=== PATIENT | female | born 1945 | race Caucasian/White ===

== ENCOUNTER 2021-08-18 12:04 | Emergency (ER) | payer MEDICARE ==
--- NOTE | 2021-08-18 14:08 | ED ---
GI Bleed HPI - General Source: patient, RN notes reviewed Mode of arrival: ambulatory Limitations: no limitations <Mick Freed - Last Filed: 08/18/21 14:06> <Julia Persaud - Last Filed: 08/19/21 01:05> - General Stated complaint: poss bowel blockage Time Seen by Provider: 08/18/21 13:30 - History of Present Illness Initial comments: 76-year-old female presents emergency Department with chief complaint of diarrhea, rectal bleeding. Patient states his been going on since last week. Patient states that she did see her primary care physician who placed her on some Imodium. Patient is concern as she's having severe watery diarrhea with bright red blood. Patient is on Eliquis. Patient states she is on Eliquis for prior DVT. Patient has no fevers chills no chest pain or shortness breath. (Mick Freed) - Related Data Home Medications Medication Instructions Recorded Confirmed Apixaban [Eliquis] 5 mg PO BID 08/18/21 08/18/21 Furosemide [Lasix] 20 mg PO TUFR 08/18/21 08/18/21 Hydrochlorothiazide 12.5 mg PO DAILY 08/18/21 08/18/21 [hydroCHLOROthiazide] Loratadine [Claritin] 10 mg PO DAILY PRN 08/18/21 08/18/21 Melatonin 5 mg PO HS PRN 08/18/21 08/18/21 Verapamil HCl [Verapamil ER] 120 mg PO DAILY 08/18/21 08/18/21 Allergies Allergy/AdvReac Type Severity Reaction Status Date / Time Penicillins Allergy Swelling Verified 08/18/21 15:54 Review of Systems ROS Other: All systems not noted in ROS Statement are negative. <Mick Freed - Last Filed: 08/18/21 14:06> ROS Other: All systems not noted in ROS Statement are negative. <Julia Persaud - Last Filed: 08/19/21 01:05> ROS Statement: Those systems with pertinent positive or pertinent negative responses have been documented in the HPI. General Exam General appearance: alert, in no apparent distress, other (Well-developed, well- nourished female in no acute distress. Heart rate 81, respirations 18, blood pressure 135/68.) ENT exam: Present: normal exam, mucous membranes moist Respiratory exam: Present: normal lung sounds bilaterally. Absent: respiratory distress, wheezes, rales, rhonchi, stridor Cardiovascular Exam: Present: regular rate, normal rhythm, normal heart sounds. Absent: systolic murmur, diastolic murmur, rubs, gallop, clicks GI/Abdominal exam: Present: soft, normal bowel sounds. Absent: distended, tenderness, guarding, rebound Rectal exam: Present: heme (+) stool. Absent: mass, tenderness Back exam: Absent: CVA tenderness (R), CVA tenderness (L) Neurological exam: Present: alert, oriented X3, CN II-XII intact Psychiatric exam: Present: normal affect, normal mood Skin exam: Present: warm, dry, intact, normal color. Absent: rash <Julia Persaud - Last Filed: 08/19/21 01:05> Course <Julia Persaud - Last Filed: 08/19/21 01:05> Vital Signs 08/18/21 08/18/21 08/18/21 14:05 16:00 17:00 Pulse Rate 81 Respiratory 18 18 18 Rate Blood Pressure 135/68 08/18/21 18:00 Pulse Rate Respiratory 18 Rate Blood Pressure - Reevaluation(s) Reevaluation #1: 08/18/21 9734: Patient continues to be unable to provide stool sample. Resting comfortably at this time; no cramping, nausea, or distress. Reports good appetite. (Julia Persaud) Medical Decision Making - Lab Data Result diagrams: 08/18/21 14:26 08/18/21 14:26 - Radiology Data Radiology results: report reviewed, image reviewed <Julia Persaud - Last Filed: 08/19/21 01:05> - Medical Decision Making 76-year-old female with a history of anticoagulation therapy due to DVT, is evaluated for complaints of bloody diarrhea for the past 5 days. No significant physical exam findings. Patient is hemodynamically stable with no dizziness or l ightheadedness. Lab findings do indicate hypokalemia, K+ 3.0, which was supplemented PO. Other noteworthy labs include Hemoglobin 17.3, hematocrit 49.9. FOBT +. CT of the abdomen and pelvis was obtained showing no obstruction and mild wall thickening involving the sigmoid colon. This patient's case was discussed with my attending Dr. Donnelly. Patient is instructed to follow up with her primary care provider for further evaluation and treatment. Return parameters were discussed in detail. Patient verbalizes understanding and agrees with this plan. (Julia Persaud) - Lab Data Lab Results 08/18/21 08/18/21 08/18/21 Range/Units 14:20 14:26 14:26 WBC 8.8 (3.8-10.6) k/uL RBC 5.30 (3.80-5.40) m/uL Hgb 17.3 H (11.4-16.0) gm/dL Hct 49.9 H (34.0-46.0) % MCV 94.1 (80.0-100.0) fL MCH 32.6 (25.0-35.0) pg MCHC 34.6 (31.0-37.0) g/dL RDW 13.9 (11.5-15.5) % Plt Count 198 (150-450) k/uL MPV 7.9 Neutrophils % 49 % Lymphocytes % 41 % Monocytes % 6 % Eosinophils % 2 % Basophils % 1 % Neutrophils # 4.3 (1.3-7.7) k/uL Lymphocytes # 3.6 (1.0-4.8) k/uL Monocytes # 0.5 (0-1.0) k/uL Eosinophils # 0.2 (0-0.7) k/uL Basophils # 0.1 (0-0.2) k/uL PT 11.2 (9.0-12.0) sec INR 1.1 (<1.2) APTT 28.0 (22.0-30.0) sec Sodium (137-145) mmol/L Potassium (3.5-5.1) mmol/L Chloride (98-107) mmol/L Carbon Dioxide (22-30) mmol/L Anion Gap mmol/L BUN (7-17) mg/dL Creatinine (0.52-1.04) mg/dL Est GFR (CKD-EPI)AfAm (>60 ml/min/1.73 sqM) Est GFR (CKD-EPI)NonAf (>60 ml/min/1.73 sqM) Glucose (74-99) mg/dL Plasma Lactic Acid Nishant (0.7-2.0) mmol/L Calcium (8.4-10.2) mg/dL Total Bilirubin (0.2-1.3) mg/dL AST (14-36) U/L ALT (4-34) U/L Alkaline Phosphatase (38-126) U/L Troponin I (0.000-0.034) ng/mL Total Protein (6.3-8.2) g/dL Albumin (3.5-5.0) g/dL Lipase (23-300) U/L Urine Color Urine Appearance (Clear) Urine pH (5.0-8.0) Ur Specific [place] (1.001-1.035) Urine Protein (Negative) Urine Glucose (UA) (Negative) Urine Ketones (Negative) Urine Blood (Negative) Urine Nitrite (Negative) Urine Bilirubin (Negative) Urine Urobilinogen (<2.0) mg/dL Ur Leukocyte Esterase (Negative) Urine RBC (0-5) /hpf Urine WBC (0-5) /hpf Ur Squamous Epith Cells (0-4) /hpf Urine Bacteria (None) /hpf Urine Mucus (None) /hpf Stool Occult Blood (Negative) Blood Type Blood Type Confirm O Positive Blood Type Recheck Bld Type Recheck Status Antibody Screen Spec Expiration Date 08/18/21 08/18/21 08/18/21 Range/Units 14:26 14:26 14:26 WBC (3.8-10.6) k/uL RBC (3.80-5.40) m/uL Hgb (11.4-16.0) gm/dL Hct (34.0-46.0) % MCV (80.0-100.0) fL MCH (25.0-35.0) pg MCHC (31.0-37.0) g/dL RDW (11.5-15.5) % Plt Count (150-450) k/uL MPV Neutrophils % % Lymphocytes % % Monocytes % % Eosinophils % % Basophils % % Neutrophils # (1.3-7.7) k/uL Lymphocytes # (1.0-4.8) k/uL Monocytes # (0-1.0) k/uL Eosinophils # (0-0.7) k/uL Basophils # (0-0.2) k/uL PT (9.0-12.0) sec INR (<1.2) APTT (22.0-30.0) sec Sodium 137 (137-145) mmol/L Potassium 3.0 L (3.5-5.1) mmol/L Chloride 101 (98-107) mmol/L Carbon Dioxide 25 (22-30) mmol/L Anion Gap 11 mmol/L BUN 19 H (7-17) mg/dL Creatinine 0.60 (0.52-1.04) mg/dL Est GFR (CKD-EPI)AfAm >90 (>60 ml/min/1.73 sqM) Est GFR (CKD-EPI)NonAf >90 (>60 ml/min/1.73 sqM) Glucose 103 H (74-99) mg/dL Plasma Lactic Acid Nishant 1.4 (0.7-2.0) mmol/L Calcium 9.7 (8.4-10.2) mg/dL Total Bilirubin 1.6 H (0.2-1.3) mg/dL AST 34 (14-36) U/L ALT 14 (4-34) U/L Alkaline Phosphatase 81 (38-126) U/L Troponin I <0.012 (0.000-0.034) ng/mL Total Protein 7.8 (6.3-8.2) g/dL Albumin 4.4 (3.5-5.0) g/dL Lipase 56 (23-300) U/L Urine Color Urine Appearance (Clear) Urine pH (5.0-8.0) Ur Specific [place] (1.001-1.035) Urine Protein (Negative) Urine Glucose (UA) (Negative) Urine Ketones (Negative) Urine Blood (Negative) Urine Nitrite (Negative) Urine Bilirubin (Negative) Urine Urobilinogen (<2.0) mg/dL Ur Leukocyte Esterase (Negative) Urine RBC (0-5) /hpf Urine WBC (0-5) /hpf Ur Squamous Epith Cells (0-4) /hpf Urine Bacteria (None) /hpf Urine Mucus (None) /hpf Stool Occult Blood (Negative) Blood Type Blood Type Confirm Blood Type Recheck Bld Type Recheck Status Antibody Screen Spec Expiration Date 08/18/21 08/18/21 08/18/21 Range/Units 14:26 18:35 19:58 WBC (3.8-10.6) k/uL RBC (3.80-5.40) m/uL Hgb (11.4-16.0) gm/dL Hct (34.0-46.0) % MCV (80.0-100.0) fL MCH (25.0-35.0) pg MCHC (31.0-37.0) g/dL RDW (11.5-15.5) % Plt Count (150-450) k/uL MPV Neutrophils % % Lymphocytes % % Monocytes % % Eosinophils % % Basophils % % Neutrophils # (1.3-7.7) k/uL Lymphocytes # (1.0-4.8) k/uL Monocytes # (0-1.0) k/uL Eosinophils # (0-0.7) k/uL Basophils # (0-0.2) k/uL PT (9.0-12.0) sec INR (<1.2) APTT (22.0-30.0) sec Sodium (137-145) mmol/L Potassium (3.5-5.1) mmol/L Chloride (98-107) mmol/L Carbon Dioxide (22-30) mmol/L Anion Gap mmol/L BUN (7-17) mg/dL Creatinine (0.52-1.04) mg/dL Est GFR (CKD-EPI)AfAm (>60 ml/min/1.73 sqM) Est GFR (CKD-EPI)NonAf (>60 ml/min/1.73 sqM) Glucose (74-99) mg/dL Plasma Lactic Acid Nishant (0.7-2.0) mmol/L Calcium (8.4-10.2) mg/dL Total Bilirubin (0.2-1.3) mg/dL AST (14-36) U/L ALT (4-34) U/L Alkaline Phosphatase (38-126) U/L Troponin I (0.000-0.034) ng/mL Total Protein (6.3-8.2) g/dL Albumin (3.5-5.0) g/dL Lipase (23-300) U/L Urine Color Yellow Urine Appearance Cloudy H (Clear) Urine pH 6.5 (5.0-8.0) Ur Specific [place] 1.014 (1.001-1.035) Urine Protein Negative (Negative) Urine Glucose (UA) Negative (Negative) Urine Ketones Negative (Negative) Urine Blood Negative (Negative) Urine Nitrite Negative (Negative) Urine Bilirubin Negative (Negative) Urine Urobilinogen <2.0 (<2.0) mg/dL Ur Leukocyte Esterase Trace H (Negative) Urine RBC 2 (0-5) /hpf Urine WBC 4 (0-5) /hpf Ur Squamous Epith Cells 4 (0-4) /hpf Urine Bacteria Few H (None) /hpf Urine Mucus Rare H (None) /hpf Stool Occult Blood Positive H (Negative) Blood Type O Positive Blood Type Confirm Blood Type Recheck No Previous Record Bld Type Recheck Status CABO Indicated Antibody Screen NEGATIVE Spec Expiration Date 08/21/20212325 - Radiology Data CT of the abdomen and pelvis was obtained. Report was reviewed incident entirety. Impression per Dr. De Leon is nonspecific abdomen with no obstruction. She will wall thickening involving the sigmoid colon could be associated with mild colitis correlate clinically. Additional findings include to gallbladder hydrops with cholelithiasis. (Julia Persaud) Disposition <Mick Freed - Last Filed: 08/18/21 14:06> Is patient prescribed a controlled substance at d/c from ED?: No Time of Disposition: 19:47 <Julia Persaud - Last Filed: 08/19/21 01:05> Clinical Impression: Diarrhea, Hypokalemia, GI (gastrointestinal bleed) Disposition: HOME SELF-CARE Condition: Stable Instructions (If sedation given, give patient instructions): Gastrointestinal Bleeding (ED), Hypokalemia (ED), Acute Diarrhea (ED) Additional Instructions: Follow-up with Dr. Borges tomorrow morning for further evaluation and treatment. Let him know that you were seen in the emergency department and had a full workup including lab work and CAT scan. Return to this emergency Department or go to your nearest emergency department with any new, worsening, or concerning symptoms. Referrals: Pablo Borges MD [Primary Care Provider] - 1-2 days
[2021-08-18 14:11] VITALS: BP 135/68; PULSE 81; RESP 18
[2021-08-18 14:43] LABS: Basophils # (A) 0.1 k/uL (0-0.2); Basophils % (A) 1 %; Eosinophils # (A) 0.2 k/uL (0-0.7); Eosinophils % (A) 2 %; HCT 49.9 % (34.0-46.0); HGB 17.3 gm/dL (11.4-16.0); Lymphocytes # (A) 3.6 k/uL (1.0-4.8); Lymphocytes % (A) 41 %; MCH 32.6 pg (25.0-35.0); MCHC 34.6 g/dL (31.0-37.0); MCV 94.1 fL (80.0-100.0); Mean Platelet Volume 7.9; Monocytes # (A) 0.5 k/uL (0-1.0); Monocytes % (A) 6 %; Neutrophils # (A) 4.3 k/uL (1.3-7.7); Neutrophils % (A) 49 %; Platelet Count 198 k/uL (150-450); RDW 13.9 % (11.5-15.5); WBC 8.8 k/uL (3.8-10.6)
[2021-08-18 14:54] LABS: INR 1.1 (<1.2); Prothrombin Time 11.2 sec (9.0-12.0)
[2021-08-18 14:55] LABS: ALT 14 U/L (4-34); AST 34 U/L (14-36); African American GFR (CKD) >90 (>60 ml/min/1.73 sqM); Albumin 4.4 g/dL (3.5-5.0); Alkaline Phosphatase 81 U/L (38-126); Anion Gap 11 mmol/L; Blood Urea Nitrogen 19 mg/dL (7-17); Calcium 9.7 mg/dL (8.4-10.2); Carbon Dioxide 25 mmol/L (22-30); Chloride 101 mmol/L (98-107); Glucose 103 mg/dL (74-99); Lipase 56 U/L (23-300); Non-African American GFR(CKD) >90 (>60 ml/min/1.73 sqM); Sodium 137 mmol/L (137-145); Total Bilirubin 1.6 mg/dL (0.2-1.3); Total Protein 7.8 g/dL (6.3-8.2)
[2021-08-18] MEDS ORDERED: PANTOPRAZOLE 40 MG/10 ML VIAL IVP STA (15:24)
[2021-08-18] MEDS ORDERED: SODIUM CHLORIDE 0.9% 1,000 ML IV STA (15:24)
[2021-08-18] MEDS ORDERED: POTASSIUM CHLORIDE ER 20 MEQ TAB.ER PO STA (15:27)
--- NOTE | 2021-08-18 17:48 | CT ---
EXAMINATION TYPE: CT abdomen pelvis w con DATE OF EXAM: 08/18/2021 COMPARISON: None HISTORY: Abdominal pain and bloody diarrhea x [address] DLP: 834.3 mGycm Automated exposure control for dose reduction was used. CONTRAST: CT scan of the abdomen pelvis is performed with IV Contrast, patient injected with 100 mL of Isovue 3 00. FINDINGS- LUNG BASES-suggest COPD and chronic interstitial lung disease.. LIVER/TO-rgw-guztaxuwxlc liver can be associated with hepatic steatosis correlate with liver function exam. Gallbladder is prominent there is a tiny gallstones PANCREAS- No gross abnormality is seen. SPLEEN- No gross abnormality is seen. ADRENALS- No gross abnormality is seen. KIDNEYS/BLADDER-no hydronephrosis.. BOWEL-diverticulosis with no diagnostic evidence of diverticulitis. Very mild induration wall thicken ing sigmoid colon correlate for colitis. Underlying mucosal lesion not excluded. Normal appendix. LYMPH NODES- No greater than 1cm abdominal or pelvic lymph nodes areappreciated. OSSEOUS STRUCTURES- No significant abnormality is seen. OTHER- bladder somewhat low-lying in position correlate for cystocele. Atherosclerotic change aorta and its sidebranches. IMPRESSION- 1. Nonspecific abdomen with no obstruction. Nonvisualization of the appendix. Questionable wall thick ening involving the sigmoid colon could be associated with mild colitis correlate clinically. 2 gallb ladder hydrops with cholelithiasis
[2021-08-18 18:47] LABS: Appearance,Urine Cloudy (Clear); Bacteria,Urine Few /hpf; Bilirubin,Urine Negative (Negative); Blood,Urine Negative (Negative); Color,Urine Yellow; Glucose,Urine (UA) Negative (Negative); Ketones,Urine Negative (Negative); Leukocyte Esterase,Urine Trace (Negative); Mucus,Urine Rare /hpf; Nitrite,Urine Negative (Negative); PH, Urine 6.5 (5.0-8.0); Protein,Urine Negative (Negative); RBC,Urine 2 /hpf (0-5); Specific Gravity,Urine 1.014 (1.001-1.035); Squamous Epithelial Cell,Urine 4 /hpf (0-4); Urobilinogen,Urine <2.0 mg/dL (<2.0); WBC,Urine 4 /hpf (0-5)
== END 2021-08-18 20:02 | disposition home or self-care (01) ==
LOC: EC 12:04
DX: K92.2 Gastrointestinal hemorrhage, unspecified (principal); E87.6 Hypokalemia; R19.7 Diarrhea, unspecified
CPT/HCPCS: 36415; 86900; 86901; 80053; 83605; 83690; 84484; 85025; 85610; 85730; 86850; 82272; 81001; 74177; 99284; 96374; 96361; C9113; Q9967

== ENCOUNTER 2023-06-26 12:02 | Inpatient (IN) | payer MEDICARE, BC ==
[2023-06-26] MEDS ORDERED: HYDROmorphone 1 MG/ML 1 ML SYRINGE IVP STA (12:26)
--- NOTE | 2023-06-26 12:27 | ED ---
Lower Extremity Injury HPI - General Chief Complaint: Extremity Injury, Lower Stated Complaint: Fall-right leg injury Time Seen by Provider: 06/26/23 12:10 Source: patient, RN notes reviewed Mode of arrival: EMS - History of Present Illness Initial Comments: This is a 77-year-old female who presents to the emergency department for a fall. Patient is a transfer from [facility], where she was evaluated earlier today after a fall. She had lost her balance last night, when she fell and landed on her right hip. EMS was called because she was unable to get back up. She was found to have a femur fracture, and was subsequently transferred here for intervention. Patient is on Eliquis for prior DVT. She is also on oxygen at home. Additionally, patient did break her back 10 months ago and is continuing to deal with pain from that as well. MD Complaint: hip injury - Related Data Home Medications Medication Instructions Recorded Confirmed Apixaban [Eliquis] 5 mg PO BID 08/18/21 06/26/23 Furosemide [Lasix] 20 mg PO DAILY 08/18/21 06/26/23 Melatonin 5 mg PO HS 08/18/21 06/26/23 Albuterol Sulfate [Ventolin HFA] 2 puff INHALATION RT-Q6H PRN 06/26/23 06/26/23 Aspirin EC [Ecotrin Low Dose] 81 mg PO DAILY 06/26/23 06/26/23 Atorvastatin [Lipitor] 80 mg PO HS 06/26/23 06/26/23 Budesonide/Formoterol Fumarate 2 puff INHALATION RT-BID 06/26/23 06/26/23 [Symbicort 160-4.5 Mcg Inhaler] DULoxetine HCL [Cymbalta] 30 mg PO DAILY 06/26/23 06/26/23 Diclofenac Sodium Gel [Voltaren 2 - 4 gm TOPICAL QID PRN 06/26/23 06/26/23 Gel] Ergocalciferol [Vitamin D2 (1250 1,250 mcg PO Q7D 06/26/23 06/26/23 Mcg = 33835 Iu)] HYDROcodone/APAP 7.5-325MG [[place] 1 - 1.5 tab PO Q6H PRN 06/26/23 06/26/23 7.5-325] LORazepam [Ativan] 0.5 mg PO Q8H 06/26/23 06/26/23 Metoprolol Succinate (ER) [Toprol 100 mg PO DAILY 06/26/23 06/26/23 Xl] Omeprazole 40 mg PO DAILY 06/26/23 06/26/23 Potassium Chloride [Klor-Con M20] 20 meq PO DAILY 06/26/23 06/26/23 Sennosides [Senokot] 8.6 mg PO DAILY 06/26/23 06/26/23 polyethylene glycoL 3350 [Miralax] 17 gm PO BID 06/26/23 06/26/23 Allergies Allergy/AdvReac Type Severity Reaction Status Date / Time Penicillins Allergy Swelling Verified 06/26/23 15:35 Review of Systems ROS Statement: Those systems with pertinent positive or pertinent negative responses have been documented in the HPI. ROS Other: All systems not noted in ROS Statement are negative. Past Medical History Past Medical History: Cancer, COPD, Hypertension Additional Past Medical History / Comment(s): R leg DVT, breast CA, History of Any Multi-Drug Resistant Organisms: None Reported Past Surgical History: Hysterectomy Past Psychological History: Anxiety, Depression Smoking Status: Former smoker Past Alcohol Use History: None Reported Past Drug Use History: None Reported - Past Family History Father History Unknown: Yes General Exam Limitations: no limitations General appearance: alert, in distress Head exam: Present: atraumatic, normocephalic, normal inspection Respiratory exam: Present: normal lung sounds bilaterally. Absent: respiratory distress, wheezes, rales, rhonchi, stridor Cardiovascular Exam: Present: regular rate, normal rhythm, normal heart sounds. Absent: systolic murmur, diastolic murmur, rubs, gallop, clicks Extremities exam: Present: other (Right leg is shortnened and externally rotated. 2+ DP and PT pulses. Capillary refill less than 1 second.) Neurological exam: Present: alert, oriented X3, CN II-XII intact Psychiatric exam: Present: normal affect, normal mood Skin exam: Present: warm, dry, intact, normal color. Absent: rash Course Vital Signs 06/26/23 06/26/23 12:11 14:25 Temperature 98 F Pulse Rate 75 89 Respiratory 20 18 Rate Blood Pressure 172/74 152/98 O2 Sat by Pulse 96 97 Oximetry Medical Decision Making - Medical Decision Making This is a 77-year-old female who presents to the emergency department for a right hip fracture. Was pt. sent in by a medical professional or institution? @ -No Did you speak to anyone other than the patient for history? @ -No Did you review nursing and triage notes? @ -Yes, and I agree, it is accurate with regards to the patient's symptoms. Were old charts reviewed? @ -Yes, outside records sent from [place] were reviewed. Computed tomography scan of the pelvis reveals a comminuted and displaced right intertrochanteric fracture with adjacent stranding/hematoma. Differential Diagnosis? @ -Not applicable EKG interpreted by me (3pts min.)? @ -EKG interpreted by me demonstrating the following: Sinus rhythm. Ventricular rate 80 beats per minute, DC interval 134 ms, QRS duration 97 ms, QTC 432 ms. X-rays interpreted by me (1pt min.)? @ -Chest x-ray obtained, my interpretation identifies no localized consolidations or infiltrates. CT interpreted by me (1pt min.)? @ -Not obtained U/S interpreted by me (1pt. min.)? @ -Not obtained What testing was considered but not performed? (CT, X-rays, U/S, labs)? Why? @ -None What meds were considered but not given? Why? @ -None Did you discuss the management of the patient with other professionals? @ -Yes, Dr. Pitts, orthopedics, who requested the patient be admitted to medicine due to her multiple comorbidities. Dr. Honeycutt accepts the patient for admission. Did you reconcile home meds? @ -Yes Was smoking cessation discussed for >3mins.? @ -No Was critical care preformed (if so, how long)? @ -No Were there social determinants of health that impacted care today? How? (Homelessness, low income, unemployed, alcoholism, drug addiction, transportation, low edu. Level, literacy, decrease access to med. care, half-way, rehab)? @ -No Was there de-escalation of care discussed even if they declined? (Discuss DNR or withdrawal of care, Hospice)? @ -No What co-morbidities impacted this encounter? (DM, HTN, Smoking, COPD, CAD, Cancer, CVA, Hep., AIDS, mental health diagnosis, sleep apnea, morbid obesity)? @ -DVT, COPD, HTN Was patient admitted / discharged? @ -Admitted. Patient admitted for right intertrochanteric fracture diagnosed at [facility]. The discs containing the imaging were scan into the system for review. Additionally, the records sent with the patient from [facility] also be scanned in for review. Orthopedics requested the patient be admitted to medicine given her multiple comorbidities, and medicine was agreeable to this. Orthopedics listed as consult. Medicine requested a cardiology evaluation for surgical clearance as she is on both oxygen and Eliquis. Patient kept NPO after midnight per orthopedics request. Jordan catheter had already been placed at [place]. Preoperative lab work, EKG, and chest x-ray were obtained as well. Undiagnosed new problem with uncertain prognosis? @ -None Drug Therapy requiring intensive monitoring for toxicity (Heparin, Nitro, Insulin, Cardizem)? @ -None Were any procedures done? @ -None Diagnosis/symptom? @ -Right intertrochanteric fracture, fall Acute, or Chronic, or Acute on Chronic? @ -Acute Uncomplicated (without systemic symptoms) or Complicated (systemic symptoms)? @ -Uncomplicated Side effects of treatment? @ -None Exacerbation, Progression, or Severe Exacerbation] @ -Not applicable Poses a threat to life or bodily function? @ -Yes This case was discussed in detail with the attending ED physician, Dr. Mosley. Presentation, findings, and treatment plan discussed in detail as well. - Lab Data Result diagrams: 06/26/23 13:20 06/26/23 13:20 Lab Results 06/26/23 06/26/23 06/26/23 Range/Units 13:20 13:20 13:20 WBC 8.8 (3.8-10.6) k/uL RBC 4.44 (3.80-5.40) m/uL Hgb 14.8 (11.4-16.0) gm/dL Hct 44.1 (34.0-46.0) % MCV 99.3 (80.0-100.0) fL MCH 33.3 (25.0-35.0) pg MCHC 33.5 (31.0-37.0) g/dL RDW 14.4 (11.5-15.5) % Plt Count 144 L (150-450) k/uL MPV 8.2 Neutrophils % 65 % Lymphocytes % 26 % Monocytes % 7 % Eosinophils % 1 % Basophils % 0 % Neutrophils # 5.7 (1.3-7.7) k/uL Lymphocytes # 2.3 (1.0-4.8) k/uL Monocytes # 0.6 (0-1.0) k/uL Eosinophils # 0.1 (0-0.7) k/uL Basophils # 0.0 (0-0.2) k/uL Macrocytosis Slight PT 11.5 (9.0-12.0) sec INR 1.1 (<1.2) APTT 26.9 (22.0-30.0) sec Sodium 139 (137-145) mmol/L Potassium 3.9 (3.5-5.1) mmol/L Chloride 108 H (98-107) mmol/L Carbon Dioxide 25 (22-30) mmol/L Anion Gap 6 mmol/L BUN 13 (7-17) mg/dL Creatinine 0.47 L (0.52-1.04) mg/dL Est GFR (CKD-EPI)AfAm >90 (>60 ml/min/1.73 sqM) Est GFR (CKD-EPI)NonAf >90 (>60 ml/min/1.73 sqM) Glucose 120 H (74-99) mg/dL Calcium 8.7 (8.4-10.2) mg/dL Total Bilirubin 2.0 H (0.2-1.3) mg/dL AST 24 (14-36) U/L ALT 18 (4-34) U/L Alkaline Phosphatase 84 (38-126) U/L Total Protein 6.3 (6.3-8.2) g/dL Albumin 3.4 L (3.5-5.0) g/dL - Radiology Data Radiology results: report reviewed, image reviewed Disposition Clinical Impression: Fracture, intertrochanteric, right femur Disposition: ADMITTED IP TO THIS HOSP
[2023-06-26] MEDS ORDERED: ACETAMINOPHEN TAB 325 MG TAB PO PRN (12:39)
[2023-06-26] MEDS ORDERED: NALOXONE 0.4 MG/ML 1 ML VIAL IV PRN (12:39)
[2023-06-26] MEDS ORDERED: HYDROmorphone 0.5 MG/0.5 ML SYRINGE IVP PRN (12:39)
--- NOTE | 2023-06-26 13:17 | XR ---
EXAMINATION TYPE: XR chest 1V DATE OF EXAM: 06/26/2023 1:13 PM COMPARISON: None TECHNIQUE: XR chest 1V Frontal view of the chest. CLINICAL INDICATION:Female, 77 years old with history of Fall; FINDINGS: Lungs/Pleura: Prominent interstitial lung markings are seen scattered throughout the lungs. No eviden ce of focal consolidation, pneumothorax or pleural effusion. Pulmonary vascularity: Unremarkable. Heart/mediastinum: Cardiomediastinal silhouette is unremarkable. Musculoskeletal: No acute osseous pathology. IMPRESSION: Interstitial lung changes, No acute cardiopulmonary disease/process.
[2023-06-26 13:30] LABS: Basophils % (A) 0 %; Eosinophils # (A) 0.1 k/uL (0-0.7); Eosinophils % (A) 1 %; HCT 44.1 % (34.0-46.0); HGB 14.8 gm/dL (11.4-16.0); Lymphocytes # (A) 2.3 k/uL (1.0-4.8); Lymphocytes % (A) 26 %; MCH 33.3 pg (25.0-35.0); MCHC 33.5 g/dL (31.0-37.0); MCV 99.3 fL (80.0-100.0); Macrocytosis Slight; Mean Platelet Volume 8.2; Monocytes # (A) 0.6 k/uL (0-1.0); Monocytes % (A) 7 %; Neutrophils # (A) 5.7 k/uL (1.3-7.7); Neutrophils % (A) 65 %; Platelet Count 144 k/uL (150-450); RBC 4.44 m/uL (3.80-5.40); RDW 14.4 % (11.5-15.5); WBC 8.8 k/uL (3.8-10.6)
[2023-06-26 13:50] LABS: ALT 18 U/L (4-34); AST 24 U/L (14-36); African American GFR (CKD) >90 (>60 ml/min/1.73 sqM); Albumin 3.4 g/dL (3.5-5.0); Alkaline Phosphatase 84 U/L (38-126); Anion Gap 6 mmol/L; Blood Urea Nitrogen 13 mg/dL (7-17); Calcium 8.7 mg/dL (8.4-10.2); Carbon Dioxide 25 mmol/L (22-30); Chloride 108 mmol/L (98-107); Glucose 120 mg/dL (74-99); Non-African American GFR(CKD) >90 (>60 ml/min/1.73 sqM); Potassium 3.9 mmol/L (3.5-5.1); Sodium 139 mmol/L (137-145); Total Protein 6.3 g/dL (6.3-8.2)
[2023-06-26 13:53] LABS: INR 1.1 (<1.2); Partial Thromboplastin Time 26.9 sec (22.0-30.0); Prothrombin Time 11.5 sec (9.0-12.0)
[2023-06-26] MEDS: HYDROmorphone 1 MG/ML 1 ML SYRINGE IVP PRN ×3 (14:28→20:06)
[2023-06-26] MEDS: ONDANSETRON 4 MG/2 ML VIAL IVP PRN (15:38)
[2023-06-26] MEDS ORDERED: ALBUTEROL HFA INHALER INHALATION PRN (16:42)
[2023-06-26] MEDS ORDERED: DICLOFENAC SODIUM GEL 100 GM TUBE TOPICAL PRN (16:42)
[2023-06-26] MEDS: ERGOCALCIFEROL 1,250 MCG (50,000 IU) CAPSULE PO SCH (16:54)
[2023-06-26] MEDS: LORazepam 0.5 MG TAB PO SCH (16:56)
--- NOTE | 2023-06-26 19:22 | P.HPIM ---
History of Present Illness H&P Date: 06/26/23 Chief Complaint: 4 with right leg injury 77-year-old female who presents to the emergency department for a fall. Patient is a transfer from [facility], where she was evaluated earlier today after a fall. She had lost her balance last night, when she fell and landed on her right hip. EMS was called because she was unable to get back up. She was found to have a femur fracture, and was subsequently transferred here for intervention. Patient is on Eliquis for prior DVT. She is also on oxygen at home. Additionally, patient did break her back 10 months ago and is continuing to deal with pain from that as well. EKG interpreted by me demonstrating the following: Sinus rhythm. Ventricular rate 80 beats per minute, MS interval 134 ms, QRS duration 97 ms, QTC 432 ms. Hip x-ray reveals right intertrochanteric fracture Patient is admitted for further evaluation and treatment via orthopedic service Review of Systems REVIEW OF SYSTEMS: CONSTITUTIONAL: No fever, no malaise, no fatigue. HEENT: No recent visual problems or hearing problems. Denied any sore throat. CARDIOVASCULAR: No chest pain, orthopnea, PND, no palpitations, no syncope. PULMONARY: No shortness of breath, no cough, no hemoptysis. GASTROINTESTINAL: No diarrhea, no nausea, no vomiting, no abdominal pain. NEUROLOGICAL: No headaches, no weakness, no numbness. HEMATOLOGICAL: Denies any bleeding or petechiae. GENITOURINARY: Denies any burning micturition, frequency, or urgency. MUSCULOSKELETAL/RHEUMATOLOGICAL: Denies any joint pain, swelling, or any muscle pain. ENDOCRINE: Denies any polyuria or polydipsia. The rest of the 14-point review of systems is negative. Past Medical History Past Medical History: Cancer, COPD, Hypertension Additional Past Medical History / Comment(s): R leg DVT, breast CA, History of Any Multi-Drug Resistant Organisms: None Reported Past Surgical History: Hysterectomy Past Psychological History: Anxiety, Depression Smoking Status: Former smoker Past Alcohol Use History: None Reported Past Drug Use History: None Reported - Past Family History Father History Unknown: Yes Medications and Allergies Home Medications Medication Instructions Recorded Confirmed Type Apixaban [Eliquis] 5 mg PO BID 08/18/21 06/26/23 History Furosemide [Lasix] 20 mg PO DAILY 08/18/21 06/26/23 History Melatonin 5 mg PO HS 08/18/21 06/26/23 History Albuterol Sulfate [Ventolin HFA] 2 puff INHALATION RT-Q6H PRN 06/26/23 06/26/23 History Aspirin EC [Ecotrin Low Dose] 81 mg PO DAILY 06/26/23 06/26/23 History Atorvastatin [Lipitor] 80 mg PO HS 06/26/23 06/26/23 History Budesonide/Formoterol Fumarate 2 puff INHALATION RT-BID 06/26/23 06/26/23 History [Symbicort 160-4.5 Mcg Inhaler] DULoxetine HCL [Cymbalta] 30 mg PO DAILY 06/26/23 06/26/23 History Diclofenac Sodium Gel [Voltaren 2 - 4 gm TOPICAL QID PRN 06/26/23 06/26/23 History Gel] Ergocalciferol [Vitamin D2 (1250 1,250 mcg PO Q7D 06/26/23 06/26/23 History Mcg = 11519 Iu)] HYDROcodone/APAP 7.5-325MG [[place] 1 - 1.5 tab PO Q6H PRN 06/26/23 06/26/23 History 7.5-325] LORazepam [Ativan] 0.5 mg PO Q8H 06/26/23 06/26/23 History Metoprolol Succinate (ER) [Toprol 100 mg PO DAILY 06/26/23 06/26/23 History Xl] Omeprazole 40 mg PO DAILY 06/26/23 06/26/23 History Potassium Chloride [Klor-Con M20] 20 meq PO DAILY 06/26/23 06/26/23 History Sennosides [Senokot] 8.6 mg PO DAILY 06/26/23 06/26/23 History polyethylene glycoL 3350 [Miralax] 17 gm PO BID 06/26/23 06/26/23 History Allergies Allergy/AdvReac Type Severity Reaction Status Date / Time Penicillins Allergy Swelling Verified 06/26/23 15:35 Physical Exam Vitals: Vital Signs Temp Pulse Resp BP Pulse Ox 06/26/23 12:11 98 F 75 20 172/74 96 Intake and Output 06/25/23 06/26/23 06/26/23 22:59 06:59 14:59 Other: Weight 55.338 kg PHYSICAL EXAMINATION: GENERAL: The patient is alert and oriented x3, not in any acute distress. Well developed, well nourished. HEENT: Pupils are round and equally reacting to light. EOMI. No scleral icterus. No conjunctival pallor. Normocephalic, atraumatic. No pharyngeal erythema. No thyromegaly. CARDIOVASCULAR: S1 and S2 present. No murmurs, rubs, or gallops. PULMONARY: Chest is clear to auscultation, no wheezing or crackles. ABDOMEN: Soft, nontender, nondistended, normoactive bowel sounds. No palpable organomegaly. MUSCULOSKELETAL: No joint swelling or deformity. EXTREMITIES: No cyanosis, clubbing, or pedal edema. NEUROLOGICAL: Gross neurological examination did not reveal any focal deficits. SKIN: No rashes. Results CBC & Chem 7: 06/26/23 13:20 06/26/23 13:20 Labs: Abnormal Lab Results - Last 24 Hours (Table) 06/26/23 06/26/23 Range/Units 13:20 13:20 Plt Count 144 L (150-450) k/uL Chloride 108 H (98-107) mmol/L Creatinine 0.47 L (0.52-1.04) mg/dL Glucose 120 H (74-99) mg/dL Total Bilirubin 2.0 H (0.2-1.3) mg/dL Albumin 3.4 L (3.5-5.0) g/dL Assessment and Plan Assessment: 1. Fall/right hip fracture - Hip x-ray completed at [facility] reveals right intertrochanteric fracture - Patient is currently on L Graham which is requested to be placed on hold and patient be made nothing by mouth - Cardiology is consulted for cardiac clearance 2. History of right lower extremity DVT; patient takes glucose 5 mg twice a day; hold for hip surgery 3. Hyperlipidemia; Lipitor 80 mg by mouth daily at bedtime 4. Hypertension; metoprolol 100 mg daily 5. COPD; not in exacerbation; continue with home inhaler therapy 6. Anxiety/depression; continue home dose of Cymbalta and Ativan DVT prophylaxis; SCDs only given pending surgical procedure CODE STATUS; full code
[2023-06-26] MEDS: MELATONIN 5 MG TABLET PO SCH (20:44)
[2023-06-26] MEDS: ATORVASTATIN 80 MG TAB PO SCH (20:44)
[2023-06-26] MEDS: polyethylene glycoL 3350 17 GM POWD.PACK PO SCH (20:44)
[2023-06-26] MEDS: SYMBICORT 160-4.5 MCG INHALER INHALATION SCH (20:50)
[2023-06-27] MEDS: LORazepam 0.5 MG TAB PO SCH ×3 (00:01→16:40)
[2023-06-27] MEDS: HYDROmorphone 1 MG/ML 1 ML SYRINGE IVP PRN ×4 (00:01→12:14)
[2023-06-27] MEDS: ONDANSETRON 4 MG/2 ML VIAL IVP PRN ×2 (03:22→15:27)
[2023-06-27] MEDS: POTASSIUM CHLORIDE ER 20 MEQ TAB.ER PO SCH ×3 (07:48→16:55)
[2023-06-27] MEDS: SENNOSIDES 8.6 MG TAB PO SCH (07:48)
[2023-06-27] MEDS: PANTOPRAZOLE 40 MG TABLET PO SCH (07:49)
[2023-06-27] MEDS: polyethylene glycoL 3350 17 GM POWD.PACK PO SCH ×2 (07:49→20:07)
[2023-06-27] MEDS: FUROSEMIDE 20 MG TAB PO SCH (07:50)
[2023-06-27] MEDS: DULoxetine HCL 30 MG CAPSULE.DR PO SCH (08:01)
[2023-06-27] MEDS: SYMBICORT 160-4.5 MCG INHALER INHALATION SCH ×2 (08:11→20:48)
[2023-06-27] MEDS ORDERED: METOPROLOL SUCCINATE (ER) 100 MG TAB.ER.24H PO SCH (09:00)
[2023-06-27 09:59] LABS: BUN/Creat Ratio 22.17 Ratio (12.00-20.00); Blood Urea Nitrogen 13.3 mg/dL (9.0-27.0); Calcium 9.4 mg/dL (8.7-10.3); Chloride 103 mmol/L (96-109); Glucose 118 mg/dL (70-110); Potassium 3.3 mmol/L (3.5-5.5); Sodium 140 mmol/L (135-145)
[2023-06-27 10:43] LABS: Basophils # (A) 0.03 X 10*3/uL (0.00-0.10); Basophils % (A) 0.3 %; Eosinophils # (A) 0.04 X 10*3/uL (0.04-0.35); Eosinophils % (A) 0.3 %; HCT 42.9 % (37.2-46.3); HGB 14.4 d/dL (12.0-15.0); Lymphocytes # (A) 2.71 X 10*3/uL (0.90-5.00); MCH 33.3 pg (27.0-32.0); MCHC 33.6 d/dL (32.0-37.0); MCV 99.1 FL (80.0-97.0); Monocytes # (A) 1.35 X 10*3/uL (0.20-1.00); Monocytes % (A) 11.5 %; NRBC Per 100 WBC 0 X 10*3/uL (0.00-0.01); Neutrophils # (A) 7.59 X 10*3/uL (1.80-7.70); Neutrophils % (A) 64.5 %; Platelet Count 178 X 10*3/uL (140-440); RBC 4.33 X 10*6/uL (4.10-5.20); RDW 14.2 % (11.5-14.5); WBC 11.77 X 10*3/uL (4.50-10.00)
--- NOTE | 2023-06-27 11:16 | XR ---
EXAMINATION TYPE: XR Hip RT and AP Pelvis DATE OF EXAM: 06/27/2023 11:10 AM INDICATION: Patient age:Female; 77 years old; Reason for study: hip fracture; PHH. COMPARISON: CT pelvis 06/26/2023, pelvic radiograph 06/26/2023 TECHNIQUE: The right hip was examined in the frontal and lateral projections and a AP pelvis. FINDINGS: Acute comminuted right proximal femur intratrochanteric fracture with moderate displacement of the fracture fragments. Surrounding soft tissue edema. No dislocation. There is medial joint spac e narrowing with sclerosis and marginal effect ptosis of both hips. Vascular sclerosis. IMPRESSION: 1. Acute moderately displaced right proximal femur intratrochanteric fracture. 2. Mild osteoarthritic changes of both hips.
--- NOTE | 2023-06-27 12:20 | P.CNOR ---
History of Present Illness - HPI Consult date: 06/27/23 History of present illness: This is a 77-year-old female who is admitted for right hip fracture. Patient is seen and evaluated at bedside today. Patient states that she fell at home on 06/26/2023. Patient was evaluated in the emergency room at [facility] and then transferred to [facility]. Patient is on Eliquis for history of DVT and is also on oxygen at home. Patient states that she has also dealing with a healing fracture of her back. Patient's past medical history is significant for DVT, breast cancer, COPD and hypertension. Patient denies any fever/chills, numbness, weakness, tingling, abdominal pain, shortness of breath or chest pain. Review of Systems See HPI. Past Medical History Past Medical History: Cancer, COPD, Hypertension Additional Past Medical History / Comment(s): R leg DVT, breast CA, History of Any Multi-Drug Resistant Organisms: None Reported Past Surgical History: Hysterectomy Past Anesthesia/Blood Transfusion Reactions: No Reported Reaction Past Psychological History: Anxiety, Depression Smoking Status: Former smoker Past Alcohol Use History: None Reported Past Drug Use History: None Reported - Past Family History Father History Unknown: Yes Medications and Allergies Home Medications Medication Instructions Recorded Confirmed Type Apixaban [Eliquis] 5 mg PO BID 08/18/21 06/26/23 History Furosemide [Lasix] 20 mg PO DAILY 08/18/21 06/26/23 History Melatonin 5 mg PO HS 08/18/21 06/26/23 History Albuterol Sulfate [Ventolin HFA] 2 puff INHALATION RT-Q6H PRN 06/26/23 06/26/23 History Aspirin EC [Ecotrin Low Dose] 81 mg PO DAILY 06/26/23 06/26/23 History Atorvastatin [Lipitor] 80 mg PO HS 06/26/23 06/26/23 History Budesonide/Formoterol Fumarate 2 puff INHALATION RT-BID 06/26/23 06/26/23 History [Symbicort 160-4.5 Mcg Inhaler] DULoxetine HCL [Cymbalta] 30 mg PO DAILY 06/26/23 06/26/23 History Diclofenac Sodium Gel [Voltaren 2 - 4 gm TOPICAL QID PRN 06/26/23 06/26/23 History Gel] Ergocalciferol [Vitamin D2 (1250 1,250 mcg PO Q7D 06/26/23 06/26/23 History Mcg = 01658 Iu)] HYDROcodone/APAP 7.5-325MG [[place] 1 - 1.5 tab PO Q6H PRN 06/26/23 06/26/23 History 7.5-325] LORazepam [Ativan] 0.5 mg PO Q8H 06/26/23 06/26/23 History Metoprolol Succinate (ER) [Toprol 100 mg PO DAILY 06/26/23 06/26/23 History Xl] Omeprazole 40 mg PO DAILY 06/26/23 06/26/23 History Potassium Chloride [Klor-Con M20] 20 meq PO DAILY 06/26/23 06/26/23 History Sennosides [Senokot] 8.6 mg PO DAILY 06/26/23 06/26/23 History polyethylene glycoL 3350 [Miralax] 17 gm PO BID 06/26/23 06/26/23 History Allergies Allergy/AdvReac Type Severity Reaction Status Date / Time Penicillins Allergy Swelling Verified 06/26/23 15:35 Physical Examination On exam patient is resting comfortably in bed in no acute distress. Patient is alert and oriented 3. Right lower extremity: The right lower extremity is shortened and externally rotated. Skin is intact. The right lower extremity is warm and well perfused. Calf is soft and nontender to palpation. Sensation intact. Patient has good range of motion of the right foot and ankle. Neurovascular status and circulatory status are intact. Results X-rays of the right hip and pelvis reveal displaced intertrochanteric right femur fracture. - Labs Labs: Abnormal Lab Results - Last 24 Hours (Table) 06/26/23 06/26/23 06/27/23 Range/Units 13:20 13:20 06:24 WBC 11.77 H (4.50-10.00) X 10*3/uL MCV 99.1 H (80.0-97.0) FL MCH 33.3 H (27.0-32.0) pg Plt Count 144 L (150-450) k/uL Monocytes # 1.35 H (0.20-1.00) X 10*3/uL Potassium (3.5-5.5) mmol/L Chloride 108 H (98-107) mmol/L Anion Gap (4.00-12.00) mmol/L Creatinine 0.47 L (0.52-1.04) mg/dL BUN/Creatinine Ratio (12.00-20.00) Ratio Glucose 120 H (74-99) mg/dL Total Bilirubin 2.0 H (0.2-1.3) mg/dL Albumin 3.4 L (3.5-5.0) g/dL 06/27/23 Range/Units 06:24 WBC (4.50-10.00) X 10*3/uL MCV (80.0-97.0) FL MCH (27.0-32.0) pg Plt Count (150-450) k/uL Monocytes # (0.20-1.00) X 10*3/uL Potassium 3.3 L (3.5-5.5) mmol/L Chloride (98-107) mmol/L Anion Gap 13.00 H (4.00-12.00) mmol/L Creatinine (0.52-1.04) mg/dL BUN/Creatinine Ratio 22.17 H (12.00-20.00) Ratio Glucose 118 H (74-99) mg/dL Total Bilirubin (0.2-1.3) mg/dL Albumin (3.5-5.0) g/dL H & H 06/26/23 06/27/23 Range/Units 13:20 06:24 Hgb 14.8 14.4 (11.4-16.0) gm/dL Hct 44.1 42.9 (34.0-46.0) % Coagulation 06/26/23 Range/Units 13:20 INR 1.1 (<1.2) Result Diagrams: 06/27/23 06:24 06/27/23 06:24 Assessment and Plan (1) Fall Current Visit: Yes Status: Acute Code(s): W19.XXXA - UNSPECIFIED FALL, INITIAL ENCOUNTER SNOMED Code(s): 9816522 (2) Fracture, intertrochanteric, right femur Current Visit: Yes Status: Acute Code(s): S72.141A - DISPLACED INTERTROCHANTERIC FRACTURE OF RIGHT FEMUR, INIT SNOMED Code(s): 049208742 Plan: Patient is NPO. Planning for closed reduction and intramedullary nailing of the right hip pending medical and cardiology clearances along with patient consent.
[2023-06-27] MEDS ORDERED: POTASSIUM CHLORIDE 10 MEQ in WATER FOR INJECTION 4 100ML.BAG IVPB STA (12:24)
--- NOTE | 2023-06-27 12:29 | P.CRDCN ---
History of Present Illness Consult date: 06/27/23 Chief complaint: Right hip discomfort History of present illness: The patient is a 77-year-old female patient with a past medical history signifi cant for hypertension and dyslipidemia and history of low back surgery as well as hypoxic respiratory failure on oxygen at home for unknown reason the patient was unable to tell me nor her family. The patient was brought from [facility] after she fell and fractured her hip. She was diagnosed with a right femur fracture. The patient fell with no change in mental status and no presyncope or syncope.Symptoms of chest pain or chest discomfort beach she does have shortness of breath with exertion appeared to be chronic and unchanged compared to before. She was functional to about 6 months ago when she had low back surgery and since then she has not been very functional. Before that she was quite functional and able to do or go to flights of stairs without being symptomatic. No history of coronary artery disease or congestive heart failure or cardiac arrhythmia. The workup during this admission including EKG showing sinus mechanism with PVCs. The rest of the blood work came in to be unremarkable. No recent echocardiogram was performed. She does have history of DVT and currently she is on oral anticoagulation. The examination is remarkable for stable vital signs with regular rhythm and systolic murmur at the right and left upper sternal border with clear breathing sounds bilaterally and no lower extremity is edema noted Assessment Status post fall and right hip fracture History of DVT was on oral anticoagulation Hypertension Dyslipidemia Plan The patient can proceed with the surgery beach she is at intermediate to high risk of perioperative cardiovascular complications given the limited functional capacity Restart the patient back on anticoagulation either orally or subcu using Lovenox as soon as possible and safe after the surgery giving the history of DVT Monitor the blood pressure and heart rate Follow-up with the patient Past Medical History Past Medical History: Cancer, COPD, Hypertension Additional Past Medical History / Comment(s): R leg DVT, breast CA, History of Any Multi-Drug Resistant Organisms: None Reported Past Surgical History: Hysterectomy Past Anesthesia/Blood Transfusion Reactions: No Reported Reaction Past Psychological History: Anxiety, Depression Smoking Status: Former smoker Past Alcohol Use History: None Reported Past Drug Use History: None Reported - Past Family History Father History Unknown: Yes Medications and Allergies Home Medications Medication Instructions Recorded Confirmed Type Apixaban [Eliquis] 5 mg PO BID 08/18/21 06/26/23 History Furosemide [Lasix] 20 mg PO DAILY 08/18/21 06/26/23 History Melatonin 5 mg PO HS 08/18/21 06/26/23 History Albuterol Sulfate [Ventolin HFA] 2 puff INHALATION RT-Q6H PRN 06/26/23 06/26/23 History Aspirin EC [Ecotrin Low Dose] 81 mg PO DAILY 06/26/23 06/26/23 History Atorvastatin [Lipitor] 80 mg PO HS 06/26/23 06/26/23 History Budesonide/Formoterol Fumarate 2 puff INHALATION RT-BID 06/26/23 06/26/23 History [Symbicort 160-4.5 Mcg Inhaler] DULoxetine HCL [Cymbalta] 30 mg PO DAILY 06/26/23 06/26/23 History Diclofenac Sodium Gel [Voltaren 2 - 4 gm TOPICAL QID PRN 06/26/23 06/26/23 History Gel] Ergocalciferol [Vitamin D2 (1250 1,250 mcg PO Q7D 06/26/23 06/26/23 History Mcg = 71860 Iu)] HYDROcodone/APAP 7.5-325MG [[place] 1 - 1.5 tab PO Q6H PRN 06/26/23 06/26/23 History 7.5-325] LORazepam [Ativan] 0.5 mg PO Q8H 06/26/23 06/26/23 History Metoprolol Succinate (ER) [Toprol 100 mg PO DAILY 06/26/23 06/26/23 History Xl] Omeprazole 40 mg PO DAILY 06/26/23 06/26/23 History Potassium Chloride [Klor-Con M20] 20 meq PO DAILY 06/26/23 06/26/23 History Sennosides [Senokot] 8.6 mg PO DAILY 06/26/23 06/26/23 History polyethylene glycoL 3350 [Miralax] 17 gm PO BID 06/26/23 06/26/23 History Allergies Allergy/AdvReac Type Severity Reaction Status Date / Time Penicillins Allergy Swelling Verified 06/26/23 15:35 Physical Exam Vitals: Vital Signs Temp Pulse Pulse Resp BP BP Pulse Ox 06/27/23 11:58 100 06/27/23 07:24 97.9 F 119 H 20 142/90 96 06/27/23 02:00 98.3 F 99 134/84 90 L 06/26/23 20:00 98.2 F 92 19 161/102 99 06/26/23 15:26 97.9 F 79 21 145/85 96 06/26/23 15:00 64 18 134/86 95 06/26/23 14:25 89 18 152/98 97 Intake and Output 06/26/23 06/27/23 06/27/23 22:59 06:59 14:59 Intake Total 540 Output Total 350 280 Balance 190 -280 Intake: Oral 540 Output: Urine 350 280 Other: Voiding Method Indwelling Catheter Indwelling Catheter Weight 55.338 kg Results 06/27/23 06:24 06/27/23 06:24 Cardiac Enzymes 06/26/23 Range/Units 13:20 AST 24 (14-36) U/L Coagulation 06/26/23 Range/Units 13:20 PT 11.5 (9.0-12.0) sec APTT 26.9 (22.0-30.0) sec CBC 06/26/23 06/27/23 Range/Units 13:20 06:24 WBC 8.8 11.77 H (3.8-10.6) k/uL RBC 4.44 4.33 (3.80-5.40) m/uL Hgb 14.8 14.4 (11.4-16.0) gm/dL Hct 44.1 42.9 (34.0-46.0) % Plt Count 144 L 178 (150-450) k/uL Comprehensive Metabolic Panel 06/26/23 06/27/23 Range/Units 13:20 06:24 Sodium 139 140 (137-145) mmol/L Potassium 3.9 3.3 L (3.5-5.1) mmol/L Chloride 108 H 103 (98-107) mmol/L Carbon Dioxide 25 24.0 (22-30) mmol/L BUN 13 13.3 (7-17) mg/dL Creatinine 0.47 L 0.6 (0.52-1.04) mg/dL Glucose 120 H 118 H (74-99) mg/dL Calcium 8.7 9.4 (8.4-10.2) mg/dL AST 24 (14-36) U/L ALT 18 (4-34) U/L Alkaline Phosphatase 84 (38-126) U/L Total Protein 6.3 (6.3-8.2) g/dL Albumin 3.4 L (3.5-5.0) g/dL Current Medications Generic Name Dose Route Start Last Admin Trade Name Freq PRN Reason Stop Dose Admin Acetaminophen 650 mg 06/26/23 12:39 Acetaminophen Tab 325 Mg Tab PO Q6HR PRN Mild Pain or Fever > 100.5 Albuterol Sulfate 2 puff 06/26/23 16:42 Albuterol Hfa Inhaler INHALATION RT-Q6H PRN Shortness Of Breath Atorvastatin Calcium 80 mg 06/26/23 21:00 06/26/23 20:44 Atorvastatin 80 Mg Tab PO 80 mg HS BRYANT Administration Budesonide/Formoterol Fumarate 2 puff 06/26/23 20:00 06/27/23 08:11 Symbicort 160-4.5 Mcg Inhaler INHALATION 2 puff RT-BID BRYANT Administration Duloxetine HCl 30 mg 06/27/23 09:00 06/27/23 08:01 Duloxetine Hcl 30 Mg Capsule.Dr PO Not Given DAILY BRYANT Ergocalciferol 1,250 mcg 06/26/23 16:45 06/26/23 16:54 Ergocalciferol 1,250 Mcg (50,000 Iu) Capsule PO Not Given Q7D BRYANT Furosemide 20 mg 06/27/23 09:00 06/27/23 07:50 Furosemide 20 Mg Tab PO Not Given DAILY BRYANT Hydromorphone HCl 0.5 mg 06/26/23 12:39 Hydromorphone 0.5 Mg/0.5 Ml Syringe IVP Q3HR PRN Moderate Pain (Scale 4 to 6) Hydromorphone HCl 1 mg 06/26/23 12:39 06/27/23 12:14 Hydromorphone 1 Mg/Ml 1 Ml Syringe IVP 1 mg Q3HR PRN Administration Severe Pain (Scale 7 to 10) Potassium Chloride 10 meq/ IV 0 mls @ 100 mls/hr 06/27/23 12:24 Solution IVPB 06/27/23 12:25 ONCE STA Lorazepam 0.5 mg 06/26/23 16:45 06/27/23 08:01 Lorazepam 0.5 Mg Tab PO Not Given Q8H BRYANT Melatonin 5 mg 06/26/23 21:00 06/26/23 20:44 Melatonin 5 Mg Tablet PO 5 mg HS BRYANT Administration Metoprolol Succinate 100 mg 06/27/23 09:00 06/27/23 08:02 Metoprolol Succinate (Er) 100 Mg Tab.Er.24h PO Not Given DAILY BRYANT Naloxone HCl 0.2 mg 06/26/23 12:39 Naloxone 0.4 Mg/Ml 1 Ml Vial IV Q2M PRN Opioid Reversal Ondansetron HCl 4 mg 06/26/23 12:39 06/27/23 03:22 Ondansetron 4 Mg/2 Ml Vial IVP 4 mg Q8HR PRN Administration Nausea And Vomiting Pantoprazole Sodium 40 mg 06/27/23 09:00 06/27/23 07:49 Pantoprazole 40 Mg Tablet PO Not Given DAILY BRYANT Polyethylene Glycol 17 gm 06/26/23 21:00 06/27/23 07:49 Polyethylene Glycol 3350 17 Gm Powd.Pack PO Not Given BID BRYANT Potassium Chloride 20 meq 06/27/23 09:00 06/27/23 07:48 Potassium Chloride Er 20 Meq Tab.Er PO Not Given DAILY BRYANT Senna 8.6 mg 06/27/23 09:00 06/27/23 07:48 Sennosides 8.6 Mg Tab PO Not Given DAILY BRYANT Intake and Output 06/26/23 06/27/23 06/27/23 22:59 06:59 14:59 Intake Total 540 Output Total 350 280 Balance 190 -280 Intake: Oral 540 Output: Urine 350 280 Other: Voiding Method Indwelling Catheter Indwelling Catheter Weight 55.338 kg 06/27/23 06:24 06/27/23 06:24
[2023-06-27] MEDS: METOPROLOL TARTRATE 50 MG TAB PO SCH ×2 (12:36→20:06)
[2023-06-27] MEDS ORDERED: LACTATED RINGERS 1,000 ML IV ONE (12:46)
[2023-06-27] MEDS ORDERED: DEXAMETHASONE SOD PHOSPHATE 4 MG/ML 1 ML VIAL IVP ONE (12:54)
[2023-06-27] MEDS ORDERED: ONDANSETRON 4 MG/2 ML VIAL IVP ONE (12:54)
[2023-06-27] MEDS ORDERED: TRANEXAMIC 1,000 MG/100ML-NACL PREMIX BAG ONE (12:58)
[2023-06-27] MEDS ORDERED: PROPOFOL 10 MG/ML 20 ML VIAL IV ONE (12:58)
[2023-06-27] MEDS ORDERED: GLYCOPYRROLATE 0.2 MG/ML 2 ML VIAL ONE (12:58)
[2023-06-27] MEDS ORDERED: ceFAZolin 1,000 MG VIAL ONE (12:58)
[2023-06-27] MEDS ORDERED: ePHEDrine 50 MG/ML 1 ML VIAL ONE (12:58)
[2023-06-27] MEDS ORDERED: SODIUM CHLORIDE 0.9% 100 ML BAG ONE (12:58)
[2023-06-27] MEDS ORDERED: SUCCINYLCHOLINE CHLORIDE 200 MG/10 ML VIAL IV ONE (12:58)
[2023-06-27] MEDS ORDERED: LIDOCAINE 2% INJ 20 MG/ML (2 ML VIAL) ONE (12:58)
[2023-06-27] MEDS ORDERED: fentaNYL (PF) 50 MCG/ML 2 ML AMP ONE (12:58)
[2023-06-27] MEDS ORDERED: ESMOLOL 100 MG/10 ML VIAL ONE (12:58)
[2023-06-27] MEDS ORDERED: ROCURONIUM 10 MG/ML (5 ML VIAL) IV ONE (12:58)
[2023-06-27] MEDS ORDERED: PHENYLEPHRINE-0.9% NACL SYG 1,000 MCG/10 ML SYRINGE ONE (12:58)
[2023-06-27] MEDS ORDERED: NEOSTIGMINE 1 MG/ML 10 ML VIAL ONE (12:58)
[2023-06-27] MEDS ORDERED: TRANEXAMIC 1,000 MG/100ML-NACL 1,000 MG in SALINE 1 100ML.BAG IVPB ONE ×2 (13:03→13:04)
[2023-06-27] MEDS ORDERED: ONDANSETRON 4 MG/2 ML VIAL IVP PRN (13:18)
[2023-06-27] MEDS ORDERED: HYDROmorphone 0.5 MG/0.5 ML SYRINGE IVP PRN ×2 (13:18)
[2023-06-27] MEDS ORDERED: NALOXONE 0.4 MG/ML 1 ML VIAL IV PRN (13:18)
[2023-06-27] MEDS ORDERED: MAGNESIUM HYDROXIDE 2,400 MG/30 ML CUP PO PRN (13:18)
[2023-06-27] MEDS ORDERED: HYDROcodone/APAP 7.5-325MG 1 EACH TAB PO PRN (13:20)
[2023-06-27] MEDS ORDERED: ceFAZolin 1,000 MG in SODIUM CHLORIDE 0.9% 1,000 ML IRRIGATION ONE (14:06)
--- NOTE | 2023-06-27 14:46 | FL ---
Intraoperative/procedural fluoroscopic services were provided. Total fluoroscopy time is 78 seconds w ith a total of 2 submitted images to PACS. Please see the operative/procedural note for further detai ls. DAP: 2.7999 Gycm2
--- NOTE | 2023-06-27 15:33 | XR ---
EXAMINATION TYPE: XR Hip Limited RT DATE OF EXAM: 06/27/2023 3:03 PM INDICATION: Patient age:Female; 77 years old; Reason for study: Status post hip surgery, assess surgical alignment; PHH. COMPARISON: None. TECHNIQUE: The right hip was examined in the frontal and lateral projections and a AP pelvis. FINDINGS: Post fixation changes, hardware is intact, alignment is appropriate. No evidence of new fra cture. Postoperative changes of the soft tissues with subcutaneous gas. No evidence of any acute osse ous pathology or joint dislocation. IMPRESSION: Hip fixation is with hardware intact and in appropriate alignment. No new acute fracture.
[2023-06-27] MEDS: POTASSIUM CHLORIDE 10 MEQ in WATER FOR INJECTION 1 100ML.BAG IVPB SCH ×2 (15:35→15:36)
[2023-06-27] MEDS: SODIUM CHLORIDE 0.9% 1,000 ML IV SCH (15:41)
[2023-06-27] MEDS: HYDROmorphone 0.5 MG/0.5 ML SYRINGE IVP PRN (17:13)
[2023-06-27] MEDS: SENNOSIDES-DOCUSATE SODIUM 1 EACH TAB PO SCH (20:06)
[2023-06-27] MEDS: ATORVASTATIN 80 MG TAB PO SCH (20:06)
[2023-06-27] MEDS: HYDROcodone/APAP 7.5-325MG 1 EACH TAB PO PRN (20:07)
[2023-06-27] MEDS: MELATONIN 5 MG TABLET PO SCH (20:07)
--- NOTE | 2023-06-27 20:47 | P.PN ---
Subjective Progress Note Date: 06/27/23 77-year-old female who presents to the emergency department for a fall. Patient is a transfer from [facility], where she was evaluated earlier today after a fall. She had lost her balance last night, when she fell and landed on her right hip. EMS was called because she was unable to get back up. She was found to have a femur fracture, and was subsequently transferred here for intervention. Patient is on Eliquis for prior DVT. She is also on oxygen at home. Additionally, patient did break her back 10 months ago and is continuing to deal with pain from that as well. EKG interpreted by me demonstrating the following: Sinus rhythm. Ventricular rate 80 beats per minute, IL interval 134 ms, QRS duration 97 ms, QTC 432 ms. Hip x-ray reveals right intertrochanteric fracture Patient is admitted for further evaluation and treatment via orthopedic service Patient is evaluated by Orthopedic surgery and planning closed reduction and intramedullary nailing tomorrow cardiology evaluated-- The patient can proceed with the surgery beach she is at intermediate to high risk of perioperative cardiovascular complications given the limited functional capacity Restart the patient back on anticoagulation either orally or subcu using Lovenox as soon as possible and safe after the surgery giving the history of DVT Monitor the blood pressure and heart rate Objective - Vital Signs Vital signs: Vital Signs Temp 97.7 F 06/27/23 15:35 Pulse 81 06/27/23 17:20 Resp 17 06/27/23 15:20 BP 95/66 06/27/23 17:20 Pulse Ox 93 L 06/27/23 17:20 FiO2 Intake & Output 06/27/23 06/27/23 06/28/23 06:59 18:59 06:59 Intake Total 831 Output Total 280 275 Balance -280 556 Weight 55.338 kg Intake: IV 831 Output: Urine 280 200 Estimated Blood Loss 75 Other: Voiding Method Indwelling Catheter Indwelling Catheter # Bowel Movements 0 - Exam GENERAL: The patient is alert and oriented x3, not in any acute distress. Well developed, well nourished. HEENT: Pupils are round and equally reacting to light. EOMI. No scleral icterus. No conjunctival pallor. Normocephalic, atraumatic. No pharyngeal erythema. No thyromegaly. CARDIOVASCULAR: S1 and S2 present. No murmurs, rubs, or gallops. PULMONARY: Chest is clear to auscultation, no wheezing or crackles. ABDOMEN: Soft, nontender, nondistended, normoactive bowel sounds. No palpable organomegaly. MUSCULOSKELETAL: No joint swelling or deformity. EXTREMITIES: No cyanosis, clubbing, or pedal edema. NEUROLOGICAL: Gross neurological examination did not reveal any focal deficits. SKIN: No rashes. - Labs CBC & Chem 7: 06/27/23 06:24 06/27/23 06:24 Labs: Abnormal Lab Results - Last 24 Hours (Table) 06/27/23 06/27/23 Range/Units 06:24 06:24 WBC 11.77 H (4.50-10.00) X 10*3/uL MCV 99.1 H (80.0-97.0) FL MCH 33.3 H (27.0-32.0) pg Monocytes # 1.35 H (0.20-1.00) X 10*3/uL Potassium 3.3 L (3.5-5.5) mmol/L Anion Gap 13.00 H (4.00-12.00) mmol/L BUN/Creatinine Ratio 22.17 H (12.00-20.00) Ratio Glucose 118 H (70-110) mg/dL Assessment and Plan Assessment: 1. Fall/right hip fracture - Hip x-ray completed at [facility] reveals right intertrochanteric fracture - Patient is currently on L Graham which is requested to be placed on hold and patient be made nothing by mouth - Cardiology is consulted for cardiac clearance 2. History of right lower extremity DVT; patient takes glucose 5 mg twice a day; hold for hip surgery 3. Hyperlipidemia; Lipitor 80 mg by mouth daily at bedtime 4. Hypertension; metoprolol 100 mg daily 5. COPD; not in exacerbation; continue with home inhaler therapy 6. Anxiety/depression; continue home dose of Cymbalta and Ativan DVT prophylaxis; SCDs only given pending surgical procedure CODE STATUS; full code
--- NOTE | 2023-06-27 21:50 | OP ---
OPERATIVE REPORT DATE OF SERVICE : 06/27/2023 PREOPERATIVE DIAGNOSIS: Right intertrochanteric hip fracture. POSTOPERATIVE DIAGNOSIS: Right intertrochanteric hip fracture. PROCEDURE PERFORMED: Right intramedullary hip screw fixation for right intertrochanteric hip fracture. ANESTHESIA: General endotracheal. ESTIMATED BLOOD LOSS: 75 mL. TOURNIQUET: None. DRAINS: None. COMPLICATIONS: None apparent. DISPOSITION: Postanesthesia care unit. INDICATIONS FOR PROCEDURE: Nuzhat is a very pleasant 77-year-old female from [place], who slipped and fell injuring her right hip. She initially presented to [facility]. She was found to have intertrochanteric hip fracture. She was then transferred to [facility] for care. She does have underlying medical history, where she was on supplemental oxygen as well. She was admitted to the medical service and then we were consulted. She was in a household ambulator. Recommendation was for intramedullary hip screw fixation for her displaced intertrochanteric hip fracture. Risks of procedure were discussed with her family and her in detail. These risks include but not limited to risk of infection, nerve damage, bleeding, pain, and a small risk of deep vein thrombosis which could lead to fatal pulmonary embolism. Further risks include failure of the fracture to heal, failure of the hardware and deep infection. All of her and her family's questions were answered to their satisfaction. Appropriate informed consent was obtained. DESCRIPTION OF PROCEDURE: The patient was identified in preoperative holding area. Surgical site was marked by both patient and myself. She was given 2 g of Ancef IV for prophylactic purposes. She was then transported to the operative suite. She was placed supine on the operating table. A general anesthetic was then administered, dosed per the anesthesia without apparent complication. She was then transferred to the [place] fracture table. She was then placed onto this table well-padded in preparation for surgery. The fracture was then reduced with traction and rotation. Fluoroscopy was utilized to confirm the fracture reduction. The patient's right lower extremity was then prepped and draped in usual sterile fashion. Standard surgical pause was undertaken to ensure that we were operating the correct site and that appropriate preoperative antibiotics have been given. All staff in the room were in agreement and we proceeded. The tip of the greater trochanter was identified utilizing fluoroscopy. An approximate 3 cm incisions extending from the tip of the greater trochanter proximally in line with the shaft of the femur was then made with a 10-blade scalpel. Dissection was carried down sharply to the tensor fascia. The tensor fascia was then incised in line with the incision. This gave me excellent access to the tip of the greater trochanter. The curved awl was then placed on the medial aspect of the tip of the greater trochanter. The threaded guide pin was then advanced from the medial aspect of the tip of the greater trochanter down the shaft of the femur. Again, its placement was confirmed with fluoroscopic imaging. The starting reamer was then utilized to gain access to the proximal femur. The threaded guidepin was then over-reamed proximally to gain access to the proximal femur. The threaded guide pin was removed and the ball-tipped guidewire was then placed down the shaft of the femur. Again, its placement was confirmed with fluoroscopic imaging. I then proceeded to ream the proximal femur. I started with a 9 mm reamer and incrementally increased up until 13 mm reamer. This provided for acceptance of the gamma nail. I then had the [place] open an 11 mm x 180 mm x 125 degree gamma nail. This was placed onto the jig on the back table. This was then inserted over the ball- tipped guidewire. The ball-tipped guidewire was then removed. We then proceeded with placement of the hip screw. A second small stab incision was made on the lateral thigh. The threaded guide pin was then advanced through the nail into the center of the femoral head on both AP and lateral views. The tip-apex distance was appropriate. We then measured for length. The reamer was set to 95 mm. The threaded guide pin was then over reamed to 95 mm. Again, this was done utilizing fluoroscopic imaging. I then had the [place] open a 10 mm x 95 mm partially-threaded hip screw. This was then inserted over the threaded guide pin. This was then placed deep into the center of the femoral head. There was excellent purchase with the screw. When it was fully seated, the tip-apex distance was appropriate. I then placed a set screw. This was tightened down fully and then backed off one-quarter turn to allow for compression at the fracture site. I then proceeded with placement of the distal locking screw. A third small stab incision was then made over the lateral thigh. A 5 mm x 32.5 mm screw was placed through the static aspect of the distal locking hole. Again, proper placement was confirmed with fluoroscopic imaging. At this point, no further work was deemed necessary. The final images were taken. The hip screw was placed deep into the center of femoral head on both AP and lateral views. The tip-apex distance was appropriate. The gamma nail was intramedullary and the distal locking screw was through the nail and was of appropriate length. The jig was removed. The wounds were then thoroughly irrigated with sterile saline solution with antibiotic added. The tensor fascia was closed with 0 Vicryl interrupted suture. Subcutaneous tissue was closed with 2-0 Vicryl interrupted suture and the skin was closed with stainless steel ly. Sterile compressive dressing was then applied. All sponge and needle counts were deemed correct prior to closure. The patient tolerated the procedure without apparent complication. She was transferred to recovery room in stable condition. ERNESTO / ALANN: [id number] /
[2023-06-28] MEDS: LORazepam 0.5 MG TAB PO SCH ×3 (02:58→17:44)
[2023-06-28] MEDS: HYDROcodone/APAP 7.5-325MG 1 EACH TAB PO PRN ×2 (03:10→17:44)
[2023-06-28] MEDS: SODIUM CHLORIDE 0.9% 1,000 ML IV SCH (05:42)
[2023-06-28] MEDS: FUROSEMIDE 20 MG TAB PO SCH (08:15)
[2023-06-28] MEDS: SENNOSIDES 8.6 MG TAB PO SCH (08:15)
[2023-06-28] MEDS: polyethylene glycoL 3350 17 GM POWD.PACK PO SCH ×2 (08:15→20:41)
[2023-06-28] MEDS: APIXABAN 5 MG TAB PO SCH ×2 (08:15→20:42)
[2023-06-28] MEDS: PANTOPRAZOLE 40 MG TABLET PO SCH (08:16)
[2023-06-28] MEDS: DULoxetine HCL 30 MG CAPSULE.DR PO SCH (08:16)
[2023-06-28] MEDS: METOPROLOL TARTRATE 50 MG TAB PO SCH ×2 (08:16→20:42)
[2023-06-28] MEDS: POTASSIUM CHLORIDE ER 20 MEQ TAB.ER PO SCH (08:16)
[2023-06-28] MEDS: HYDROmorphone 0.5 MG/0.5 ML SYRINGE IVP PRN ×3 (08:17→23:51)
--- NOTE | 2023-06-28 09:31 | P.PN ---
Subjective Progress Note Date: 06/28/23 The patient is a 77-year-old female patient with a past medical history significant for hypertension and dyslipidemia and history of low back surgery as well as hypoxic respiratory failure on oxygen at home for unknown reason the patient was unable to tell me nor her family. The patient was brought from [facility] after she fell and fractured her hip. She was diagnosed with a right femur fracture. The patient fell with no change in mental status and no presyncope or syncope.Symptoms of chest pain or chest discomfort beach she does have shortness of breath with exertion appeared to be chronic and unchanged compared to before. She was functional to about 6 months ago when she had low back surgery and since then she has not been very functional. Before that she was quite functional and able to do or go to flights of stairs without being symptomatic. No history of coronary artery disease or congestive heart failure or cardiac arrhythmia. The workup during this admission including EKG showing sinus mechanism with PVCs. The rest of the blood work came in to be unremarkable. No recent echocardiogram was performed. She does have history of DVT and currently she is on oral anticoagulation. 06/28 Patient is seen today in follow-up. Yesterday she underwent a right IM screw. She is scheduled to resume eliquis this morning. Patient seems somewhat confused this morning. She does state she is normal but better now than she did when she first got up this morning. Blood pressure 125/80, heart rate in the 80s and 90s. The examination is remarkable for stable vital signs with regular rhythm and systolic murmur at the right and left upper sternal border with clear breathing sounds bilaterally and no lower extremity is edema noted Assessment Status post fall and right hip fracture History of DVT was on oral anticoagulation Hypertension Dyslipidemia Plan Patient is scheduled to resume eliquis this morning for DVT Cardiology will sign off this case and follow on an as-needed basis. Please reconsult for any new concerns. Nurse practitioner note has been reviewed, I agree with the documented findings and plan of care. Patient was seen and examined. Objective - Vital Signs Vital signs: Vital Signs Temp 97.9 F 06/28/23 07:41 Pulse 94 06/28/23 07:41 Resp 17 06/28/23 07:41 BP 125/80 06/28/23 07:41 Pulse Ox 90 L 06/28/23 07:41 FiO2 Intake & Output 06/27/23 06/28/23 06/28/23 18:59 06:59 18:59 Intake Total 831 Output Total 275 200 Balance 556 -200 Weight 55.338 kg Intake: IV 831 Output: Urine 200 200 Estimated Blood Loss 75 Other: Voiding Method Indwelling Catheter Indwelling Catheter # Bowel Movements 0 - Labs CBC & Chem 7: 06/27/23 06:24 06/27/23 06:24 Labs: Abnormal Lab Results - Last 24 Hours (Table) 06/27/23 06/27/23 Range/Units 06:24 06:24 WBC 11.77 H (4.50-10.00) X 10*3/uL MCV 99.1 H (80.0-97.0) FL MCH 33.3 H (27.0-32.0) pg Monocytes # 1.35 H (0.20-1.00) X 10*3/uL Potassium 3.3 L (3.5-5.5) mmol/L Anion Gap 13.00 H (4.00-12.00) mmol/L BUN/Creatinine Ratio 22.17 H (12.00-20.00) Ratio Glucose 118 H (70-110) mg/dL
[2023-06-28] MEDS: SYMBICORT 160-4.5 MCG INHALER INHALATION SCH ×2 (10:02→20:33)
--- NOTE | 2023-06-28 10:48 | P.PN ---
Subjective Progress Note Date: 06/28/23 This is a 77-year-old female who is status post right intramedullary hip screw fixation. This is postoperative day #1 and patient is seen and evaluated at bedside today. Patient states that her pain is well-controlled. Patient states that she has not worked with physical therapy yet today. Objective - Vital Signs Vital signs: Vital Signs Temp 97.9 F 06/28/23 07:41 Pulse 94 06/28/23 07:41 Resp 17 06/28/23 07:41 BP 125/80 06/28/23 07:41 Pulse Ox 95 06/28/23 10:05 FiO2 Intake & Output 06/27/23 06/28/23 06/28/23 18:59 06:59 18:59 Intake Total 831 Output Total 275 200 Balance 556 -200 Weight 55.338 kg Intake: IV 831 Output: Urine 200 200 Estimated Blood Loss 75 Other: Voiding Method Indwelling Catheter Indwelling Catheter # Bowel Movements 0 - Exam Vital signs are stable. Patient is in no acute distress and is alert and oriented 3. Calf is soft and nontender to palpation. Dressing is clean, dry, and intact. Patient has full foot and ankle motion without pain or difficulty. Sensation intact. Neurovascular status and circulatory status are intact. - Labs CBC & Chem 7: 06/27/23 06:24 06/27/23 06:24 Assessment and Plan (1) Fall Current Visit: Yes Status: Acute Code(s): W19.XXXA - UNSPECIFIED FALL, INITIAL ENCOUNTER SNOMED Code(s): 7098439 (2) Fracture, intertrochanteric, right femur Current Visit: Yes Status: Acute Code(s): S72.141A - DISPLACED INTERTROCHANTERIC FRACTURE OF RIGHT FEMUR, INIT SNOMED Code(s): 946064506 Plan: Continue routine postop care and pain control. Continue anticoagulation. Patient has resumed Eliquis. Touchdown weightbearing with a walker. Daily dressing changes. Appreciate input from medicine. Anticipate discharge to [facility] in the next 24-48 hours.
[2023-06-28 11:49] LABS: Basophils # (A) 0.01 X 10*3/uL (0.00-0.10); Basophils % (A) 0.1 %; Eosinophils # (A) 0 X 10*3/uL (0.04-0.35); Eosinophils % (A) 0 %; HCT 32.3 % (37.2-46.3); Lymphocytes % (A) 17.2 %; MCHC 34.1 d/dL (32.0-37.0); Mean Platelet Volume 10.7 FL (9.5-12.2); Monocytes # (A) 1.21 X 10*3/uL (0.20-1.00); Monocytes % (A) 10.4 %; NRBC Per 100 WBC 0 X 10*3/uL (0.00-0.01); Neutrophils # (A) 8.34 X 10*3/uL (1.80-7.70); Neutrophils % (A) 71.9 %; Platelet Count 151 X 10*3/uL (140-440); RBC 3.33 X 10*6/uL (4.10-5.20); RDW 14.1 % (11.5-14.5); WBC 11.61 X 10*3/uL (4.50-10.00)
[2023-06-28 12:49] LABS: African American GFR (CKD) >90 (>60 ml/min/1.73 sqM); Anion Gap 6 mmol/L; Blood Urea Nitrogen 24 mg/dL (7-17); Calcium 8.4 mg/dL (8.4-10.2); Carbon Dioxide 24 mmol/L (22-30); Chloride 105 mmol/L (98-107); Glucose 117 mg/dL (74-99); Non-African American GFR(CKD) >90 (>60 ml/min/1.73 sqM); Sodium 135 mmol/L (137-145)
--- NOTE | 2023-06-28 15:22 | P.PN ---
Subjective Progress Note Date: 06/28/23 Patient is evaluated resting in bed. She reports significant pain to the right leg surgical site, she is postoperative day #1 right IM hip screw fixation for the right intratrochanteric hip fracture. Patient seems reluctant to get up out of bed due to pain and did work with PT today with recommendations for subacute rehab. Patient does wear oxygen at home as needed and remains on 2 L of nasal cannula. She has no acute complaints at this time. Passing gas. Does need encouragement to use the spirometer. Review of Systems Constitutional: Denied any fatigue denied any fever. Cardio vascular: denied any chest pain, palpitations Gastrointestinal: denied any nausea, vomiting, diarrhea Pulmonary: Denied any shortness of breath cough Neurologic: Reports weakness. All inpatient medications were reviewed and appropriate changes in these medications as dictated in the interval history and assessment and plan. PHYSICAL EXAMINATION: GENERAL: The patient is alert and oriented x3, not in any acute distress. Well developed, well nourished. HEENT: Pupils are round and equally reacting to light. EOMI. No scleral icterus. No conjunctival pallor. Normocephalic, atraumatic. No pharyngeal erythema. No thyromegaly. CARDIOVASCULAR: S1 and S2 present. No murmurs, rubs, or gallops. PULMONARY: Chest is clear to auscultation, no wheezing or crackles. ABDOMEN: Soft, nontender, nondistended, normoactive bowel sounds. No palpable organomegaly. MUSCULOSKELETAL: No joint swelling or deformity. EXTREMITIES: No cyanosis, clubbing, or pedal edema. +2 pedal pulses bilaterally NEUROLOGICAL: Gross neurological examination did not reveal any focal deficits. Post surgical right hip dressing intact. SKIN: No rashes. Assessment Fall with right hip fracture status post IM hip screw fixation History right lower extremity DVT anticoagulation with eliquis which has been resumed postsurgically Hypertension Hyperlipidemia COPD with no acute exacerbation and chronic hypoxic respiratory failure on home oxygen History of anxiety/depression Dvt prophylaxis anticoagulated with eliquis Gi prophylaxis full code plan continue with supportive care and pain management, bowel regimen in place patient is recommended for discharge to subacute rehab per pt notes and discharge likely next 24-48 hours medically patient is stable Thank you for this consultation we will continue to follow along this hospital [facility] julia The impression and plan of care has been dictated by Terese Andres, Nurse Practitioner as directed. Dr. Keisha MD I have performed a history and physical examination and medical decision making of this patient, discussed the same with the dictator, and agree with the dictators assessment and plan as written, documented as a scribe. Based on total visit time, I have performed more than 50% of this visit. Objective - Vital Signs Vital signs: Vital Signs Temp 97.9 F 06/28/23 07:41 Pulse 94 06/28/23 07:41 Resp 17 06/28/23 07:41 BP 125/80 06/28/23 07:41 Pulse Ox 95 06/28/23 10:05 FiO2 Intake & Output 06/27/23 06/28/23 06/28/23 18:59 06:59 18:59 Intake Total 831 Output Total 275 200 Balance 556 -200 Weight 55.338 kg Intake: IV 831 Output: Urine 200 200 Estimated Blood Loss 75 Other: Voiding Method Indwelling Catheter Indwelling Catheter # Bowel Movements 0 - Labs CBC & Chem 7: 06/28/23 06:50 06/28/23 10:29 Labs: Abnormal Lab Results - Last 24 Hours (Table) 06/27/23 Range/Units 06:24 WBC 11.77 H (4.50-10.00) X 10*3/uL MCV 99.1 H (80.0-97.0) FL MCH 33.3 H (27.0-32.0) pg Monocytes # 1.35 H (0.20-1.00) X 10*3/uL Assessment and Plan Time with Patient: Less than 30
[2023-06-28] MEDS: ONDANSETRON 4 MG/2 ML VIAL IVP PRN (20:41)
[2023-06-28] MEDS: ATORVASTATIN 80 MG TAB PO SCH (20:42)
[2023-06-28] MEDS: MELATONIN 5 MG TABLET PO SCH (20:42)
[2023-06-28] MEDS ORDERED: HALOPERIDOL LACTATE 5 MG/ML 1 ML VIAL IM PRN (21:39)
[2023-06-29] MEDS: LORazepam 0.5 MG TAB PO SCH ×3 (00:03→17:29)
[2023-06-29] MEDS: SODIUM CHLORIDE 0.9% 1,000 ML IV SCH (03:21)
[2023-06-29] MEDS: ONDANSETRON 4 MG/2 ML VIAL IVP PRN (04:24)
[2023-06-29] MEDS: HYDROmorphone 0.5 MG/0.5 ML SYRINGE IVP PRN ×2 (04:24→08:19)
[2023-06-29] MEDS: SYMBICORT 160-4.5 MCG INHALER INHALATION SCH ×2 (08:16→20:52)
[2023-06-29] MEDS: POTASSIUM CHLORIDE ER 20 MEQ TAB.ER PO SCH (08:21)
[2023-06-29] MEDS: FUROSEMIDE 20 MG TAB PO SCH (08:21)
[2023-06-29] MEDS: PANTOPRAZOLE 40 MG TABLET PO SCH (08:21)
[2023-06-29] MEDS: SENNOSIDES 8.6 MG TAB PO SCH (08:21)
[2023-06-29] MEDS: DULoxetine HCL 30 MG CAPSULE.DR PO SCH (08:21)
[2023-06-29] MEDS: polyethylene glycoL 3350 17 GM POWD.PACK PO SCH ×2 (08:21→20:14)
[2023-06-29] MEDS: METOPROLOL TARTRATE 50 MG TAB PO SCH ×3 (08:21→21:37)
[2023-06-29] MEDS: APIXABAN 5 MG TAB PO SCH ×3 (08:22→21:36)
--- NOTE | 2023-06-29 11:33 | P.PN ---
Subjective Progress Note Date: 06/29/23 Principal diagnosis: Right IT fracture Patient is seen at bedside this morning. She is postop day #2 from gamma nail for right IT hip fracture. She has pain at the surgical site as expected but denies any new complaints. She denies numbness, tingling or calf pain. Review of systems is negative for fever, chills, chest pain, shortness of breath or other Objective - Vital Signs Vital signs: Vital Signs Temp 99.3 F 06/29/23 07:06 Pulse 108 H 06/29/23 07:06 Resp 20 06/29/23 07:06 BP 132/80 06/29/23 07:06 Pulse Ox 98 06/29/23 07:06 FiO2 Intake & Output 06/28/23 06/29/23 06/29/23 18:59 06:59 18:59 Output Total 600 320 Balance -600 -320 Weight 55.338 kg Output: Urine 600 320 Other: Voiding Method Indwelling Catheter # Voids 2 - Exam Inspection reveals a benign surgical wound. There is no active bleeding or drainage. Neurovascular status is intact throughout the lower extremity with motor and sensation fully intact. Calf is soft and nontender. 2+ dorsalis pedis pulse and less than 2 second cap refill is present. - Constitutional General appearance: Present: no acute distress - Labs CBC & Chem 7: 06/28/23 06:50 06/28/23 10:29 Labs: Abnormal Lab Results - Last 24 Hours (Table) 06/28/23 06/28/23 Range/Units 06:50 10:29 WBC 11.61 H (4.50-10.00) X 10*3/uL RBC 3.33 L (4.10-5.20) X 10*6/uL Hgb 11.0 L (12.0-15.0) d/dL Hct 32.3 L (37.2-46.3) % MCH 33.0 H (27.0-32.0) pg Neutrophils # 8.34 H (1.80-7.70) X 10*3/uL Monocytes # 1.21 H (0.20-1.00) X 10*3/uL Eosinophils # 0 L (0.04-0.35) X 10*3/uL Sodium 135 L (137-145) mmol/L BUN 24 H (7-17) mg/dL Glucose 117 H (74-99) mg/dL Assessment and Plan (1) Fracture, intertrochanteric, right femur Narrative/Plan: She will continue with routine postop orthopedic protocol including pain management, wound care, PT, DVT prophylaxis and medical management. Expect that she will transfer to [facility] in next 1-2 days Current Visit: Yes Status: Acute Priority: Medium Code(s): S72.141A - DISPLACED INTERTROCHANTERIC FRACTURE OF RIGHT FEMUR, INIT SNOMED Code(s): 634888520 Time with Patient: Less than 30
[2023-06-29] MEDS: QUEtiapine 25 MG TAB PO SCH ×3 (12:54→21:37)
[2023-06-29] MEDS: ATORVASTATIN 80 MG TAB PO SCH ×2 (20:13→21:36)
[2023-06-29] MEDS: SENNOSIDES-DOCUSATE SODIUM 1 EACH TAB PO SCH ×2 (20:13→21:37)
[2023-06-29] MEDS: MELATONIN 5 MG TABLET PO SCH ×2 (20:14→21:36)
--- NOTE | 2023-06-29 21:04 | P.PN ---
Subjective Progress Note Date: 06/29/23 Patient is evaluated resting in bed. She reports significant pain to the right leg surgical site, she is postoperative day #1 right IM hip screw fixation for the right intratrochanteric hip fracture. Patient seems reluctant to get up out of bed due to pain and did work with PT today with recommendations for subacute rehab. Patient does wear oxygen at home as needed and remains on 2 L of nasal cannula. She has no acute complaints at this time. Passing gas. Does need encouragement to use the spirometer. 06/29/2023 Patient is evaluated today sitting in bed. Patient has been confused and agitated with staff and family. Alert x 1 and thinks she is at home. Patient is postoperative day #2 right IM hip screw fixation. Patient continues to report pain to the right hip. Did work some with physical therapy and IDC has been removed today patient is able to stand and pivot to the bedside commode. Patient will require likely subacute rehab on discharge. Seroquel has been added for the acute agitation. Pulse oximeter decreasing and will order a chest xray. Patient needs encouragement to use the incentive spirometer. Review of Systems Constitutional: Denied any fatigue denied any fever. Cardio vascular: denied any chest pain, palpitations Gastrointestinal: denied any nausea, vomiting, diarrhea Pulmonary: Denied any shortness of breath cough Neurologic: Reports weakness. All inpatient medications were reviewed and appropriate changes in these medications as dictated in the interval history and assessment and plan. PHYSICAL EXAMINATION: GENERAL: The patient is alert and oriented x3, not in any acute distress. Well developed, well nourished. HEENT: Pupils are round and equally reacting to light. EOMI. No scleral icterus. No conjunctival pallor. Normocephalic, atraumatic. No pharyngeal erythema. No thyromegaly. CARDIOVASCULAR: S1 and S2 present. No murmurs, rubs, or gallops. PULMONARY: Chest is clear to auscultation, no wheezing or crackles. ABDOMEN: Soft, nontender, nondistended, normoactive bowel sounds. No palpable organomegaly. MUSCULOSKELETAL: No joint swelling or deformity. EXTREMITIES: No cyanosis, clubbing, or pedal edema. +2 pedal pulses bilaterally NEUROLOGICAL: Gross neurological examination did not reveal any focal deficits. Post surgical right hip dressing intact. SKIN: No rashes. Assessment Fall with right hip fracture status post IM hip screw fixation History right lower extremity DVT anticoagulation with eliquis which has been resumed postsurgically Hypertension Hyperlipidemia COPD with no acute exacerbation and chronic hypoxic respiratory failure on home oxygen History of anxiety/depression Dvt prophylaxis anticoagulated with eliquis Gi prophylaxis full code plan continue with supportive care and pain management, bowel regimen in place patient is recommended for discharge to subacute rehab per pt notes and discharge likely next 24-48 hours medically patient is stable PT/OT recommending subacute rehab Recommending to avoid the use of narcotics if possible and seroquel has been added for the agitation and confusion. AM chest xray ordered The impression and plan of care has been dictated by Terese Andres Nurse Practitioner as directed. Dr. Keisha MD I have performed a history and physical examination and medical decision making of this patient, discussed the same with the dictator, and agree with the dictators assessment and plan as written, documented as a scribe. Based on total visit time, I have performed more than 50% of this visit. Objective - Vital Signs Vital signs: Vital Signs Temp 98.0 F 06/29/23 14:23 Pulse 115 H 06/29/23 14:23 Resp 18 06/29/23 14:23 BP 146/81 06/29/23 14:23 Pulse Ox 91 L 06/29/23 14:23 FiO2 Intake & Output 06/28/23 06/29/23 06/29/23 18:59 06:59 18:59 Output Total 600 320 400 Balance -600 -320 -400 Weight 55.338 kg Output: Urine 600 320 400 Other: Voiding Method Indwelling Catheter # Voids 2 - Labs CBC & Chem 7: 06/28/23 06:50 06/28/23 10:29 Assessment and Plan Time with Patient: Less than 30
--- NOTE | 2023-06-29 22:45 | XR ---
EXAM: XR Chest, 2 Views CLINICAL HISTORY: ITS.REASON XR Reason: hypoxia TECHNIQUE: Frontal and lateral views of the chest. COMPARISON: No relevant prior studies available. FINDINGS: Lungs: See below. Pleural space: Unremarkable. No pneumothorax. Heart: Cardiomegaly with central pulmonary vascular congestion and diffuse interstitial infiltrates. Mediastinum: Unremarkable. Bones/joints: Unremarkable. IMPRESSION: Mild CHF
[2023-06-30] MEDS: LORazepam 0.5 MG TAB PO SCH ×4 (01:08→08:11)
[2023-06-30] MEDS: FUROSEMIDE 20 MG TAB PO SCH (08:10)
[2023-06-30] MEDS: SENNOSIDES 8.6 MG TAB PO SCH (08:10)
[2023-06-30] MEDS: METOPROLOL TARTRATE 50 MG TAB PO SCH ×2 (08:11→21:00)
[2023-06-30] MEDS: APIXABAN 5 MG TAB PO SCH ×2 (08:11→21:00)
[2023-06-30] MEDS: QUEtiapine 25 MG TAB PO SCH (08:11)
[2023-06-30] MEDS: POTASSIUM CHLORIDE ER 20 MEQ TAB.ER PO SCH ×2 (08:12→12:43)
[2023-06-30] MEDS: DULoxetine HCL 30 MG CAPSULE.DR PO SCH ×2 (08:12→11:14)
[2023-06-30] MEDS: PANTOPRAZOLE 40 MG TABLET PO SCH ×2 (08:12→08:25)
[2023-06-30] MEDS: SYMBICORT 160-4.5 MCG INHALER INHALATION SCH ×2 (08:22→21:23)
[2023-06-30] MEDS: polyethylene glycoL 3350 17 GM POWD.PACK PO SCH ×2 (08:25→21:14)
[2023-06-30] MEDS: FUROSEMIDE 10 MG/ML 2 ML VIAL IV SCH ×2 (11:30→21:12)
[2023-06-30 12:14] LABS: Basophils # (A) 0.02 X 10*3/uL (0.00-0.10); Basophils % (A) 0.1 %; Eosinophils # (A) 0 X 10*3/uL (0.04-0.35); Eosinophils % (A) 0 %; HCT 31.9 % (37.2-46.3); Lymphocytes # (A) 1.22 X 10*3/uL (0.90-5.00); Lymphocytes % (A) 8.9 %; MCH 33.5 pg (27.0-32.0); MCHC 34.5 d/dL (32.0-37.0); MCV 97.3 FL (80.0-97.0); Mean Platelet Volume 10.6 FL (9.5-12.2); Monocytes # (A) 0.65 X 10*3/uL (0.20-1.00); Monocytes % (A) 4.7 %; NRBC Per 100 WBC 0 X 10*3/uL (0.00-0.01); Neutrophils % (A) 85.6 %; Platelet Count 202 X 10*3/uL (140-440); RBC 3.28 X 10*6/uL (4.10-5.20); RBC Morphology Normal (Normal); RDW 14.5 % (11.5-14.5); WBC 13.78 X 10*3/uL (4.50-10.00)
[2023-06-30 12:43] LABS: African American GFR (CKD) >90 (>60 ml/min/1.73 sqM); Anion Gap 16 mmol/L; Blood Urea Nitrogen 10 mg/dL (7-17); Calcium 8.4 mg/dL (8.4-10.2); Carbon Dioxide 18 mmol/L (22-30); Chloride 101 mmol/L (98-107); Glucose 124 mg/dL (74-99); Magnesium 1.9 mg/dL (1.6-2.3); Non-African American GFR(CKD) >90 (>60 ml/min/1.73 sqM); Potassium 2.8 mmol/L (3.5-5.1); Sodium 135 mmol/L (137-145)
[2023-06-30 13:24] LABS: Appearance,Urine Clear (Clear); Bilirubin,Urine Negative (Negative); Blood,Urine Negative (Negative); Color,Urine Light Yellow; Glucose,Urine (UA) Negative (Negative); Ketones,Urine 2+ (Negative); Leukocyte Esterase,Urine Negative (Negative); Nitrite,Urine Negative (Negative); Protein,Urine Negative (Negative); Specific Gravity,Urine 1.008 (1.001-1.035); Urobilinogen,Urine <2.0 mg/dL (<2.0)
[2023-06-30] MEDS ORDERED: DILTIAZEM DRIP BOLUS FROM BAG 1 MG SOLN IV ONE (14:45)
[2023-06-30] MEDS ORDERED: DILTIAZEM 125 MG in SODIUM CHLORIDE 0.9% 100 ML IV SCH (14:45)
[2023-06-30] MEDS ORDERED: Potassium Replacement Protocol 1 EACH MISC MISCELLANE PRN (14:50)
--- NOTE | 2023-06-30 14:56 | P.PN ---
Subjective Progress Note Date: 06/30/23 Patient is evaluated resting in bed. She reports significant pain to the right leg surgical site, she is postoperative day #1 right IM hip screw fixation for the right intratrochanteric hip fracture. Patient seems reluctant to get up out of bed due to pain and did work with PT today with recommendations for subacute rehab. Patient does wear oxygen at home as needed and remains on 2 L of nasal cannula. She has no acute complaints at this time. Passing gas. Does need encouragement to use the spirometer. 06/29/2023 Patient is evaluated today sitting in bed. Patient has been confused and agitated with staff and family. Alert x 1 and thinks she is at home. Patient is postoperative day #2 right IM hip screw fixation. Patient continues to report pain to the right hip. Did work some with physical therapy and IDC has been removed today patient is able to stand and pivot to the bedside commode. Patient will require likely subacute rehab on discharge. Seroquel has been added for the acute agitation. Pulse oximeter decreasing and will order a chest xray. Patient needs encouragement to use the incentive spirometer. 06/30/2023 She is evaluated today resting in bed. Patient is having issues with swallowing and has been evaluated by speech therapy who felt this was an esophageal stage dysfunction and may be some reflux. Patient will undergo esophagram and if warranted Gen. surgery can perform an EGD. Unfortunately there is not a GI specialist available inpatient this week or next week. Patient was referred to GI outpatient for follow-up and has had this issue ongoing over the last 3 months she has not been able to f/u with GI outpatient as of yet. Patient remained agitated overnight today she is more sedated. Will cut back to night time only seroquel. Patient was unable to take her a.m. medications due to the regurgitation and went into atrial fibrillation with rapid RVR with heart rate up into the 120s which was confirmed by EKG. Patient is anticoagulated with eliquis due to history of DVT. We will recommend starting patient on IV Cardizem bolus and drip and transferred to 3 S. Cardiology is on consult and echocardiogram has been ordered. Review of Systems Constitutional: Denied any fatigue denied any fever. Cardio vascular: denied any chest pain, palpitations Gastrointestinal: Having difficulty swallowing with regurgitation, denies any abdominal pain no diarrhea no nausea. Pulmonary: Denied any shortness of breath cough Neurologic: Reports weakness. All inpatient medications were reviewed and appropriate changes in these medications as dictated in the interval history and assessment and plan. PHYSICAL EXAMINATION: GENERAL: The patient is alert and oriented 1, not in any acute distress. Well developed, well nourished. Lethargic HEENT: Pupils are round and equally reacting to light. EOMI. No scleral icterus. No conjunctival pallor. Normocephalic, atraumatic. No pharyngeal erythema. No thyromegaly. CARDIOVASCULAR: S1 and S2 present. No murmurs, rubs, or gallops. PULMONARY: Chest is clear to auscultation, no wheezing or crackles. ABDOMEN: Soft, nontender, nondistended, normoactive bowel sounds. No palpable organomegaly. MUSCULOSKELETAL: No joint swelling or deformity. EXTREMITIES: No cyanosis, clubbing, or pedal edema. +2 pedal pulses bilaterally NEUROLOGICAL: Gross neurological examination did not reveal any focal deficits. Post surgical right hip dressing intact. SKIN: No rashes. Assessment Fall with right hip fracture status post IM hip screw fixation New-onset atrial fibrillation with RVR Acute heart failure elevated proBNP unknown EF patient will be given IV Lasix Acute on chronic dysphagia and esophageal dysfunction History right lower extremity DVT anticoagulation with eliquis which has been resumed postsurgically Hypertension Hyperlipidemia COPD with no acute exacerbation and chronic hypoxic respiratory failure on home oxygen History of anxiety/depression Dvt prophylaxis anticoagulated with eliquis Gi prophylaxis full code Plan Patient will be started on IV Cardizem and transferred to 3 S. cardiology consultation, echocardiogram has been ordered. Patient is also given IV Lasix 20 mg every 12. Can wean oxygen as tolerated patient is saturating 99% on 4 L. Continue to avoid the use of narcotics if possible and conservative management for pain with Tylenol. Continue Seroquel at bedtime as needed for agitation. Replace potassium and repeat labs in a.m. Patient unable to follow-up outpatient with GI having issues with chronic dysphagia and esophagram was ordered for further evaluation There is no GI services available in this hospital this week or next week and pending the studies patient may need to be transferred for GI services or follow-up outpatient. Patient is recommended for discharge to subacute rehab per pt notes and discharge likely next 24-48 hours medically patient is stable The impression and plan of care has been dictated by Terese Andres, Nurse Practitioner as directed. Dr. Keisha MD I have performed a history and physical examination and medical decision making of this patient, discussed the same with the dictator, and agree with the dictators assessment and plan as written, documented as a scribe. Based on total visit time, I have performed more than 50% of this visit. Objective - Vital Signs Vital signs: Vital Signs Temp 98.2 F 06/30/23 07:21 Pulse 122 H 06/30/23 08:35 Resp 16 06/30/23 07:21 BP 137/102 06/30/23 08:10 Pulse Ox 95 06/30/23 08:35 FiO2 Intake & Output 06/29/23 06/30/23 06/30/23 18:59 06:59 18:59 Output Total 400 Balance -400 Output: Urine 400 Other: Voiding Method Diaper # Voids 1 1 - Labs CBC & Chem 7: 06/30/23 05:47 06/30/23 05:47 Assessment and Plan Time with Patient: Greater than 30
[2023-06-30] MEDS: POTASSIUM CHLORIDE 10 MEQ in WATER FOR INJECTION 1 100ML.BAG IVPB SCH ×4 (16:13→23:22)
--- NOTE | 2023-06-30 20:43 | P.PN ---
Subjective Progress Note Date: 06/30/23 Principal diagnosis: Right IT fracture Patient is seen at bedside this morning. She is postop day #3 from gamma nail for right IT hip fracture. She has pain at the surgical site as expected. She has had some confusion and difficulty with appetite and eating. She denies numbness, tingling or calf pain. Review of systems is negative for fever, chills, chest pain, shortness of breath or other Objective - Vital Signs Vital signs: Vital Signs Temp 97.9 F 06/30/23 17:27 Pulse 120 H 06/30/23 17:27 Resp 24 06/30/23 17:27 BP 121/81 06/30/23 17:27 Pulse Ox 99 06/30/23 17:27 FiO2 Intake & Output 06/30/23 06/30/23 07/01/23 06:59 18:59 06:59 Output Total 2700 Balance -2700 Output: Urine 2700 Uretheral (Jordan) 2700 Other: Voiding Method Diaper Diaper Incontinent # Voids 1 - Exam Inspection reveals a benign surgical wound. There is no active bleeding or drainage. Neurovascular status is intact throughout the lower extremity with motor and sensation fully intact. Calf is soft and nontender. 2+ dorsalis pedis pulse and less than 2 second cap refill is present. - Constitutional General appearance: Present: no acute distress - Labs CBC & Chem 7: 06/30/23 05:47 06/30/23 05:47 Labs: Abnormal Lab Results - Last 24 Hours (Table) 06/30/23 06/30/23 06/30/23 Range/Units 05:47 05:47 12:46 WBC 13.78 H (4.50-10.00) X 10*3/uL RBC 3.28 L (4.10-5.20) X 10*6/uL Hgb 11.0 L (12.0-15.0) d/dL Hct 31.9 L (37.2-46.3) % MCV 97.3 H (80.0-97.0) FL MCH 33.5 H (27.0-32.0) pg Neutrophils # 11.80 H (1.80-7.70) X 10*3/uL Eosinophils # 0 L (0.04-0.35) X 10*3/uL Sodium 135 L (137-145) mmol/L Potassium 2.8 L (3.5-5.1) mmol/L Carbon Dioxide 18 L (22-30) mmol/L Creatinine 0.43 L (0.52-1.04) mg/dL Glucose 124 H (74-99) mg/dL Troponin I 0.073 H* (0.000-0.034) ng/mL Urine Ketones (Negative) 06/30/23 06/30/23 Range/Units 12:52 16:45 WBC (4.50-10.00) X 10*3/uL RBC (4.10-5.20) X 10*6/uL Hgb (12.0-15.0) d/dL Hct (37.2-46.3) % MCV (80.0-97.0) FL MCH (27.0-32.0) pg Neutrophils # (1.80-7.70) X 10*3/uL Eosinophils # (0.04-0.35) X 10*3/uL Sodium (137-145) mmol/L Potassium (3.5-5.1) mmol/L Carbon Dioxide (22-30) mmol/L Creatinine (0.52-1.04) mg/dL Glucose (74-99) mg/dL Troponin I 0.056 H* (0.000-0.034) ng/mL Urine Ketones 2+ H (Negative) Assessment and Plan (1) Fracture, intertrochanteric, right femur Narrative/Plan: She will continue with routine postop orthopedic protocol including pain management, wound care, PT, DVT prophylaxis and medical management. She may transfer to [facility] from an orthopedic standpoint when okay with IM Current Visit: Yes Status: Acute Priority: Medium Code(s): S72.141A - DISPLACED INTERTROCHANTERIC FRACTURE OF RIGHT FEMUR, INIT SNOMED Code(s): 346943977 Time with Patient: Less than 30
[2023-06-30] MEDS: PANTOPRAZOLE 40 MG/10 ML VIAL IVP SCH (21:12)
[2023-06-30] MEDS: MELATONIN 5 MG TABLET PO SCH (21:14)
[2023-06-30] MEDS: SENNOSIDES-DOCUSATE SODIUM 1 EACH TAB PO SCH (21:14)
[2023-06-30] MEDS: ATORVASTATIN 80 MG TAB PO SCH (21:14)
[2023-07-01] MEDS: POTASSIUM CHLORIDE 10 MEQ in WATER FOR INJECTION 1 100ML.BAG IVPB SCH ×6 (01:23→18:38)
[2023-07-01 07:30] LABS: Basophils % (A) 0 %; Eosinophils # (A) 0.1 k/uL (0-0.7); Eosinophils % (A) 1 %; Lymphocytes # (A) 1.7 k/uL (1.0-4.8); Lymphocytes % (A) 15 %; MCHC 35.2 g/dL (31.0-37.0); MCV 96.6 fL (80.0-100.0); Mean Platelet Volume 9.3; Monocytes # (A) 0.6 k/uL (0-1.0); Monocytes % (A) 5 %; Neutrophils # (A) 9.1 k/uL (1.3-7.7); Neutrophils % (A) 78 %; Platelet Count 220 k/uL (150-450); Poikilocytosis Slight; RBC 3.21 m/uL (3.80-5.40); RDW 14.8 % (11.5-15.5); WBC 11.7 k/uL (3.8-10.6)
[2023-07-01 07:45] LABS: African American GFR (CKD) >90 (>60 ml/min/1.73 sqM); Anion Gap 10 mmol/L; Blood Urea Nitrogen 26 mg/dL (7-17); Calcium 8.3 mg/dL (8.4-10.2); Carbon Dioxide 23 mmol/L (22-30); Chloride 100 mmol/L (98-107); Glucose 107 mg/dL (74-99); Non-African American GFR(CKD) >90 (>60 ml/min/1.73 sqM); Potassium 3.2 mmol/L (3.5-5.1); Sodium 133 mmol/L (137-145)
[2023-07-01 07:47] LABS: HGB 10.9 gm/dL (11.4-16.0)
[2023-07-01] MEDS: SYMBICORT 160-4.5 MCG INHALER INHALATION SCH ×2 (09:12→21:35)
[2023-07-01 09:19] LABS: Glucose,Whole Blood 114 mg/dL (70-110)
[2023-07-01] MEDS: polyethylene glycoL 3350 17 GM POWD.PACK PO SCH ×2 (13:10→20:08)
--- NOTE | 2023-07-01 13:17 | P.PN ---
Subjective Progress Note Date: 07/01/23 Patient is evaluated resting in bed. She reports significant pain to the right leg surgical site, she is postoperative day #1 right IM hip screw fixation for the right intratrochanteric hip fracture. Patient seems reluctant to get up out of bed due to pain and did work with PT today with recommendations for subacute rehab. Patient does wear oxygen at home as needed and remains on 2 L of nasal cannula. She has no acute complaints at this time. Passing gas. Does need encouragement to use the spirometer. 06/29/2023 Patient is evaluated today sitting in bed. Patient has been confused and agitated with staff and family. Alert x 1 and thinks she is at home. Patient is postoperative day #2 right IM hip screw fixation. Patient continues to report pain to the right hip. Did work some with physical therapy and IDC has been removed today patient is able to stand and pivot to the bedside commode. Patient will require likely subacute rehab on discharge. Seroquel has been added for the acute agitation. Pulse oximeter decreasing and will order a chest xray. Patient needs encouragement to use the incentive spirometer. 06/30/2023 She is evaluated today resting in bed. Patient is having issues with swallowing and has been evaluated by speech therapy who felt this was an esophageal stage dysfunction and may be some reflux. Patient will undergo esophagram and if warranted Gen. surgery can perform an EGD. Unfortunately there is not a GI specialist available inpatient this week or next week. Patient was referred to GI outpatient for follow-up and has had this issue ongoing over the last 3 months she has not been able to f/u with GI outpatient as of yet. Patient remained agitated overnight today she is more sedated. Will cut back to night time only seroquel. Patient was unable to take her a.m. medications due to the regurgitation and went into atrial fibrillation with rapid RVR with heart rate up into the 120s which was confirmed by EKG. Patient is anticoagulated with eliquis due to history of DVT. We will recommend starting patient on IV Cardizem bolus and drip and transferred to 3 S. Cardiology is on consult and echocardiogram has been ordered. 07/01/2023 Patient is evaluated today resting in bed she is more awake alert her mentation seems to be improved. She received Seroquel at bedtime. Patient for swallowing issues underwent upper barium GI swallow today and will follow-up with the reports on this. She is asking for water. Patient is postoperative day 4 for r ight hip surgical repair for a fracture and pain has significantly improved. Her main complaint today is lower back pain. Additionally patient was transferred to the medical floor for new atrial fibrillation with rapid ventricular rate she was started on IV Cardizem drip which is now being discont inued. Labs reveal white count of 11.7, hemoglobin 10.9, sodium 133, potassium 3.2. Her kidney function is normal. Review of Systems Constitutional: Reports fatigue, denies fever Cardio vascular: denied any chest pain, palpitations Gastrointestinal: Having difficulty swallowing with regurgitation, denies any abdominal pain no diarrhea no nausea. Pulmonary: Denied any shortness of breath cough Neurologic: Reports weakness. All inpatient medications were reviewed and appropriate changes in these medications as dictated in the interval history and assessment and plan. PHYSICAL EXAMINATION: GENERAL: The patient is alert and oriented 1, not in any acute distress. Well developed, well nourished. Lethargic HEENT: Pupils are round and equally reacting to light. EOMI. No scleral icterus. No conjunctival pallor. Normocephalic, atraumatic. No pharyngeal erythema. No thyromegaly. CARDIOVASCULAR: S1 and S2 present. No murmurs, rubs, or gallops. PULMONARY: Chest is clear to auscultation, no wheezing or crackles. ABDOMEN: Soft, nontender, nondistended, normoactive bowel sounds. No palpable organomegaly. MUSCULOSKELETAL: No joint swelling or deformity. EXTREMITIES: No cyanosis, clubbing, or pedal edema. +2 pedal pulses bilaterally NEUROLOGICAL: Gross neurological examination did not reveal any focal deficits. Post surgical right hip dressing intact. SKIN: No rashes. Assessment Fall with right hip fracture status post IM hip screw fixation New-onset atrial fibrillation with RVR Altered mental status due to acute delirium hospital-acquired Acute heart failure elevated proBNP unknown EF Acute on chronic dysphagia and esophageal dysfunction History right lower extremity DVT anticoagulation with eliquis which has been resumed postsurgically Hypertension Hyperlipidemia COPD with no acute exacerbation and chronic hypoxic respiratory failure on home oxygen History of anxiety/depression Dvt prophylaxis anticoagulated with eliquis Gi prophylaxis full code Plan Cardizem was discontinued echocardiogram pending cardiology consultation Continue to avoid the use of narcotics if possible and conservative management for pain with Tylenol. Continue Seroquel at bedtime as needed for agitation. Replace potassium and repeat labs in a.m. Patient unable to follow-up outpatient with GI having issues with chronic dysphagia and esophagram was ordered for further evaluation There is no GI services available in this hospital this week or next week and pending the studies patient may need to be transferred for GI services or follow-up outpatient. Patient is recommended for discharge to subacute rehab per pt notes and discharge likely next 24-48 hours medically patient is stable The impression and plan of care has been dictated by Nurse Xander Aleman as directed. Dr. Keisha MD I have performed a history and physical examination and medical decision making of this patient, discussed the same with the dictator, and agree with the dict ators assessment and plan as written, documented as a scribe. Based on total visit time, I have performed more than 50% of this visit. Objective - Vital Signs Vital signs: Vital Signs Temp 97.7 F 07/01/23 04:00 Pulse 116 H 07/01/23 04:00 Resp 20 07/01/23 04:00 BP 123/66 07/01/23 04:00 Pulse Ox 98 07/01/23 04:00 FiO2 Intake & Output 06/30/23 07/01/23 07/01/23 18:59 06:59 18:59 Output Total 2700 825 Balance -2700 -825 Output: Urine 2700 825 Uretheral ([place]) 2700 Other: Voiding Method Diaper Indwelling Catheter Incontinent # Bowel Movements 1 - Labs CBC & Chem 7: 07/01/23 06:05 07/01/23 06:05 Labs: Abnormal Lab Results - Last 24 Hours (Table) 06/30/23 06/30/23 06/30/23 Range/Units 05:47 05:47 12:46 WBC 13.78 H (4.50-10.00) X 10*3/uL RBC 3.28 L (4.10-5.20) X 10*6/uL Hgb 11.0 L (12.0-15.0) d/dL Hct 31.9 L (37.2-46.3) % MCV 97.3 H (80.0-97.0) FL MCH 33.5 H (27.0-32.0) pg Neutrophils # 11.80 H (1.80-7.70) X 10*3/uL Eosinophils # 0 L (0.04-0.35) X 10*3/uL Sodium 135 L (137-145) mmol/L Potassium 2.8 L (3.5-5.1) mmol/L Carbon Dioxide 18 L (22-30) mmol/L BUN (7-17) mg/dL Creatinine 0.43 L (0.52-1.04) mg/dL Glucose 124 H (74-99) mg/dL POC Glucose (mg/dL) (70-110) mg/dL Calcium (8.4-10.2) mg/dL Troponin I 0.073 H* (0.000-0.034) ng/mL Urine Ketones (Negative) 06/30/23 06/30/23 06/30/23 Range/Units 12:52 16:45 23:00 WBC (4.50-10.00) X 10*3/uL RBC (4.10-5.20) X 10*6/uL Hgb (12.0-15.0) d/dL Hct (37.2-46.3) % MCV (80.0-97.0) FL MCH (27.0-32.0) pg Neutrophils # (1.80-7.70) X 10*3/uL Eosinophils # (0.04-0.35) X 10*3/uL Sodium (137-145) mmol/L Potassium (3.5-5.1) mmol/L Carbon Dioxide (22-30) mmol/L BUN (7-17) mg/dL Creatinine (0.52-1.04) mg/dL Glucose (74-99) mg/dL POC Glucose (mg/dL) (70-110) mg/dL Calcium (8.4-10.2) mg/dL Troponin I 0.056 H* 0.040 H* (0.000-0.034) ng/mL Urine Ketones 2+ H (Negative) 07/01/23 07/01/23 07/01/23 Range/Units 06:05 06:05 09:17 WBC 11.7 H (4.50-10.00) X 10*3/uL RBC 3.21 L (4.10-5.20) X 10*6/uL Hgb 10.9 L D (12.0-15.0) d/dL Hct 31.0 L (37.2-46.3) % MCV (80.0-97.0) FL MCH (27.0-32.0) pg Neutrophils # 9.1 H (1.80-7.70) X 10*3/uL Eosinophils # (0.04-0.35) X 10*3/uL Sodium 133 L (137-145) mmol/L Potassium 3.2 L (3.5-5.1) mmol/L Carbon Dioxide (22-30) mmol/L BUN 26 H (7-17) mg/dL Creatinine 0.45 L (0.52-1.04) mg/dL Glucose 107 H (74-99) mg/dL POC Glucose (mg/dL) 114 H (70-110) mg/dL Calcium 8.3 L (8.4-10.2) mg/dL Troponin I (0.000-0.034) ng/mL Urine Ketones (Negative) Assessment and Plan Time with Patient: Less than 30
[2023-07-01] MEDS: PANTOPRAZOLE 40 MG/10 ML VIAL IVP SCH ×2 (13:28→20:08)
[2023-07-01] MEDS: APIXABAN 5 MG TAB PO SCH ×2 (13:29→20:07)
[2023-07-01] MEDS: METOPROLOL TARTRATE 50 MG TAB PO SCH ×2 (13:29→20:07)
[2023-07-01] MEDS: DULoxetine HCL 30 MG CAPSULE.DR PO SCH (13:29)
[2023-07-01] MEDS: SENNOSIDES 8.6 MG TAB PO SCH (13:30)
[2023-07-01] MEDS: traMADol 50 MG TAB PO PRN (13:38)
[2023-07-01] MEDS: FUROSEMIDE 10 MG/ML 2 ML VIAL IV SCH (13:43)
[2023-07-01] MEDS: POTASSIUM CHLORIDE ER 20 MEQ TAB.ER PO SCH (13:44)
--- NOTE | 2023-07-01 14:07 | P.PN ---
Subjective HISTORY OF PRESENT ILLNESS: The patient is a 77-year-old female patient with a past medical history significant for hypertension and dyslipidemia and history of low back surgery as well as hypoxic respiratory failure on oxygen at home for unknown reason the patient was unable to tell me nor her family. The patient was brought from [facility] after she fell and fractured her hip. She was diagnosed with a right femur fracture. The patient fell with no change in mental status and no presyncope or syncope.Symptoms of chest pain or chest discomfort beach she does have shortness of breath with exertion appeared to be chronic and unchanged compared to before. She was functional to about 6 months ago when she had low back surgery and since then she has not been very functional. Before that she was quite functional and able to do or go to flights of stairs without being symptomatic. No history of coronary artery disease or congestive heart failure or cardiac arrhythmia. The workup during this admission including EKG showing sinus mechanism with PVCs. The rest of the blood work came in to be unremarkable. No recent echocardiogram was performed. She does have history of DVT and currently she is on oral anticoagulation. 06/28 Patient is seen today in follow-up. Yesterday she underwent a right IM screw. She is scheduled to resume eliquis this morning. Patient seems somewhat c onfused this morning. She does state she is normal but better now than she did when she first got up this morning. Blood pressure 125/80, heart rate in the 80s and 90s. 07/01/2023 Cardiology was reconsulted to evaluate patient for new onset atrial fibrillation. Patient examined this morning at the bedside. Patient is lethargic and unable to provide much history at the time of examination. She was found to be in A. fib with RVR and was started on IV Cardizem. She is also receiving IV Lasix. PHYSICAL EXAM: VITAL SIGNS: Reviewed. GENERAL: Well-developed in no acute distress. NECK: Supple. No JVD or thyromegaly LUNGS: Respirations even and unlabored. Lungs essentially clear to auscultation bilaterally. HEART: Irregular rate and rhythm. S1 and S2 heard. EXTREMITIES: Normal range of motion. No clubbing or cyanosis. Peripheral pulses intact. No lower extremity edema ASSESSMENT: Status post fall with right hip fracture New-onset atrial fibrillation with RVR History of DVT, on oral anticoagulation Hypertension Hyperlipidemia PLAN: Obtain 2-D echo to assess cardiac structure and function Continue oral anticoagulation Continue metoprolol tartrate 50 mg twice a day Discontinue IV Cardizem Continue telemetry monitoring Discontinue IV Lasix as patient is not fluid overloaded on examination. Further recommendations pending patient's course Nurse practitioner note has been reviewed by physician. Signing provider agrees with the documented findings, assessment, and plan of care. Objective - Vital Signs Vital signs: Vital Signs Temp 98.1 F 07/01/23 09:05 Pulse 124 H 07/01/23 11:25 Resp 18 07/01/23 11:25 BP 95/64 07/01/23 11:25 Pulse Ox 97 07/01/23 11:25 FiO2 Intake & Output 06/30/23 07/01/23 07/01/23 18:59 06:59 18:59 Output Total 2700 825 Balance -2700 -825 Weight 55.338 kg Output: Urine 2700 825 Uretheral (Jordan) 2700 Other: Voiding Method Diaper Indwelling Catheter Indwelling Catheter Incontinent # Bowel Movements 1 - Labs CBC & Chem 7: 07/01/23 06:05 07/01/23 06:05 Labs: Abnormal Lab Results - Last 24 Hours (Table) 06/30/23 06/30/23 06/30/23 Range/Units 12:46 16:45 23:00 WBC (3.8-10.6) k/uL RBC (3.80-5.40) m/uL Hgb (11.4-16.0) gm/dL Hct (34.0-46.0) % Neutrophils # (1.3-7.7) k/uL Sodium (137-145) mmol/L Potassium (3.5-5.1) mmol/L BUN (7-17) mg/dL Creatinine (0.52-1.04) mg/dL Glucose (74-99) mg/dL POC Glucose (mg/dL) (70-110) mg/dL Calcium (8.4-10.2) mg/dL Troponin I 0.073 H* 0.056 H* 0.040 H* (0.000-0.034) ng/mL 07/01/23 07/01/23 07/01/23 Range/Units 06:05 06:05 09:17 WBC 11.7 H (3.8-10.6) k/uL RBC 3.21 L (3.80-5.40) m/uL Hgb 10.9 L D (11.4-16.0) gm/dL Hct 31.0 L (34.0-46.0) % Neutrophils # 9.1 H (1.3-7.7) k/uL Sodium 133 L (137-145) mmol/L Potassium 3.2 L (3.5-5.1) mmol/L BUN 26 H (7-17) mg/dL Creatinine 0.45 L (0.52-1.04) mg/dL Glucose 107 H (74-99) mg/dL POC Glucose (mg/dL) 114 H (70-110) mg/dL Calcium 8.3 L (8.4-10.2) mg/dL Troponin I (0.000-0.034) ng/mL
--- NOTE | 2023-07-01 15:25 | FL ---
EXAMINATION TYPE: FL UGI w esophagus w KUB DATE OF EXAM: 07/01/2023 CLINICAL HISTORY: esophageal dysfunction/ regurgitation TECHNIQUE: Limited single contrast esophagram and upper GI. COMPARISON: None FINDINGS: Examination is limited given difficulty in patient positioning given recent thoracic fractu re and vertebral plasty. There is evidence of tertiary esophageal contractions compatible with presbyesophagus. There is a sma ll reducible sliding type hiatal hernia. Contrast is noted to flow into the stomach without obvious m ass. Small outpouching is noted at the level of the gastric pylorus/duodenal bulb which could reflect a small ulceration. Examination is limited. Contrast is noted flow into the descending duodenum and portions of the transverse duodenum. IMPRESSION: 1. Limited study as noted above. 2. Small outpouching is noted at the level of the gastric pylorus/duodenal bulb which could reflect a small ulceration. Examination is limited. 3. Presbyesophagus.
--- NOTE | 2023-07-01 16:50 | CDI ---
Documentation Clarification Form Date: From: Andreina Sanches Phone: [phone] Admit Date: 06/26/2023 02:12:00 PM Patient Name: Nuzhat Zayas Visit Number: [id number] Discharge Date: ATTENTION: The Clinical Documentation Specialists (CDI) and [facility] Coding Staff appreciate your assistance in clarifying documentation. Please respond to the clarification below the line at the bottom and electronically sign. The CDI & [facility] Coding staff will review the response and follow-up if needed. Please note: Queries are made part of the Legal Health Record. If you have any questions, please contact the author of this message via ITS. Dr. Milli Valdes Your patient has increased troponin levels on 06/30. Please clarify if there is an additional diagnosis and/or clinical significance related to this value. Patient history/risk factors: Clinical indicators: "Cardiology was reconsulted to evaluate patient for new onset atrial fibrillation. Patient examined this morning at the bedside. Patient is lethargic and unable to provide much history at the time of examination. She was found to be in A. fib with RVR and was started on IV Cardizem. She is also receiving IV Lasix." - Per Cardiology Note on 07/01 "Cardiovascular: denied any chest pain, palpitations" "Pulmonary: Denied any shortness of breath cough" - Per Progress Note on 07/01 Troponin I 06/30 - 0.073, 0.056, 0.040 Treatment: Per Cardiology Note on 07/01 "Obtain 2-D echo to assess cardiac structure and function Continue oral anticoagulation Continue metoprolol tartrate 50 mg twice a day Discontinue IV Cardizem Continue telemetry monitoring Discontinue IV Lasix as patient is not fluid overloaded on examination." Is there an additional diagnosis and/or clinical significance related to the above lab result/information: [ ] Non-ischemic with acute myocardial injury [ x ] No additional diagnosis/Not clinically significant [ ] Other, please specify [ ] Unable to determine MTDD
--- NOTE | 2023-07-01 19:12 | CA ---
Transthoracic Echo Report Name: Nuzhat Zayas Age: 78 Gender: F : 1945 Exam Date: 06/30/2023 13:19 Exam Location: [place] [facility] Ht (in): 60 Wt (lb): 122 Ordering Physician: Terese Andres Attending/Referring Phys: Dmitry CORCORAN [employer] Specialist Alice Chang, JING Procedure CPT: Indications: chf, afib Cardiac Hx: Technical Quality: Good Contrast 1: Total Dose (mL): Contrast 2: Total Dose (mL): MEASUREMENTS (Male / Female) Normal Values 2D ECHO LV Diastolic Diameter PLAX 4.1 cm 4.2 - 5.9 / 3.9 - 5.3 cm LV Systolic Diameter PLAX 2.7 cm IVS Diastolic Thickness 1.1 cm 0.6 - 1.0 / 0.6 - 0.9 cm LVPW Diastolic Thickness 1.1 cm 0.6 - 1.0 / 0.6 - 0.9 cm LV Relative Wall Thickness 0.5 RV Internal Dim ED PLAX 3.1 cm LA Systolic Diameter LX 4.0 cm 3.0 - 4.0 / 2.7 - 3.8 cm LV Diastolic Volume MOD 4C 51.0 cm??? LV Systolic Volume MOD 4C 33.8 cm??? LV Ejection Fraction MOD 4C 33.6 % LV Cardiac Index MOD 4C 1377.5 cm???/min???m??? LV Diastolic Length 4C 6.5 cm LV Systolic Length 4C 5.6 cm LV Diastolic Volume MOD 2C 42.3 cm??? LV Systolic Volume MOD 2C 27.6 cm??? LV Ejection Fraction MOD 2C 34.8 % LV Cardiac Index MOD 2C 1184.8 cm???/min???m??? LV Diastolic Length 2C 5.9 cm LV Systolic Length 2C 5.4 cm LA Volume 57.7 cm??? 18 - 58 / 22 - 52 cm??? M-MODE Aortic Root Diameter MM 3.0 cm MV E Point Septal Separation 0.8 cm AV Cusp Separation MM 2.0 cm DOPPLER AV Peak Velocity 136.9 cm/s AV Peak Gradient 7.5 mmHg MV Area PHT 3.5 cm??? MV Deceleration Time 220.2 ms TR Peak Velocity 340.9 cm/s TR Peak Gradient 46.5 mmHg Right Ventricular Systolic Press 48.3 mmHg FINDINGS Left Ventricle Left ventricular ejection fraction is estimated at 40-45 %. Left ventricular cavity size normal. Mildly increased septal wall thickness. Mildly increased posterior wall thickness. Right Ventricle Normal right ventricular size. Moderate pulmonary hypertension. Right Atrium Moderate right atrial dilatation. Left Atrium Mildly increased left atrial diameter. Mildly increased left atrial volume. Mildly increased left atrial area. Mitral Valve Moderate mitral annular calcification. Moderate mitral regurgitation. Aortic Valve Trileaflet aortic valve. No aortic valve stenosis or regurgitation. Tricuspid Valve Structurally normal tricuspid valve. [id number] tricuspid regurgitation. Pulmonic Valve Pulmonic valve not well visualized. Pericardium No pericardial effusion. Aorta Normal size aortic root and proximal ascending aorta. CONCLUSIONS Reduced LV systolic function Dilated artery By atrial enlargement Previewed by: Dr. Aydin Lopez MD (Electronically Signed) Final Date: 01 July 2023 19:12
[2023-07-01] MEDS: SENNOSIDES-DOCUSATE SODIUM 1 EACH TAB PO SCH (20:08)
[2023-07-01] MEDS: ATORVASTATIN 80 MG TAB PO SCH (20:09)
[2023-07-01] MEDS: MELATONIN 5 MG TABLET PO SCH (20:09)
[2023-07-01] MEDS: QUEtiapine 25 MG TAB PO PRN (23:19)
[2023-07-02] MEDS: SYMBICORT 160-4.5 MCG INHALER INHALATION SCH ×2 (09:43→21:41)
[2023-07-02] MEDS: METOPROLOL TARTRATE 50 MG TAB PO SCH ×2 (09:46→20:38)
[2023-07-02] MEDS: DULoxetine HCL 30 MG CAPSULE.DR PO SCH (09:46)
[2023-07-02] MEDS: SENNOSIDES 8.6 MG TAB PO SCH (09:46)
[2023-07-02] MEDS: PANTOPRAZOLE 40 MG/10 ML VIAL IVP SCH ×2 (09:46→20:38)
[2023-07-02] MEDS: APIXABAN 5 MG TAB PO SCH ×2 (09:46→20:38)
[2023-07-02] MEDS ORDERED: SODIUM CHLORIDE 0.9% 1,000 ML IV SCH (10:00)
[2023-07-02] MEDS: POTASSIUM CHLORIDE ER 20 MEQ TAB.ER PO SCH (11:54)
[2023-07-02] MEDS: polyethylene glycoL 3350 17 GM POWD.PACK PO SCH ×2 (11:54→21:04)
--- NOTE | 2023-07-02 12:15 | P.PN ---
Subjective HISTORY OF PRESENT ILLNESS: The patient is a 77-year-old female patient with a past medical history significant for hypertension and dyslipidemia and history of low back surgery as well as hypoxic respiratory failure on oxygen at home for unknown reason the patient was unable to tell me nor her family. The patient was brought from [facility] after she fell and fractured her hip. She was diagnosed with a right femur fracture. The patient fell with no change in mental status and no presyncope or syncope.Symptoms of chest pain or chest discomfort beach she does have shortness of breath with exertion appeared to be chronic and unchanged compared to before. She was functional to about 6 months ago when she had low back surgery and since then she has not been very functional. Before that she was quite functional and able to do or go to flights of stairs without being symptomatic. No history of coronary artery disease or congestive heart failure or cardiac arrhythmia. The workup during this admission including EKG showing sinus mechanism with PVCs. The rest of the blood work came in to be unremarkable. No recent echocardiogram was performed. She does have history of DVT and currently she is on oral anticoagulation. 06/28 Patient is seen today in follow-up. Yesterday she underwent a right IM screw. She is scheduled to resume eliquis this morning. Patient seems somewhat c onfused this morning. She does state she is normal but better now than she did when she first got up this morning. Blood pressure 125/80, heart rate in the 80s and 90s. 07/01/2023 Cardiology was reconsulted to evaluate patient for new onset atrial fibrillation. Patient examined this morning at the bedside. Patient is lethargic and unable to provide much history at the time of examination. She was found to be in A. fib with RVR and was started on IV Cardizem. She is also receiving IV Lasix. 07/02/2023 Patient examined this morning at the bedside. Patient reports pain in her hip. Family is at the bedside who is concerned because the patient has not been eating and is weak. Telemetry reveals atrial fibrillation with heart rate between 100-110. Echocardiogram completed revealing ejection fraction 40-45%, moderate MR, and moderate to severe tricuspid regurgitation PHYSICAL EXAM: VITAL SIGNS: Reviewed. GENERAL: Well-developed in no acute distress. NECK: Supple. No JVD or thyromegaly LUNGS: Respirations even and unlabored. Lungs essentially clear to auscultation bilaterally. HEART: Irregular rate and rhythm. S1 and S2 heard. EXTREMITIES: Normal range of motion. No clubbing or cyanosis. Peripheral pulses intact. No lower extremity edema ASSESSMENT: Status post fall with right hip fracture New-onset atrial fibrillation with RVR History of DVT, on oral anticoagulation Hypertension Hyperlipidemia PLAN: Continue oral anticoagulation Continue metoprolol tartrate 50 mg twice a day. No change to beta sathish regimen today. Continue telemetry monitoring Dr. Merchant feels patient is becoming delirious secondary to pain. Recommend increased pain control. Will defer this to primary medicine. Further recommendations pending patient's course Nurse practitioner note has been reviewed by physician. Signing provider agrees with the documented findings, assessment, and plan of care. Objective - Vital Signs Vital signs: Vital Signs Temp 98.3 F 07/02/23 08:58 Pulse 112 H 07/02/23 08:58 Resp 18 07/02/23 08:58 BP 110/68 07/02/23 08:58 Pulse Ox 97 07/02/23 08:58 FiO2 21 07/02/23 05:28 Intake & Output 07/01/23 07/02/23 07/02/23 18:59 06:59 18:59 Intake Total 0 0 Output Total 250 225 Balance -250 -225 0 Weight 55.338 kg 53.5 kg Intake: Oral 0 0 Output: Gastric Drainage 0 Urine 250 225 Stool 0 Urine/Stool Mix 0 Emesis 0 Oral Regurgitation 0 Other 0 Other: Voiding Method Indwelling Catheter Indwelling Catheter Indwelling Catheter # Voids 0 # Bowel Movements 0 1 - Labs CBC & Chem 7: 07/01/23 06:05 07/01/23 06:05
[2023-07-02 12:20] LABS: African American GFR (CKD) >90 (>60 ml/min/1.73 sqM); Anion Gap 7 mmol/L; Blood Urea Nitrogen 33 mg/dL (7-17); Calcium 8.1 mg/dL (8.4-10.2); Carbon Dioxide 23 mmol/L (22-30); Chloride 104 mmol/L (98-107); Glucose 74 mg/dL (74-99); Non-African American GFR(CKD) >90 (>60 ml/min/1.73 sqM); Potassium 3.8 mmol/L (3.5-5.1); Sodium 134 mmol/L (137-145)
[2023-07-02 13:45] LABS: HCT 32.5 % (34.0-46.0); Hypochromasia Slight; MCH 33.6 pg (25.0-35.0); MCHC 33.9 g/dL (31.0-37.0); MCV 99.1 fL (80.0-100.0); Macrocytosis Slight; Mean Platelet Volume 9.4; Platelet Count 221 k/uL (150-450); Poikilocytosis Slight; RBC 3.28 m/uL (3.80-5.40); RDW 14.6 % (11.5-15.5)
[2023-07-02] MEDS: LIDOCAINE 5% PATCH TOPICAL SCH (13:48)
[2023-07-02 14:11] VITALS: BMI 23.0
[2023-07-02] MEDS: traMADol 50 MG TAB PO PRN ×2 (14:36→22:33)
[2023-07-02 15:19] LABS: Eosinophils # (M) 0.14 k/uL (0-0.7); Lymphocytes # (M) 2.17 k/uL (1.0-4.8); Monocytes # (M) 0.49 k/uL (0-1.0); Neutrophils # (M) 4.34 k/uL (1.3-7.7); Neutrophils % (M) 62 %; Nucleated Red Blood Cells 0 /100 WBC (0-0); Total Cells Counted 200
[2023-07-02 15:24] LABS: Polychromasia Present
--- NOTE | 2023-07-02 15:48 | P.DS ---
Providers Date of admission: 06/26/23 14:12 Attending physician: Miriam Honeycutt MD Consults: 06/26/23 12:39 Consult Physician Urgent Consulting Provider: Abhijit Pitts Consult Reason/Comments: Right intertrochanteric fracture Do you want consulting provider notified?: Already Contacted 06/26/23 12:46 Consult Physician Urgent Consulting Provider: Guicho Underwood Consult Reason/Comments: Surgical clearance, on eliquis and oxygen Do you want consulting provider notified?: Yes 06/30/23 12:35 Consult Physician Routine Consulting Provider: Zachary Merchant Consult Reason/Comments: NOS afib with RVR Do you want consulting provider notified?: Yes Primary care physician: Pablo Borges MD Hospital Course: Final Diagnosis Fall with right hip fracture status post IM hip screw fixation New-onset atrial fibrillation with RVR Troponin elevation Altered mental status due to acute delirium hospital-acquired Acute heart failure elevated proBNP unknown EF Acute on chronic dysphagia and esophageal dysfunction after GI showing presbyesophagus and possible ulceration of the gastric pylorus/duodenal bulb History right lower extremity DVT anticoagulation with eliquis which has been resumed postsurgically Hypertension Hyperlipidemia COPD with no acute exacerbation and chronic hypoxic respiratory failure on home oxygen History of anxiety/depression Dvt prophylaxis anticoagulated with eliquis Gi prophylaxis full code Discharge Disposition Patient stable for discharge to subacute rehab at [facility] tomorrow 05/02/2023. Patient continues on oral anticoagulation. Patient being followed by cardiology for NOS afib with RVR. Patient is on a beta sathish. Would not recommend Megace as appetite stimulant as this can increase risk for blood clot formation additionally patient is in atrial fibrillation and marinol can increase risk for rapid heart rate. Is on a mechanical soft diet. Recommend the patient follows up with GI services on discharge. Patient is having issues with pain management and states that this is a difficult thing to control outpatient as well she has tried multiple creams and patches as well as oral narcotics without much relief from her back injury. Hospital Course 77-year-old female who presents to the emergency department for a fall. Patient as medical history of hypertension, hyperlipidemia, DVT, respiratory failure. Patient is a transfer from [facility], where she was evaluated earlier today after a fall. She had lost her balance last night, when she fell and landed on her right hip. EMS was called because she was unable to get back up. She was found to have a femur fracture, and was subsequently transferred here for intervention. Patient is on Eliquis for prior DVT. She is also on oxygen at home. Additionally, patient did break her back 10 months ago and is continuing to deal with pain from that as well. Hip x-ray reveals right intertrochanteric fracture. Patient is admitted for further evaluation and treatment via orthopedic service. Patient was cleared for surgery by cardiology and medicine. On 06/27/2023 patient underwent right intramedullary hip screw fixation for the right intratrochanteric hip fracture. Postoperatively patient became confused and per family this happened after her prior orthopedic surgery as well. s also hag i with swallowing and having regurgitation sheis was of vomiting. Per family she has been worked up extensively for an outpatient including a barium swallow and upper endoscopy and was recommended to see GI services outpatient however they have been unable to get in with Dr. Delacruz. Ramy yuan during this hospital stay GI services are available. Patient underwent an upper GI barium swallow study which shows small outpouching noted at the level of the gastric pylorus/duodenal bulb which could reflect a small ulceration and there is also presbyesophagus. Patient went into atrial fibrillation with rapid ventricular rate during this hospital stay and was transferred to the cardiac unit, an echocardiogram is completed which shows reduced LV function to 40-45% with moderate pulmonary hypertension. Patient also had troponin elevation. Cardiology was consulted for this and patient was started on IV Cardizem and heart rate has improved down to the 100s remains in atrial fibrillation. And an elevated proBNP is 5480 however cardiology felt the patient is not in active heart failure. Patient remains on 2 L of oxygen, patient is afebrile, blood pressure is low normal. Patient is awake alert and oriented mentation has improved her bowels are moving. Patient does have low appetite and family is concerned as she has had poor oral intake. Patient may better when she was sitting up in the chair. Needs encouragement to eat. Currently denies chest pain denies shortness of breath no nausea vomiting or diarrhea currently she is tolerating diet. Her lungs are clear, S1-S2 auscultated, abdomen soft nontender she has no peripheral edema and the dressing is intact and dry to the right hip. Patient will be discharged to subacute rehab. Please see medication reconciliation for list of current medication. Thank you for allowing us to participate in the care of this patient. The impression and plan of care has been dictated by Terese Andres, Nurse Practitioner as directed. Dr. Keisha MD I have performed a history and physical examination and medical decision making of this patient, discussed the same with the dictator, and agree with the dictators assessment and plan as written, documented as a scribe. Based on total visit time, I have performed more than 50% of this visit. Patient Condition at Discharge: Stable Plan - Discharge Summary Discharge Rx Participant: Yes New Discharge Prescriptions: New Lidocaine 5% Patch [Lidoderm 5% Patch] 1 patch TOPICAL DAILY patch Metoprolol Tartrate [Lopressor] 50 mg PO BID tab Sennosides-Docusate Sodium [Senokot-S] 2 each PO HS tab traMADol HCl [Ultram] 50 mg PO QID PRN #4 tab PRN Reason: Pain QUEtiapine [SEROquel] 12.5 mg PO HS PRN tab PRN Reason: Agitation Or Acute Anxiety Acetaminophen Tab [Tylenol] 650 mg PO Q6HR PRN tab PRN Reason: Mild Pain Or Fever > 100.5 Continue Melatonin 5 mg PO HS Furosemide [Lasix] 20 mg PO DAILY Ergocalciferol [Vitamin D2 (1250 Mcg = 68147 Iu)] 1,250 mcg PO Q7D polyethylene glycoL 3350 [Miralax] 17 gm PO BID Omeprazole 40 mg PO DAILY Diclofenac Sodium Gel [Voltaren Gel] 2 - 4 gm TOPICAL QID PRN PRN Reason: Pain DULoxetine HCL [Cymbalta] 30 mg PO DAILY Atorvastatin [Lipitor] 80 mg PO HS LORazepam [Ativan] 0.5 mg PO Q8H #3 tab Apixaban [Eliquis] 5 mg PO BID Sennosides [Senokot] 8.6 mg PO DAILY Budesonide/Formoterol Fumarate [Symbicort 160-4.5 Mcg Inhaler] 2 puff INHALATION RT-BID Potassium Chloride [Klor-Con M20] 20 meq PO DAILY Aspirin EC [Ecotrin Low Dose] 81 mg PO DAILY Albuterol Sulfate [Ventolin HFA] 2 puff INHALATION RT-Q6H PRN PRN Reason: Shortness Of Breath Discontinued HYDROcodone/APAP 7.5-325MG [[place] 7.5-325] 1 - 1.5 tab PO Q6H PRN PRN Reason: Pain Metoprolol Succinate (ER) [Toprol Xl] 100 mg PO DAILY Discharge Medication List Apixaban [Eliquis] 5 mg PO BID 08/18/21 [History] Furosemide [Lasix] 20 mg PO DAILY 08/18/21 [History] Melatonin 5 mg PO HS 08/18/21 [History] Albuterol Sulfate [Ventolin HFA] 2 puff INHALATION RT-Q6H PRN 06/26/23 [History] Aspirin EC [Ecotrin Low Dose] 81 mg PO DAILY 06/26/23 [History] Atorvastatin [Lipitor] 80 mg PO HS 06/26/23 [History] Budesonide/Formoterol Fumarate [Symbicort 160-4.5 Mcg Inhaler] 2 puff INHALATION RT-BID 06/26/23 [History] DULoxetine HCL [Cymbalta] 30 mg PO DAILY 06/26/23 [History] Diclofenac Sodium Gel [Voltaren Gel] 2 - 4 gm TOPICAL QID PRN 06/26/23 [History] Ergocalciferol [Vitamin D2 (1250 Mcg = 73867 Iu)] 1,250 mcg PO Q7D 06/26/23 [History] Omeprazole 40 mg PO DAILY 06/26/23 [History] Potassium Chloride [Klor-Con M20] 20 meq PO DAILY 06/26/23 [History] Sennosides [Senokot] 8.6 mg PO DAILY 06/26/23 [History] polyethylene glycoL 3350 [Miralax] 17 gm PO BID 06/26/23 [History] Acetaminophen Tab [Tylenol] 650 mg PO Q6HR PRN tab 07/02/23 [Rx] LORazepam [Ativan] 0.5 mg PO Q8H #3 tab 07/02/23 [Rx] Lidocaine 5% Patch [Lidoderm 5% Patch] 1 patch TOPICAL DAILY patch 07/02/23 [Rx] Metoprolol Tartrate [Lopressor] 50 mg PO BID tab 07/02/23 [Rx] QUEtiapine [SEROquel] 12.5 mg PO HS PRN tab 07/02/23 [Rx] Sennosides-Docusate Sodium [Senokot-S] 2 each PO HS tab 07/02/23 [Rx] traMADol HCl [Ultram] 50 mg PO QID PRN #4 tab 07/02/23 [Rx] Follow up Appointment(s)/Referral(s): Pablo Borges MD [Primary Care Provider] - 1-2 days Abhijit Pitts MD [STAFF PHYSICIAN] - 07/14/23 1:45 pm Guicho Underwood MD [STAFF PHYSICIAN] - 1 Week Ambulatory/Diagnostic Orders: Basic Metabolic Panel [LAB.AMB] Location: None Selected Complete Blood Count w/diff [LAB.AMB] Time Frame: 3 Days, Location: None Selected Activity/Diet/Wound Care/Special Instructions: touchdown weightbear with walker keep wound clean and dry may shower in 3 days ly out on or about POD #12 Discharge Disposition: TRANSFER TO SNF/ECF
[2023-07-02] MEDS: KETOROLAC 15 MG/ML 1 ML VIAL IVP PRN (20:38)
[2023-07-02] MEDS: ATORVASTATIN 80 MG TAB PO SCH (21:03)
[2023-07-02] MEDS: MELATONIN 5 MG TABLET PO SCH (21:03)
[2023-07-02] MEDS: SENNOSIDES-DOCUSATE SODIUM 1 EACH TAB PO SCH (21:04)
[2023-07-03] MEDS: QUEtiapine 25 MG TAB PO PRN ×2 (00:52→20:30)
[2023-07-03] MEDS: LORazepam 0.5 MG TAB PO PRN (05:38)
[2023-07-03] MEDS: SYMBICORT 160-4.5 MCG INHALER INHALATION SCH ×2 (08:49→20:16)
[2023-07-03] MEDS: METOPROLOL TARTRATE 50 MG TAB PO SCH (09:28)
[2023-07-03] MEDS: TAMSULOSIN 0.4 MG CAP.ER.24H PO SCH (09:28)
[2023-07-03] MEDS: DULoxetine HCL 30 MG CAPSULE.DR PO SCH (09:28)
[2023-07-03] MEDS: APIXABAN 5 MG TAB PO SCH ×2 (09:28→20:33)
[2023-07-03] MEDS: LIDOCAINE 5% PATCH TOPICAL SCH (09:29)
[2023-07-03] MEDS: polyethylene glycoL 3350 17 GM POWD.PACK PO SCH ×2 (09:30→20:32)
[2023-07-03] MEDS: PANTOPRAZOLE 40 MG/10 ML VIAL IVP SCH ×2 (09:30→20:33)
[2023-07-03] MEDS: SENNOSIDES 8.6 MG TAB PO SCH (09:30)
[2023-07-03] MEDS: POTASSIUM CHLORIDE ER 20 MEQ TAB.ER PO SCH (09:30)
[2023-07-03] MEDS: traMADol 50 MG TAB PO PRN ×2 (10:20→20:31)
[2023-07-03] MEDS ORDERED: SODIUM CHLORIDE 0.9% 500 ML 1,000 ML IV ONE (13:39)
[2023-07-03] MEDS: SODIUM CHLORIDE 0.9% 1,000 ML IV SCH (13:51)
[2023-07-03] MEDS ORDERED: SODIUM CHLORIDE 0.9% 500 ML 500 ML IV ONE (13:53)
[2023-07-03] MEDS: ERGOCALCIFEROL 1,250 MCG (50,000 IU) CAPSULE PO SCH (16:18)
[2023-07-03] MEDS: KETOROLAC 15 MG/ML 1 ML VIAL IVP PRN (16:18)
--- NOTE | 2023-07-03 17:19 | P.PN ---
Subjective Progress Note Date: 07/03/23 Patient is evaluated resting in bed. She reports significant pain to the right leg surgical site, she is postoperative day #1 right IM hip screw fixation for the right intratrochanteric hip fracture. Patient seems reluctant to get up out of bed due to pain and did work with PT today with recommendations for subacute rehab. Patient does wear oxygen at home as needed and remains on 2 L of nasal cannula. She has no acute complaints at this time. Passing gas. Does need encouragement to use the spirometer. 06/29/2023 Patient is evaluated today sitting in bed. Patient has been confused and agitated with staff and family. Alert x 1 and thinks she is at home. Patient is postoperative day #2 right IM hip screw fixation. Patient continues to report pain to the right hip. Did work some with physical therapy and IDC has been removed today patient is able to stand and pivot to the bedside commode. Patient will require likely subacute rehab on discharge. Seroquel has been added for the acute agitation. Pulse oximeter decreasing and will order a chest xray. Patient needs encouragement to use the incentive spirometer. 06/30/2023 She is evaluated today resting in bed. Patient is having issues with swallowing and has been evaluated by speech therapy who felt this was an esophageal stage dysfunction and may be some reflux. Patient will undergo esophagram and if warranted Gen. surgery can perform an EGD. Unfortunately there is not a GI specialist available inpatient this week or next week. Patient was referred to GI outpatient for follow-up and has had this issue ongoing over the last 3 months she has not been able to f/u with GI outpatient as of yet. Patient remained agitated overnight today she is more sedated. Will cut back to night time only seroquel. Patient was unable to take her a.m. medications due to the regurgitation and went into atrial fibrillation with rapid RVR with heart rate up into the 120s which was confirmed by EKG. Patient is anticoagulated with eliquis due to history of DVT. We will recommend starting patient on IV Cardizem bolus and drip and transferred to 3 S. Cardiology is on consult and echocardiogram has been ordered. 07/01/2023 Patient is evaluated today resting in bed she is more awake alert her mentation seems to be improved. She received Seroquel at bedtime. Patient for swallowing issues underwent upper barium GI swallow today and will follow-up with the reports on this. She is asking for water. Patient is postoperative day 4 for r ight hip surgical repair for a fracture and pain has significantly improved. Her main complaint today is lower back pain. Additionally patient was transferred to the medical floor for new atrial fibrillation with rapid ventricular rate she was started on IV Cardizem drip which is now being discont inued. Labs reveal white count of 11.7, hemoglobin 10.9, sodium 133, potassium 3.2. Her kidney function is normal. 07/03/2023 Patient is evaluated today on the medical floor. Patient continues to report severe pain to the right hip, patient is post op right IM hip screw fixation. Dressing is intact no increased swelling noted to the right hip. Patient has positive pedal pulses. She is more awake alert mentation has improved. Appetite has also improved today. Patient reports eating breakfast about 50% and was sitting up in the chair. Patient was set to discharge to subacute rehab today however BP was on the lower side high 80s systolic. patient being gently hydrated and also metoprolol is being decreased. Echocardiogram has been resulted showing an EF of 40-45% with moderate MR and mod to severe TR, moderate pulmonary hypertension. Review of Systems Constitutional: Reports fatigue, denies fever Cardio vascular: denied any chest pain, palpitations Gastrointestinal: Having difficulty swallowing with regurgitation, denies any abdominal pain no diarrhea no nausea. Pulmonary: Denied any shortness of breath cough Neurologic: Reports weakness. All inpatient medications were reviewed and appropriate changes in these medications as dictated in the interval history and assessment and plan. PHYSICAL EXAMINATION: GENERAL: The patient is alert and oriented 3, not in any acute distress. Well developed, well nourished. More awake. Anxious and tearful. HEENT: Pupils are round and equally reacting to light. EOMI. No scleral icterus. No conjunctival pallor. Normocephalic, atraumatic. No pharyngeal erythema. No thyromegaly. CARDIOVASCULAR: S1 and S2 present. No murmurs, rubs, or gallops. PULMONARY: Chest is clear to auscultation, no wheezing or crackles. ABDOMEN: Soft, nontender, nondistended, normoactive bowel sounds. No palpable organomegaly. MUSCULOSKELETAL: No joint swelling or deformity. EXTREMITIES: No cyanosis, clubbing, or pedal edema. +2 pedal pulses bilaterally NEUROLOGICAL: Gross neurological examination did not reveal any focal deficits. Post surgical right hip dressing intact. SKIN: No rashes. Assessment Fall with right hip fracture status post IM hip screw fixation New-onset atrial fibrillation with RVR currently rate controlled. Altered mental status due to acute delirium hospital-acquired Acute systolic heart failure EF 40-45% treated with IV lasix. Moderate pulmonary hypertension Acute on chronic dysphagia and esophageal dysfunction History right lower extremity DVT anticoagulation with eliquis which has been resumed postsurgically Hypertension Hyperlipidemia COPD with no acute exacerbation and chronic hypoxic respiratory failure on home oxygen History of anxiety/depression Dvt prophylaxis anticoagulated with eliquis Gi prophylaxis full code Plan Cardizem discontinued and metoprolol has been decreased Patient is being gently hydrated. Continue to avoid the use of narcotics if possible and conservative management for pain with Tylenol. Continue Seroquel at bedtime as needed for agitation. Replace potassium and repeat labs in a.m. Patient unable to follow-up outpatient with GI having issues with chronic dysphagia and esophagram was ordered for further evaluation There is no GI services available in this hospital this week or next week and pending the studies patient may need to be transferred for GI services or follow-up outpatient. Discharge held due to low blood pressures and d/c will now be wednesday at the earliest as SW is not available on Sundays to assist with transfer. Repeat labs in AM. The impression and plan of care has been dictated by Terese Andres, Nurse Practitioner as directed. Dr. Keisha MD I have performed a history and physical examination and medical decision making of this patient, discussed the same with the dictator, and agree with the dictators assessment and plan as written, documented as a scribe. Based on total visit time, I have performed more than 50% of this visit. Objective - Vital Signs Vital signs: Vital Signs Temp 98.3 F 07/03/23 16:00 Pulse 96 07/03/23 16:00 Resp 18 07/03/23 16:00 BP 95/66 07/03/23 16:00 Pulse Ox 93 L 07/03/23 09:22 FiO2 21 07/02/23 05:28 Intake & Output 07/02/23 07/03/23 07/03/23 18:59 06:59 18:59 Intake Total 0 90 Output Total 350 Balance 0 -350 90 Weight 53.5 kg Intake: Oral 0 90 Output: Urine 350 Other: Voiding Method Indwelling Catheter Indwelling Catheter Indwelling Catheter - Labs CBC & Chem 7: 07/02/23 10:19 07/02/23 10:19 Assessment and Plan Time with Patient: Less than 30
[2023-07-03] MEDS: SENNOSIDES-DOCUSATE SODIUM 1 EACH TAB PO SCH (20:31)
[2023-07-03] MEDS: MELATONIN 5 MG TABLET PO SCH (20:33)
[2023-07-03] MEDS: ATORVASTATIN 80 MG TAB PO SCH (20:33)
[2023-07-03] MEDS ORDERED: METOPROLOL TARTRATE 25 MG TAB PO SCH (21:00)
--- NOTE | 2023-07-03 22:13 | P.PN ---
Subjective Progress Note Date: 07/03/23 Subjective: Patient was seen and examined at bedside this a.m. she is much more alert and oriented today after her pain has been controlled better. She is noticed to be slightly hypertensive today. I will cutdown on metoprolol from 50 mg twice a day to 25 mg twice a day. Heart heart rate has been controlled and she continues to be in atrial fibrillation. She is tolerating I told her anticoagulation without any concerns of bleeding. ASSESSMENT: Status post fall with right hip fracture New-onset atrial fibrillation with RVR History of DVT, on oral anticoagulation Hypertension Hyperlipidemia PLAN: Continue oral anticoagulation Reduce beta sathish metoprolol from 50 mg to 25 mg twice a day due to hypertension Continue telemetry monitoring At this time patient is stable from cardiovascular standpoint. Cardiology team will sign off. Please reconsult us in case of any question Objective - Vital Signs Vital signs: Vital Signs Temp 98.3 F 07/03/23 16:00 Pulse 96 07/03/23 16:00 Resp 18 07/03/23 16:00 BP 95/66 07/03/23 16:00 Pulse Ox 93 L 07/03/23 09:22 FiO2 21 07/02/23 05:28 Intake & Output 07/03/23 07/03/23 07/04/23 06:59 18:59 06:59 Intake Total 330 Output Total 350 450 Balance -350 -120 Intake: Oral 330 Output: Urine 350 450 Other: Voiding Method Indwelling Catheter Indwelling Catheter - Labs CBC & Chem 7: 07/02/23 10:19 07/02/23 10:19
[2023-07-04] MEDS: LORazepam 0.5 MG TAB PO PRN ×3 (04:03→20:57)
[2023-07-04] MEDS: KETOROLAC 15 MG/ML 1 ML VIAL IVP PRN ×2 (06:23→20:55)
[2023-07-04] MEDS: APIXABAN 5 MG TAB PO SCH ×2 (08:58→20:57)
[2023-07-04] MEDS: TAMSULOSIN 0.4 MG CAP.ER.24H PO SCH (08:58)
[2023-07-04] MEDS: LIDOCAINE 5% PATCH TOPICAL SCH (08:58)
[2023-07-04] MEDS: PANTOPRAZOLE 40 MG/10 ML VIAL IVP SCH ×2 (08:58→20:54)
[2023-07-04] MEDS: DULoxetine HCL 30 MG CAPSULE.DR PO SCH (08:58)
[2023-07-04] MEDS: METOPROLOL TARTRATE 50 MG TAB PO SCH ×2 (08:58→20:57)
[2023-07-04] MEDS ORDERED: DILTIAZEM 125 MG in SODIUM CHLORIDE 0.9% 100 ML IV SCH (09:00)
[2023-07-04 09:10] LABS: Basophils % (A) 0 %; Eosinophils # (A) 0.2 k/uL (0-0.7); Eosinophils % (A) 2 %; HCT 33.1 % (34.0-46.0); HGB 11.1 gm/dL (11.4-16.0); Hypochromasia Slight; Lymphocytes # (A) 2.4 k/uL (1.0-4.8); Lymphocytes % (A) 28 %; MCHC 33.7 g/dL (31.0-37.0); MCV 98.1 fL (80.0-100.0); Macrocytosis Slight; Mean Platelet Volume 8.9; Monocytes # (A) 0.5 k/uL (0-1.0); Monocytes % (A) 5 %; Neutrophils # (A) 5.7 k/uL (1.3-7.7); Neutrophils % (A) 65 %; Platelet Count 273 k/uL (150-450); Poikilocytosis Slight; RBC 3.37 m/uL (3.80-5.40); RDW 14.9 % (11.5-15.5); WBC 8.9 k/uL (3.8-10.6)
[2023-07-04] MEDS: SYMBICORT 160-4.5 MCG INHALER INHALATION SCH ×2 (09:14→20:17)
[2023-07-04 09:19] LABS: African American GFR (CKD) >90 (>60 ml/min/1.73 sqM); Anion Gap 8 mmol/L; Blood Urea Nitrogen 24 mg/dL (7-17); Carbon Dioxide 21 mmol/L (22-30); Chloride 106 mmol/L (98-107); Glucose 108 mg/dL (74-99); Non-African American GFR(CKD) >90 (>60 ml/min/1.73 sqM); Potassium 3.4 mmol/L (3.5-5.1); Sodium 135 mmol/L (137-145)
[2023-07-04] MEDS: traMADol 50 MG TAB PO PRN (10:25)
[2023-07-04] MEDS: PREGABALIN 75 MG CAP PO SCH ×2 (10:43→20:57)
[2023-07-04] MEDS ORDERED: PREGABALIN 50 MG CAP PO SCH (10:45)
[2023-07-04] MEDS: SENNOSIDES 8.6 MG TAB PO SCH (11:53)
[2023-07-04] MEDS: POTASSIUM CHLORIDE ER 20 MEQ TAB.ER PO SCH (11:53)
[2023-07-04] MEDS: polyethylene glycoL 3350 17 GM POWD.PACK PO SCH ×2 (11:53→20:58)
[2023-07-04] MEDS: SODIUM CHLORIDE 0.9% 1,000 ML IV SCH ×2 (11:54→18:02)
--- NOTE | 2023-07-04 11:56 | P.PN ---
Subjective Progress Note Date: 07/04/23 Patient is evaluated resting in bed. She reports significant pain to the right leg surgical site, she is postoperative day #1 right IM hip screw fixation for the right intratrochanteric hip fracture. Patient seems reluctant to get up out of bed due to pain and did work with PT today with recommendations for subacute rehab. Patient does wear oxygen at home as needed and remains on 2 L of nasal cannula. She has no acute complaints at this time. Passing gas. Does need encouragement to use the spirometer. 06/29/2023 Patient is evaluated today sitting in bed. Patient has been confused and agitated with staff and family. Alert x 1 and thinks she is at home. Patient is postoperative day #2 right IM hip screw fixation. Patient continues to report pain to the right hip. Did work some with physical therapy and IDC has been removed today patient is able to stand and pivot to the bedside commode. Patient will require likely subacute rehab on discharge. Seroquel has been added for the acute agitation. Pulse oximeter decreasing and will order a chest xray. Patient needs encouragement to use the incentive spirometer. 06/30/2023 She is evaluated today resting in bed. Patient is having issues with swallowing and has been evaluated by speech therapy who felt this was an esophageal stage dysfunction and may be some reflux. Patient will undergo esophagram and if warranted Gen. surgery can perform an EGD. Unfortunately there is not a GI specialist available inpatient this week or next week. Patient was referred to GI outpatient for follow-up and has had this issue ongoing over the last 3 months she has not been able to f/u with GI outpatient as of yet. Patient remained agitated overnight today she is more sedated. Will cut back to night time only seroquel. Patient was unable to take her a.m. medications due to the regurgitation and went into atrial fibrillation with rapid RVR with heart rate up into the 120s which was confirmed by EKG. Patient is anticoagulated with eliquis due to history of DVT. We will recommend starting patient on IV Cardizem bolus and drip and transferred to 3 S. Cardiology is on consult and echocardiogram has been ordered. 07/01/2023 Patient is evaluated today resting in bed she is more awake alert her mentation seems to be improved. She received Seroquel at bedtime. Patient for swallowing issues underwent upper barium GI swallow today and will follow-up with the reports on this. She is asking for water. Patient is postoperative day 4 for r ight hip surgical repair for a fracture and pain has significantly improved. Her main complaint today is lower back pain. Additionally patient was transferred to the medical floor for new atrial fibrillation with rapid ventricular rate she was started on IV Cardizem drip which is now being discont inued. Labs reveal white count of 11.7, hemoglobin 10.9, sodium 133, potassium 3.2. Her kidney function is normal. 07/03/2023 Patient is evaluated today on the medical floor. Patient continues to report severe pain to the right hip, patient is post op right IM hip screw fixation. Dressing is intact no increased swelling noted to the right hip. Patient has positive pedal pulses. She is more awake alert mentation has improved. Appetite has also improved today. Patient reports eating breakfast about 50% and was sitting up in the chair. Patient was set to discharge to subacute rehab today however BP was on the lower side high 80s systolic. patient being gently hydrated and also metoprolol is being decreased. Echocardiogram has been resulted showing an EF of 40-45% with moderate MR and mod to severe TR, moderate pulmonary hypertension. 07/04/2023 Patient is evaluated on the medical floor mostly resting in bed. She continues with severe pain generalized and does report that she has a burning sensation throughout is mostly in her hands. Noted that patient was on Lyrica and gabapentin at home family states that she has been alternating between the 2 and is unsure which one she is supposed to be taking at this time. We will resume Lyrica 75 mg twice a day for the peripheral neuropathy and follow-up with her pain management. Patient went back into atrial fibrillation with a rapid ventricular rate heart rate up to 160 today she was resumed on an IV Cardizem drip by cardiology. Heart rate is currently in the low 100s remains in atrial fibrillation. She remains on 2 L of oxygen. Sodium level 135. Patient is being gently hydrated with normal saline at 50 mL per hour her blood pressure has improved into the 110s systolic. Potassium 3.4 today. Review of Systems Constitutional: Reports fatigue, denies fever Cardio vascular: denied any chest pain, palpitations Gastrointestinal: Having difficulty swallowing with regurgitation, denies any abdominal pain no diarrhea no nausea. Pulmonary: Denied any shortness of breath cough Neurologic: Reports weakness. All inpatient medications were reviewed and appropriate changes in these medications as dictated in the interval history and assessment and plan. PHYSICAL EXAMINATION: GENERAL: The patient is alert and oriented 3, not in any acute distress. Well developed, well nourished. More awake. Anxious and tearful. HEENT: Pupils are round and equally reacting to light. EOMI. No scleral icterus. No conjunctival pallor. Normocephalic, atraumatic. No pharyngeal erythema. No thyromegaly. CARDIOVASCULAR: S1 and S2 present. No murmurs, rubs, or gallops. RVR with irregular rate and rhythm. PULMONARY: Chest is clear to auscultation, no wheezing or crackles. ABDOMEN: Soft, nontender, nondistended, normoactive bowel sounds. No palpable organomegaly. MUSCULOSKELETAL: No joint swelling or deformity. EXTREMITIES: No cyanosis, clubbing, or pedal edema. +2 pedal pulses bilaterally NEUROLOGICAL: Gross neurological examination did not reveal any focal deficits. Post surgical right hip dressing intact. SKIN: No rashes. Assessment Fall with right hip fracture status post IM hip screw fixation New-onset atrial fibrillation with RVR improved with IV cardizem and now back in RVR. Altered mental status due to acute delirium hospital-acquired resolved. Acute systolic heart failure EF 40-45% treated with IV lasix currently off IV lasix and being gently hydrated. Moderate pulmonary hypertension Peripheral neuropathy. Acute on chronic dysphagia and esophageal dysfunction History right lower extremity DVT anticoagulation with eliquis which has been resumed postsurgically Hypertension Hyperlipidemia COPD with no acute exacerbation and chronic hypoxic respiratory failure on home oxygen History of anxiety/depression Dvt prophylaxis anticoagulated with eliquis Gi prophylaxis full code Plan Metoprolol has been increased by cardiology and IV cardizem resumed. Patient is being gently hydrated, blood pressure has slightly improved. Continue to avoid the use of narcotics if possible and conservative management for pain with Tylenol. Continue Seroquel at bedtime as needed for agitation. Lyrica BID has been resumed patient is on this medication at home for peripheral neuropathy. Replace potassium and repeat labs in a.m. Patient unable to follow-up outpatient with GI having issues with chronic dysphagia and esophagram was ordered for further evaluation There is no GI services available in this hospital this week or next week for evaluation. Swallowing has improved patient to follow up with GI outpatient. Discharge to rehab likely on Wednesday when SW is available to facilitate discharge. Repeat labs in AM. The impression and plan of care has been dictated by Terese Andres, Nurse Practitioner as directed. Dr. Keisha MD I have performed a history and physical examination and medical decision making of this patient, discussed the same with the dictator, and agree with the d ictators assessment and plan as written, documented as a scribe. Based on total visit time, I have performed more than 50% of this visit. Objective - Vital Signs Vital signs: Vital Signs Temp 97.7 F 07/04/23 08:00 Pulse 122 H 07/04/23 08:00 Resp 18 07/04/23 08:00 BP 117/74 07/04/23 08:00 Pulse Ox 93 L 07/04/23 09:15 FiO2 21 07/02/23 05:28 Intake & Output 07/03/23 07/04/23 07/04/23 18:59 06:59 18:59 Intake Total 330 500 120 Output Total 450 0 675 Balance -120 500 -555 Intake: Intake, IV Titration 350 Amount Sodium Chloride 0.9% 1, 350 000 ml @ 50 mls/hr IV . Q20H [facility] Rx#:[id number] Oral 330 150 120 Output: Urine 450 675 Stool 0 Other: Voiding Method Indwelling Catheter Indwelling Catheter - Labs CBC & Chem 7: 07/04/23 08:18 07/04/23 08:18 Labs: Abnormal Lab Results - Last 24 Hours (Table) 07/04/23 07/04/23 Range/Units 08:18 08:18 RBC 3.37 L (3.80-5.40) m/uL Hgb 11.1 L (11.4-16.0) gm/dL Hct 33.1 L (34.0-46.0) % Sodium 135 L (137-145) mmol/L Potassium 3.4 L (3.5-5.1) mmol/L Carbon Dioxide 21 L (22-30) mmol/L BUN 24 H (7-17) mg/dL Creatinine 0.47 L (0.52-1.04) mg/dL Glucose 108 H (74-99) mg/dL Calcium 8.0 L (8.4-10.2) mg/dL Assessment and Plan Time with Patient: Less than 30
[2023-07-04] MEDS: POTASSIUM CHLORIDE 10 MEQ in WATER FOR INJECTION 1 100ML.BAG IVPB SCH ×4 (12:49→18:02)
--- NOTE | 2023-07-04 19:37 | P.PN ---
Subjective Progress Note Date: 07/04/23 Subjective: Patient went into atrial fibrillation with RVR. For this I have increased her metoprolol to 50 mg twice a day. She was kept on Cardizem drip overnight which I have discontinued. ASSESSMENT: Status post fall with right hip fracture New-onset atrial fibrillation with RVR History of DVT, on oral anticoagulation Hypertension Hyperlipidemia PLAN: Continue oral anticoagulation Increase back metoprolol to 50 mg twice a day as she went into atrial fi brillation. Blood pressure stable Continue telemetry monitoring Elevated with consulting pain management At this time patient is stable from cardiovascular standpoint. Cardiology team will sign off. Please reconsult us in case of any question Objective - Vital Signs Vital signs: Vital Signs Temp 98.1 F 07/04/23 16:35 Pulse 90 07/04/23 16:35 Resp 18 07/04/23 16:35 BP 113/71 07/04/23 16:35 Pulse Ox 93 L 07/04/23 09:15 FiO2 21 07/02/23 05:28 Intake & Output 07/04/23 07/04/23 07/05/23 06:59 18:59 06:59 Intake Total 500 120 Output Total 0 1075 Balance 500 -955 Intake: Intake, IV Titration 350 Amount Sodium Chloride 0.9% 1, 350 000 ml @ 50 mls/hr IV . Q20H [facility] Rx#:[id number] Oral 150 120 Output: Urine 1075 Stool 0 Other: Voiding Method Indwelling Catheter Indwelling Catheter - Labs CBC & Chem 7: 07/04/23 08:18 07/04/23 08:18 Labs: Abnormal Lab Results - Last 24 Hours (Table) 07/04/23 07/04/23 Range/Units 08:18 08:18 RBC 3.37 L (3.80-5.40) m/uL Hgb 11.1 L (11.4-16.0) gm/dL Hct 33.1 L (34.0-46.0) % Sodium 135 L (137-145) mmol/L Potassium 3.4 L (3.5-5.1) mmol/L Carbon Dioxide 21 L (22-30) mmol/L BUN 24 H (7-17) mg/dL Creatinine 0.47 L (0.52-1.04) mg/dL Glucose 108 H (74-99) mg/dL Calcium 8.0 L (8.4-10.2) mg/dL
[2023-07-04] MEDS: ATORVASTATIN 80 MG TAB PO SCH (20:55)
[2023-07-04] MEDS: SENNOSIDES-DOCUSATE SODIUM 1 EACH TAB PO SCH (20:57)
[2023-07-05] MEDS: QUEtiapine 25 MG TAB PO PRN (00:17)
[2023-07-05] MEDS: MELATONIN 5 MG TABLET PO SCH ×2 (00:51→22:28)
[2023-07-05] MEDS: SYMBICORT 160-4.5 MCG INHALER INHALATION SCH ×2 (08:27→20:38)
[2023-07-05] MEDS: APIXABAN 5 MG TAB PO SCH ×2 (09:51→22:28)
[2023-07-05] MEDS: POTASSIUM CHLORIDE ER 20 MEQ TAB.ER PO SCH (09:51)
[2023-07-05] MEDS: METOPROLOL TARTRATE 50 MG TAB PO SCH ×2 (09:51→22:32)
[2023-07-05] MEDS: PREGABALIN 75 MG CAP PO SCH ×2 (09:52→22:27)
[2023-07-05] MEDS: KETOROLAC 15 MG/ML 1 ML VIAL IVP PRN ×3 (09:52→22:30)
[2023-07-05] MEDS: DULoxetine HCL 30 MG CAPSULE.DR PO SCH (09:52)
[2023-07-05] MEDS: SENNOSIDES 8.6 MG TAB PO SCH (09:52)
[2023-07-05] MEDS: TAMSULOSIN 0.4 MG CAP.ER.24H PO SCH (09:52)
[2023-07-05] MEDS: PANTOPRAZOLE 40 MG/10 ML VIAL IVP SCH ×2 (09:53→22:28)
[2023-07-05] MEDS: polyethylene glycoL 3350 17 GM POWD.PACK PO SCH ×2 (10:12→22:29)
--- NOTE | 2023-07-05 11:42 | P.PN ---
Subjective Progress Note Date: 07/05/23 A pleasant 78 year female patient who presented status post fall with right intertrochanteric fracture with subsequent intramedullary hip screw fixation. Echocardiogram with Doppler study this admission showed an ejection fraction of 40-45% with no prior echocardiogram available at this time. Postoperatively she went into atrial fibrillation with rapid ventricular response. Beta sathish has been increased she remains in atrial fibrillation but her rate is controlled. Overall she's feeling unwell. No specific complaints. She is sore from her fall. Objective - Vital Signs Vital signs: Vital Signs Temp 98.0 F 07/05/23 11:15 Pulse 116 H 07/05/23 11:15 Resp 18 07/05/23 11:15 BP 89/60 07/05/23 11:15 Pulse Ox 98 07/05/23 11:15 FiO2 21 07/02/23 05:28 Intake & Output 07/04/23 07/05/23 07/05/23 18:59 06:59 18:59 Intake Total 120 Output Total 1075 500 Balance -955 -500 Intake: Oral 120 Output: Urine 1075 500 Other: Voiding Method Indwelling Catheter # Bowel Movements 0 - Exam PHYSICAL EXAMINATION: HEENT: Head is atraumatic, normocephalic. Pupils equal, round. Neck is supple. There is no elevated jugular venous pressure. HEART EXAMINATION: Heart sounds irregular rate and rhythm, S1 and S2 normal. No murmur or gallop heard. CHEST EXAMINATION: Lungs are clear to auscultation. No chest wall tenderness is noted on palpation or with deep breathing. ABDOMEN: Soft, nontender. Bowel sounds are heard. No organomegaly noted. EXTREMITIES: 1+ peripheral pulses with no evidence of peripheral edema and no calf tenderness noted. NEUROLOGIC patient is awake, alert and oriented x3. . - Labs CBC & Chem 7: 07/04/23 08:18 07/04/23 08:18 Assessment and Plan Assessment: #1 status post fall with subsequent right intramedullary hip screw fixation #2 cardiomyopathy, unspecified #3 new-onset atrial fibrillation with rapid ventricular response, heart rate reasonably well controlled at this time Plan: From cardiology's perspective medications were reviewed and will continue the same. Continue anticoagulation and beta sathish. At this time from our standpoint patient may be discharged. She will require outpatient follow-up with Dr. Underwood for further evaluation of the cardiomyopathy and to assess whether she is a candidate to attempt spiritism of sinus mechanism. EDUCATIONAL RESOURCE COORDINATOR note has been reviewed, I agree with a documented findings and plan of care. Patient was seen and examined.
[2023-07-05] MEDS: LIDOCAINE 5% PATCH TOPICAL SCH (12:14)
--- NOTE | 2023-07-05 12:46 | P.PAINPG ---
Objective - Vital Signs Vital signs: Vital Signs Temp 98.0 F 07/05/23 11:15 Pulse 116 H 07/05/23 11:15 Resp 18 07/05/23 11:15 BP 89/60 07/05/23 11:15 Pulse Ox 98 07/05/23 11:15 FiO2 21 07/02/23 05:28 Intake & Output 07/04/23 07/05/23 07/05/23 18:59 06:59 18:59 Intake Total 120 Output Total 1075 500 Balance -955 -500 Weight 53.5 kg Intake: Oral 120 Output: Urine 1075 500 Other: Voiding Method Indwelling Catheter # Bowel Movements 0 - Labs CBC & Chem 7: 07/04/23 08:18 07/04/23 08:18 PQRS Measure Charge Sheet Comment: HISTORY OF PRESENT ILLNESS: 78 yr old inpatient female presents today w severe and chronic R hip pain secondary to fracture s/p fall for evaluation. She underwent a R Hip IM Fixation approx 3 days ago. Pt states pain level is provoked at 9 /10 in intensity, constant, localized in the R hip, sharp/tender in character without shooting pain. Pain is provoked by any movement. Pain is alleviated by medications of which she has been given [place] 5/.25mg Q6H prn, Tramadol 50mg Q6H prn, Tyl 650mg Q6h prn, Toradol 15mg/mL IVP q6h prn, Lyrica 75mg PO BID, Lidoderm 5% QAM and Narcan as needed for opiate intoxication. Heat compresses work while hospitalized. She is making slow gains in inpatient rehab. She is looking for bah to being discharged from the hospital in 1 day. PMH: OA, Breast CA, COPD, HTN, Hx of RLE DVT, MDD/ Anxiety PSH: Lumbar surgery, Hysterectomy, R Hip IM Fixation SH: Former tobacco user, No ETOH use, No illicit drug use FH: Fa- Medical History Unknown All: See list Meds: See list REVIEW OF ORGAN SYSTEMS: CONSTITUTIONAL: No fevers or chills. No recent weight loss. NEUROLOGICAL: + numbness and tingling along the distal extremities. No seizure disorders or headaches. MUSCULOSKELETAL: + pain PSYCHIATRIC: Denies current depression or suicidal thoughts. Physical Examinations : Constitutional : Cooperative , not in acute distress . Neurologic : Cranial nerve II to XII intact. No focal neurological deficits. Psychiatric : alert & oriented x 3. Matching mood & appropriate affect. Judgment & insight intact. Musculoskeletal : Cervical Spine Motor strength in the deltoid and biceps: Normal right side. Normal Left side Motor strength biceps and the wrist extensors: Normal right side . Normal left side Motor strength in the triceps muscle: Normal right side. Normal left side Deep tendon reflexes: Normal at the biceps. Normal at Brachioradialis. Normal at triceps Vertebral body tenderness to deep palpation over Cervical facet loading test: positive bilaterally Spurling test: positive bilaterally Neck distraction test: positive bilaterally Sp sign: positive bilaterally Lumbar spine +R hip and thigh lateral inci sional scar intact, TTP, +edema, no weeping or purulent discharge Motor strength lower extremities ,thigh and legs 5/5 Right side , 5/5 Left side Deep tendon reflexes : Normal Knee Jerk. Normal Ankle Jerk Vertebral body tenderness over Caba Test positive Lumbar facet Loading Test: positive Right / positive Left Range of motion of the lumbar spine Flexion 30 degrees, extension 10 degrees Straight Leg Raise test: Left/ Right positive at degree Alexi test: positive right / positive left. Severe tenderness over the Sacroiliac joint on the Right / Left sides Gaenslen test: positive bilaterally Seated flexion test: positive bilaterally. Sacral spine : Severe tenderness over the Sacroiliac joint: right side / left side Range of motion: Flexion of the lumbar spine <60 degrees Range of motion: Extension of the lumbar spine <20 degrees Gaenslen's Test positive Lloyd's Test positive Alexi test: positive right side / left side Thigh Thrust Test Sacral Thrust Test Assessment/ Plan : R Hip IM Fixation s/p fracture due to fall Recommendation of medication management. [place] 5/325mg 1-2 tabs PO Q6h prn #42 NR. Use, side effects, adverse reactions and safe storage discussed. Pt acknowledged understanding. May return to clinic in 1 wks for a re evaluation. All questions answered. I have spent greater than 30 minutes on patient care today. Dr Alcala was available by phone for the evaluation of this patient. The time was used to review the medical records including relevant urine studies and Prescription history (MAPs), review of the available imaging, evaluation and examination of the patient, coordination of care with the medical staff and if applicable referring physicians, as well as creation of the medical record - Pain Location Right Leg Non-Pharmacological Interventions: Relaxation Technique Pharmacological Interventions: PRN Medication Back Non-Pharmacological Interventions: Darkened Room, Distraction, Heat, Ice Pharmacological Interventions: Discuss Pain Med Options PQRS Narrative: Blood Pressure [Right Arm] 89/60 Blood Pressure 134/86 Pain Intensity [Back] 7 Pain Intensity [Right Leg] 0 Pain Intensity 7 Pain Scale Used Numeric (1 - 10) Scale Used Numeric (1 - 10) Home Medications: Ambulatory Orders Apixaban [Eliquis] 5 mg PO BID 08/18/21 Furosemide [Lasix] 20 mg PO DAILY 08/18/21 Melatonin 5 mg PO HS 08/18/21 Albuterol Sulfate [Ventolin HFA] 2 puff INHALATION RT-Q6H PRN 06/26/23 Aspirin EC [Ecotrin Low Dose] 81 mg PO DAILY 06/26/23 Atorvastatin [Lipitor] 80 mg PO HS 06/26/23 Budesonide/Formoterol Fumarate [Symbicort 160-4.5 Mcg Inhaler] 2 puff INHALATION RT-BID 06/26/23 DULoxetine HCL [Cymbalta] 30 mg PO DAILY 06/26/23 Diclofenac Sodium Gel [Voltaren Gel] 2 - 4 gm TOPICAL QID PRN 06/26/23 Ergocalciferol [Vitamin D2 (1250 Mcg = 10092 Iu)] 1,250 mcg PO Q7D 06/26/23 Omeprazole 40 mg PO DAILY 06/26/23 Potassium Chloride [Klor-Con M20] 20 meq PO DAILY 06/26/23 Sennosides [Senokot] 8.6 mg PO DAILY 06/26/23 polyethylene glycoL 3350 [Miralax] 17 gm PO BID 06/26/23 Acetaminophen Tab [Tylenol] 650 mg PO Q6HR PRN tab 07/02/23 LORazepam [Ativan] 0.5 mg PO Q8H #3 tab 07/02/23 Lidocaine 5% Patch [Lidoderm 5% Patch] 1 patch TOPICAL DAILY patch 07/02/23 Metoprolol Tartrate [Lopressor] 50 mg PO BID tab 07/02/23 QUEtiapine [SEROquel] 12.5 mg PO HS PRN tab 07/02/23 Sennosides-Docusate Sodium [Senokot-S] 2 each PO HS tab 07/02/23 traMADol HCl [Ultram] 50 mg PO QID PRN #4 tab 07/02/23 Tamsulosin [Flomax] 0.4 mg PO PC-BRKFST cap 07/03/23 HYDROcodone/APAP 5-325MG [[place] 5-325] 1 - 2 tab PO Q6HR PRN 7 Days #42 tab 07/05/23 Controlled Substance Measures - Controlled Substance Measures Is patient prescribed a controlled substance at discharge?: Yes When asked, does pt state using other controlled substances?: Yes If prescribed controlled substance>3 days was MAPS reviewed?: Yes If opioid is for acute pain is fill amount 7 days or less?: Yes
[2023-07-05] MEDS: HYDROcodone/APAP 5-325MG 1 EACH TAB PO PRN (13:11)
[2023-07-05] MEDS: LORazepam 0.5 MG TAB PO PRN ×2 (13:11→22:32)
[2023-07-05] MEDS: SODIUM CHLORIDE 0.9% 1,000 ML IV SCH ×2 (13:19→17:27)
[2023-07-05 14:20] LABS: African American GFR (CKD) >90 (>60 ml/min/1.73 sqM); Anion Gap 7 mmol/L; Blood Urea Nitrogen 17 mg/dL (7-17); Calcium 8.6 mg/dL (8.4-10.2); Carbon Dioxide 18 mmol/L (22-30); Chloride 112 mmol/L (98-107); Glucose 101 mg/dL (74-99); Non-African American GFR(CKD) >90 (>60 ml/min/1.73 sqM); Potassium 3.6 mmol/L (3.5-5.1); Sodium 137 mmol/L (137-145)
[2023-07-05] MEDS: traMADol 50 MG TAB PO PRN (14:38)
--- NOTE | 2023-07-05 16:06 | P.PN ---
Subjective Progress Note Date: 07/05/23 Patient is evaluated resting in bed. She reports significant pain to the right leg surgical site, she is postoperative day #1 right IM hip screw fixation for the right intratrochanteric hip fracture. Patient seems reluctant to get up out of bed due to pain and did work with PT today with recommendations for subacute rehab. Patient does wear oxygen at home as needed and remains on 2 L of nasal cannula. She has no acute complaints at this time. Passing gas. Does need encouragement to use the spirometer. 06/29/2023 Patient is evaluated today sitting in bed. Patient has been confused and agitated with staff and family. Alert x 1 and thinks she is at home. Patient is postoperative day #2 right IM hip screw fixation. Patient continues to report pain to the right hip. Did work some with physical therapy and IDC has been removed today patient is able to stand and pivot to the bedside commode. Patient will require likely subacute rehab on discharge. Seroquel has been added for the acute agitation. Pulse oximeter decreasing and will order a chest xray. Patient needs encouragement to use the incentive spirometer. 06/30/2023 She is evaluated today resting in bed. Patient is having issues with swallowing and has been evaluated by speech therapy who felt this was an esophageal stage dysfunction and may be some reflux. Patient will undergo esophagram and if warranted Gen. surgery can perform an EGD. Unfortunately there is not a GI specialist available inpatient this week or next week. Patient was referred to GI outpatient for follow-up and has had this issue ongoing over the last 3 months she has not been able to f/u with GI outpatient as of yet. Patient remained agitated overnight today she is more sedated. Will cut back to night time only seroquel. Patient was unable to take her a.m. medications due to the regurgitation and went into atrial fibrillation with rapid RVR with heart rate up into the 120s which was confirmed by EKG. Patient is anticoagulated with eliquis due to history of DVT. We will recommend starting patient on IV Cardizem bolus and drip and transferred to 3 S. Cardiology is on consult and echocardiogram has been ordered. 07/01/2023 Patient is evaluated today resting in bed she is more awake alert her mentation seems to be improved. She received Seroquel at bedtime. Patient for swallowing issues underwent upper barium GI swallow today and will follow-up with the reports on this. She is asking for water. Patient is postoperative day 4 for r ight hip surgical repair for a fracture and pain has significantly improved. Her main complaint today is lower back pain. Additionally patient was transferred to the medical floor for new atrial fibrillation with rapid ventricular rate she was started on IV Cardizem drip which is now being discont inued. Labs reveal white count of 11.7, hemoglobin 10.9, sodium 133, potassium 3.2. Her kidney function is normal. 07/03/2023 Patient is evaluated today on the medical floor. Patient continues to report severe pain to the right hip, patient is post op right IM hip screw fixation. Dressing is intact no increased swelling noted to the right hip. Patient has positive pedal pulses. She is more awake alert mentation has improved. Appetite has also improved today. Patient reports eating breakfast about 50% and was sitting up in the chair. Patient was set to discharge to subacute rehab today however BP was on the lower side high 80s systolic. patient being gently hydrated and also metoprolol is being decreased. Echocardiogram has been resulted showing an EF of 40-45% with moderate MR and mod to severe TR, moderate pulmonary hypertension. 07/04/2023 Patient is evaluated on the medical floor mostly resting in bed. She continues with severe pain generalized and does report that she has a burning sensation throughout is mostly in her hands. Noted that patient was on Lyrica and gabapentin at home family states that she has been alternating between the 2 and is unsure which one she is supposed to be taking at this time. We will resume Lyrica 75 mg twice a day for the peripheral neuropathy and follow-up with her pain management. Patient went back into atrial fibrillation with a rapid ventricular rate heart rate up to 160 today she was resumed on an IV Cardizem drip by cardiology. Heart rate is currently in the low 100s remains in atrial fibrillation. She remains on 2 L of oxygen. Sodium level 135. Patient is being gently hydrated with normal saline at 50 mL per hour her blood pressure has improved into the 110s systolic. Potassium 3.4 today. 07/05/2023 Patient evaluated on the stepdown unit has been transitioned off IV Cardizem by cardiology, currently on increased dose of metoprolol. Blood pressure remains in the lower side 86/60. Sodium improved today to 137, potassium 3.6, BUN is 17, creatinine 0.45. Patient remains on normal saline at 50 mls/hr to be increa sed up to 75. Pain management has evaluated this patient and made discharged recommendations and will f/u in the office in 1 week. Review of Systems Constitutional: Reports fatigue, denies fever Cardio vascular: denied any chest pain, palpitations Gastrointestinal: Having difficulty swallowing with regurgitation, denies any abdominal pain no diarrhea no nausea. Pulmonary: Denied any shortness of breath cough Neurologic: Reports weakness. All inpatient medications were reviewed and appropriate changes in these medications as dictated in the interval history and assessment and plan. PHYSICAL EXAMINATION: GENERAL: The patient is alert and oriented 3, not in any acute distress. Well developed, well nourished. More awake. Anxious and tearful. HEENT: Pupils are round and equally reacting to light. EOMI. No scleral icterus. No conjunctival pallor. Normocephalic, atraumatic. No pharyngeal erythema. No thyromegaly. CARDIOVASCULAR: S1 and S2 present. No murmurs, rubs, or gallops. RVR with irregular rate and rhythm. PULMONARY: Chest is clear to auscultation, no wheezing or crackles. ABDOMEN: Soft, nontender, nondistended, normoactive bowel sounds. No palpable organomegaly. MUSCULOSKELETAL: No joint swelling or deformity. EXTREMITIES: No cyanosis, clubbing, or pedal edema. +2 pedal pulses bilaterally NEUROLOGICAL: Gross neurological examination did not reveal any focal deficits. Post surgical right hip dressing intact. Reports pain to the right ankle. SKIN: No rashes. Assessment Fall with right hip fracture status post IM hip screw fixation Right ankle pain with increased pain with mobility. New-onset atrial fibrillation with RVR improved with IV cardizem and now rate is controlled. Altered mental status due to acute delirium hospital-acquired resolved. Acute systolic heart failure EF 40-45% treated with IV lasix currently off IV lasix and being gently hydrated. Moderate pulmonary hypertension Peripheral neuropathy. Acute on chronic dysphagia and esophageal dysfunction History right lower extremity DVT anticoagulation with eliquis which has been resumed postsurgically Hypertension Hyperlipidemia COPD with no acute exacerbation and chronic hypoxic respiratory failure on home oxygen History of anxiety/depression Dvt prophylaxis anticoagulated with eliquis Gi prophylaxis full code Plan Metoprolol has been increased by cardiology, blood pressure remains low 90s systolic and patient is being hydrated. Continue to avoid the use of narcotics if possible and conservative management for pain with Tylenol. Continue Seroquel at bedtime as needed for agitation. Pain management has evaluated this patient recommending norco for pain mgt and will see patient in the clinic in 1 week for re-evaluation. Lyrica BID has been resumed patient is on this medication at home for peripheral neuropathy. Lyrica increased to 100 BID. Replace potassium and repeat labs in a.m. Patient unable to follow-up outpatient with GI having issues with chronic dysphagia and esophagram was ordered for further evaluation There is no GI services available in this hospital this week or next week for evaluation. Swallowing has improved patient to follow up with GI outpatient. Repeat labs in AM. Tentative D/C to rehab in the next 24 hours. The impression and plan of care has been dictated by Terese Andres Nurse Practitioner as directed. Dr. Keisha MD I have performed a history and physical examination and medical decision making of this patient, discussed the same with the dictator, and agree with the dictators assessment and plan as written, documented as a scribe. Based on total visit time, I have performed more than 50% of this visit. Objective - Vital Signs Vital signs: Vital Signs Temp 97.4 F L 07/05/23 12:00 Pulse 94 07/05/23 12:00 Resp 18 07/05/23 12:00 BP 86/60 07/05/23 12:00 Pulse Ox 96 07/05/23 12:00 FiO2 21 07/02/23 05:28 Intake & Output 07/04/23 07/05/23 07/05/23 18:59 06:59 18:59 Intake Total 120 Output Total 1075 500 400 Balance -955 -500 -400 Weight 53.5 kg Intake: Oral 120 Output: Urine 1075 500 400 Other: Voiding Method Indwelling Catheter # Bowel Movements 0 - Labs CBC & Chem 7: 07/04/23 08:18 07/05/23 08:11 Labs: Abnormal Lab Results - Last 24 Hours (Table) 07/05/23 Range/Units 08:11 Chloride 112 H (98-107) mmol/L Carbon Dioxide 18 L (22-30) mmol/L Creatinine 0.45 L (0.52-1.04) mg/dL Glucose 101 H (74-99) mg/dL Assessment and Plan Time with Patient: Greater than 30
--- NOTE | 2023-07-05 16:36 | XR ---
EXAMINATION TYPE: XR foot complete RT DATE OF EXAM: 07/05/2023 3:36 PM INDICATION: Patient age:Female; 78 years old; Reason for study: pain post fall; COMPARISON: None TECHNIQUE: The right foot was examined in the AP, oblique, and lateral projections. FINDINGS: No evidence of any acute osseous pathology. No evidence of soft tissue swelling. Multifocal degenera tion changes throughout the joints of the foot. Calcaneal plantar spurring and Achilles enthesophyte. IMPRESSION: No evidence of acute fracture.
[2023-07-05] MEDS: DULoxetine HCL 60 MG CAPSULE.DR PO SCH (17:22)
[2023-07-05] MEDS: ATORVASTATIN 80 MG TAB PO SCH (22:27)
[2023-07-05] MEDS: SENNOSIDES-DOCUSATE SODIUM 1 EACH TAB PO SCH (22:29)
[2023-07-06 03:49] VITALS: RESP 18
[2023-07-06] MEDS: SODIUM CHLORIDE 0.9% 1,000 ML IV SCH (05:22)
[2023-07-06] MEDS: SYMBICORT 160-4.5 MCG INHALER INHALATION SCH (08:43)
[2023-07-06 08:45] LABS: Anisocytosis Slight; Basophils % (A) 0 %; Eosinophils # (A) 0.3 k/uL (0-0.7); Eosinophils % (A) 3 %; HCT 32.7 % (34.0-46.0); HGB 10.6 gm/dL (11.4-16.0); Hypochromasia Moderate; Lymphocytes # (A) 1.9 k/uL (1.0-4.8); Lymphocytes % (A) 20 %; MCH 33.2 pg (25.0-35.0); MCHC 32.4 g/dL (31.0-37.0); MCV 102.6 fL (80.0-100.0); Macrocytosis Moderate; Mean Platelet Volume 9.1; Monocytes # (A) 0.4 k/uL (0-1.0); Monocytes % (A) 4 %; Neutrophils # (A) 6.8 k/uL (1.3-7.7); Neutrophils % (A) 72 %; Platelet Count 268 k/uL (150-450); Poikilocytosis Slight; RBC 3.19 m/uL (3.80-5.40); RDW 16.2 % (11.5-15.5); WBC 9.5 k/uL (3.8-10.6)
[2023-07-06 08:53] LABS: African American GFR (CKD) >90 (>60 ml/min/1.73 sqM); Blood Urea Nitrogen 15 mg/dL (7-17); Calcium 7.9 mg/dL (8.4-10.2); Carbon Dioxide 19 mmol/L (22-30); Glucose 112 mg/dL (74-99); Magnesium 1.8 mg/dL (1.6-2.3); Non-African American GFR(CKD) >90 (>60 ml/min/1.73 sqM)
[2023-07-06] MEDS ORDERED: Magnesium Replacement Protocol 1 EACH MISC MISCELLANE PRN (09:19)
[2023-07-06 09:41] LABS: Anion Gap 6 mmol/L; Chloride 110 mmol/L (98-107); Potassium 3.6 mmol/L (3.5-5.1); Sodium 135 mmol/L (137-145)
[2023-07-06] MEDS: LIDOCAINE 5% PATCH TOPICAL SCH (09:49)
[2023-07-06] MEDS: HYDROcodone/APAP 5-325MG 1 EACH TAB PO PRN (09:50)
[2023-07-06] MEDS: TAMSULOSIN 0.4 MG CAP.ER.24H PO SCH (09:50)
[2023-07-06] MEDS: PREGABALIN 75 MG CAP PO SCH (09:50)
[2023-07-06] MEDS: PANTOPRAZOLE 40 MG/10 ML VIAL IVP SCH (09:50)
[2023-07-06] MEDS: METOPROLOL TARTRATE 50 MG TAB PO SCH (09:50)
[2023-07-06] MEDS: POTASSIUM CHLORIDE ER 20 MEQ TAB.ER PO SCH (09:50)
[2023-07-06] MEDS: LORazepam 0.5 MG TAB PO PRN (09:50)
[2023-07-06] MEDS: polyethylene glycoL 3350 17 GM POWD.PACK PO SCH (09:51)
[2023-07-06] MEDS: SENNOSIDES 8.6 MG TAB PO SCH (09:51)
[2023-07-06] MEDS: DULoxetine HCL 60 MG CAPSULE.DR PO SCH (09:53)
[2023-07-06] MEDS ORDERED: MAGNESIUM SULFATE-D5W PMX 1 GM in DEXTROSE/WATER 1 100ML.BAG IVPB ONE (10:00)
--- NOTE | 2023-07-06 11:33 | P.DS ---
Providers Date of admission: 06/26/23 14:12 Attending physician: Miriam Honeycutt MD Consults: 06/26/23 12:39 Consult Physician Urgent Consulting Provider: Abhijit Pitts Consult Reason/Comments: Right intertrochanteric fracture Do you want consulting provider notified?: Already Contacted 06/26/23 12:46 Consult Physician Urgent Consulting Provider: Guicho Underwood Consult Reason/Comments: Surgical clearance, on eliquis and oxygen Do you want consulting provider notified?: Yes 06/30/23 12:35 Consult Physician Routine Consulting Provider: Zachary Merchant Consult Reason/Comments: NOS afib with RVR Do you want consulting provider notified?: Yes Primary care physician: Pablo Borges MD Hospital Course: Final Diagnosis Final Diagnosis Fall with right hip fracture status post IM hip screw fixation Urinary retention with indwelling catheter can complete voiding trial at rehab. New-onset atrial fibrillation with RVR currently rate controlled Troponin elevation likely due to the atrial fibrillation with RVR. Altered mental status due to acute delirium hospital-acquired and exacerbated by narcotics. resolved. Acute heart failure elevated proBNP with cardiomyopathy unspecified. Acute on chronic dysphagia and esophageal dysfunction after GI showing presbyesophagus and possible ulceration of the gastric pylorus/duodenal bulb History right lower extremity DVT anticoagulation with eliquis which has been resumed postsurgically Hypertension Hyperlipidemia COPD with no acute exacerbation and chronic hypoxic respiratory failure on home oxygen History of anxiety/depression Dvt prophylaxis anticoagulated with eliquis Gi prophylaxis full code Discharge Disposition Patient stable for discharge to subacute rehab at [facility] for subacute rehab. Patient continues on oral anticoagulation. Patient being followed by cardiology for NOS afib with RVR. Patient is on a beta sathish, heart rate is now controlled. Is on a mechanical soft diet, and appetite has improved with pain control. Pain management has evaluated this patient and recommended discharge on norco. Patient is alternating this with tramadol and also no lyrica BID. Cymbalta has been increased. Patient also has lidocaine patch in place. Recommend the patient follows up with GI services on discharge. Patient in addition to pain management to follow up with Dr. Underwood in 1 week, Dr. Meli Delacruz with GI services, Orthopedics Dr. Pitts and PCP Dr. Pablo Borges. Patient can discharge with indwelling catheter in place and can complete voiding trial at rehab and follow up with urology if there are any complications. Repeat labs in 2 to 3 days. Hospital Course 77-year-old female who presents to the emergency department for a fall. Patient as medical history of hypertension, hyperlipidemia, DVT, respiratory failure. Patient is a transfer from [facility], where she was evaluated earlier today after a fall. She had lost her balance last night, when she fell and landed on her right hip. EMS was called because she was unable to get back up. She was found to have a femur fracture, and was subsequently transferred here for intervention. Patient is on Eliquis for prior DVT. She is also on oxygen at home. Additionally, patient did break her back 10 months ago and is continuing to deal with pain from that as well. Hip x-ray reveals right intertrochanteric fracture. Patient is admitted for further evaluation and treatment via orthopedic service. Patient was cleared for surgery by cardiology and medicine. On 06/27/2023 patient underwent right intramedullary hip screw fixation for the right intratrochanteric hip fracture. Postoperatively patient became confused and per family this happened after her prior orthopedic surgery as well. s also hag i with swallowing and having regurgitation sheis was of vomiting. Per family she has been worked up extensively for an outpatient including a barium swallow and upper endoscopy and was recommended to see GI services outpatient however they have been unable to get in with Dr. Delacruz. Unfortunately during this hospital stay GI services are available. Patient underwent an upper GI barium swallow study which shows small outpouching noted at the level of the gastric pylorus/duodenal bulb which could reflect a small ulceration and there is also presbyesophagus. Patient went into atrial fibrillation with rapid ventricular rate during this hospital stay and was transferred to the cardiac unit, an echocardiogram is completed which shows reduced LV function to 40-45% with moderate pulmonary hypertension. Patient also had troponin elevation. Cardiology was consulted for this and patient was started on IV Cardizem and heart rate has improved down to the 100s remains in atrial fibrillation. And an elevated proBNP is 5480 however cardiology felt the patient is not in active heart failure. Patient remains on 2 L of oxygen, patient is afebrile, blood pressure is low normal. Patient is on oral metoprolol and heart rate is now controlled. Patient is awake alert and oriented mentation has improved her bowels are moving. Patient does have low appetite, however this has improved with pain management. Patient may better when she was sitting up in the chair. Needs encouragement to eat. Currently denies chest pain denies shortness of breath no nausea vomiting or diarrhea currently she is tolerating diet. Her lungs are clear, S1-S2 auscultated, abdomen soft nontender she has no peripheral edema and the dressing is intact and dry to the right hip. Recommendations as above. Patient will be discharged to subacute rehab. Please see medication reconciliation for list of current medication. Thank you for allowing us to participate in the care of this patient. The impression and plan of care has been dictated by Terese Andres, Nurse Practitioner as directed. Dr. Keisha MD I have performed a history and physical examination and medical decision making of this patient, discussed the same with the dictator, and agree with the dictators assessment and plan as written, documented as a scribe. Based on total visit time, I have performed more than 50% of this visit. Patient Condition at Discharge: Stable Plan - Discharge Summary Discharge Rx Participant: Yes New Discharge Prescriptions: New Lidocaine 5% Patch [Lidoderm 5% Patch] 1 patch TOPICAL DAILY patch Metoprolol Tartrate [Lopressor] 50 mg PO BID tab Sennosides-Docusate Sodium [Senokot-S] 2 each PO HS tab traMADol HCl [Ultram] 50 mg PO QID PRN #4 tab PRN Reason: Pain DULoxetine HCL [Cymbalta] 60 mg PO DAILY cap QUEtiapine [SEROquel] 12.5 mg PO HS PRN tab PRN Reason: Agitation Or Acute Anxiety Acetaminophen Tab [Tylenol] 650 mg PO Q6HR PRN tab PRN Reason: Mild Pain Or Fever > 100.5 Tamsulosin [Flomax] 0.4 mg PO PC-BRKFST cap HYDROcodone/APAP 5-325MG [[place] 5-325] 1 - 2 tab PO Q6HR PRN 7 Days #42 tab PRN Reason: Pain Pregabalin [Lyrica] 75 mg PO BID #4 cap Continue Melatonin 5 mg PO HS Furosemide [Lasix] 20 mg PO DAILY Ergocalciferol [Vitamin D2 (1250 Mcg = 58118 Iu)] 1,250 mcg PO Q7D polyethylene glycoL 3350 [Miralax] 17 gm PO BID Omeprazole 40 mg PO DAILY Diclofenac Sodium Gel [Voltaren Gel] 2 - 4 gm TOPICAL QID PRN PRN Reason: Pain Atorvastatin [Lipitor] 80 mg PO HS LORazepam [Ativan] 0.5 mg PO Q8H #3 tab Apixaban [Eliquis] 5 mg PO BID Sennosides [Senokot] 8.6 mg PO DAILY Budesonide/Formoterol Fumarate [Symbicort 160-4.5 Mcg Inhaler] 2 puff INHALATION RT-BID Potassium Chloride [Klor-Con M20] 20 meq PO DAILY Aspirin EC [Ecotrin Low Dose] 81 mg PO DAILY Albuterol Sulfate [Ventolin HFA] 2 puff INHALATION RT-Q6H PRN PRN Reason: Shortness Of Breath Discontinued HYDROcodone/APAP 7.5-325MG [[place] 7.5-325] 1 - 1.5 tab PO Q6H PRN PRN Reason: Pain DULoxetine HCL [Cymbalta] 30 mg PO DAILY Metoprolol Succinate (ER) [Toprol Xl] 100 mg PO DAILY Discharge Medication List Apixaban [Eliquis] 5 mg PO BID 08/18/21 [History] Furosemide [Lasix] 20 mg PO DAILY 08/18/21 [History] Melatonin 5 mg PO HS 08/18/21 [History] Albuterol Sulfate [Ventolin HFA] 2 puff INHALATION RT-Q6H PRN 06/26/23 [History] Aspirin EC [Ecotrin Low Dose] 81 mg PO DAILY 06/26/23 [History] Atorvastatin [Lipitor] 80 mg PO HS 06/26/23 [History] Budesonide/Formoterol Fumarate [Symbicort 160-4.5 Mcg Inhaler] 2 puff INHALATION RT-BID 06/26/23 [History] Diclofenac Sodium Gel [Voltaren Gel] 2 - 4 gm TOPICAL QID PRN 06/26/23 [History] Ergocalciferol [Vitamin D2 (1250 Mcg = 01107 Iu)] 1,250 mcg PO Q7D 06/26/23 [History] Omeprazole 40 mg PO DAILY 06/26/23 [History] Potassium Chloride [Klor-Con M20] 20 meq PO DAILY 06/26/23 [History] Sennosides [Senokot] 8.6 mg PO DAILY 06/26/23 [History] polyethylene glycoL 3350 [Miralax] 17 gm PO BID 06/26/23 [History] Acetaminophen Tab [Tylenol] 650 mg PO Q6HR PRN tab 07/02/23 [Rx] LORazepam [Ativan] 0.5 mg PO Q8H #3 tab 07/02/23 [Rx] Lidocaine 5% Patch [Lidoderm 5% Patch] 1 patch TOPICAL DAILY patch 07/02/23 [ Rx] Metoprolol Tartrate [Lopressor] 50 mg PO BID tab 07/02/23 [Rx] QUEtiapine [SEROquel] 12.5 mg PO HS PRN tab 07/02/23 [Rx] Sennosides-Docusate Sodium [Senokot-S] 2 each PO HS tab 07/02/23 [Rx] traMADol HCl [Ultram] 50 mg PO QID PRN #4 tab 07/02/23 [Rx] Tamsulosin [Flomax] 0.4 mg PO PC-BRKFST cap 07/03/23 [Rx] HYDROcodone/APAP 5-325MG [[place] 5-325] 1 - 2 tab PO Q6HR PRN 7 Days #42 tab 07/05/23 [Rx] DULoxetine HCL [Cymbalta] 60 mg PO DAILY cap 07/06/23 [Rx] Pregabalin [Lyrica] 75 mg PO BID #4 cap 07/06/23 [Rx] Follow up Appointment(s)/Referral(s): Guicho Underwood MD [STAFF PHYSICIAN] - 1 Week Laney Delacruz MD [STAFF PHYSICIAN] - 1 Week Andra Alcala MD [STAFF PHYSICIAN] - 1 Week Pablo Borges MD [Primary Care Provider] - 1-2 days Abhijit Pitts MD [STAFF PHYSICIAN] - 07/14/23 1:45 pm Ambulatory/Diagnostic Orders: Basic Metabolic Panel [LAB.AMB] Location: None Selected Complete Blood Count w/diff [LAB.AMB] Time Frame: 3 Days, Location: None Selected Activity/Diet/Wound Care/Special Instructions: touchdown weightbear with walker keep wound clean and dry may shower in 3 days ly out on or about POD #12 Continue with indwelling catheter for urinary retention and can complete voiding trial at rehab Recommend to see a urologist outpatient as well Recommend sitting up in chairs for all meals Continue with oral pain medication and lidocaine patch for pain management Pain management services has evaluated this patient recommending norco 5 1 to 2 tablets and to follow up in the pain clinic in 1 week for re-evaluation. Discharge Disposition: TRANSFER TO SNF/ECF
[2023-07-06 11:39] VITALS: TEMP 98
[2023-07-06 12:17] VITALS: BP 75/55; PULSE 111
[2023-07-06] MEDS: APIXABAN 5 MG TAB PO SCH (12:56)
[2023-07-06] MEDS: traMADol 50 MG TAB PO PRN (12:57)
[2023-07-06] MEDS ORDERED: MIDODRINE 5 MG TAB PO PRN (13:18)
== END 2023-07-06 14:37 | DRG 480 ==
LOC: EC 12:02 → SUPCPDRO 12:02 → 4SSUR 14:12 → 3SCARD 06-30 14:32
PROVIDERS: ADMIT Internal Medicine; ATTEND Internal Medicine
PROC: 0QSB36Z Reposition Right Lower Femur with Intramedullary Internal Fixation Device, Percutaneous Approach (ICD-10-PCS; principal; 2023-06-27 11:30)
DX: S72.141A Displaced intertrochanteric fracture of right femur, initial encounter for closed fracture (principal); I50.21 Acute systolic (congestive) heart failure; I42.9 Cardiomyopathy, unspecified; J96.11 Chronic respiratory failure with hypoxia; F11.921 Opioid use, unspecified with intoxication delirium; R13.10 Dysphagia, unspecified; K22.89 Other specified disease of esophagus; J44.9 Chronic obstructive pulmonary disease, unspecified; E78.5 Hyperlipidemia, unspecified; F32.A Depression, unspecified; F41.9 Anxiety disorder, unspecified; G62.9 Polyneuropathy, unspecified; I08.1 Rheumatic disorders of both mitral and tricuspid valves; I11.0 Hypertensive heart disease with heart failure; I27.20 Pulmonary hypertension, unspecified; I48.91 Unspecified atrial fibrillation; R77.8 Other specified abnormalities of plasma proteins; T40.605A Adverse effect of unspecified narcotics, initial encounter; R41.0 Disorientation, unspecified; K25.9 Gastric ulcer, unspecified as acute or chronic, without hemorrhage or perforation; K26.9 Duodenal ulcer, unspecified as acute or chronic, without hemorrhage or perforation; Z99.81 Dependence on supplemental oxygen; I49.3 Ventricular premature depolarization; Z79.01 Long term (current) use of anticoagulants; Z79.51 Long term (current) use of inhaled steroids; Z79.82 Long term (current) use of aspirin; Z79.899 Other long term (current) drug therapy; Z85.3 Personal history of malignant neoplasm of breast; Z86.718 Personal history of other venous thrombosis and embolism; Z87.891 Personal history of nicotine dependence; Z28.311 Partially vaccinated for COVID-19; Z71.3 Dietary counseling and surveillance; Z87.81 Personal history of (healed) traumatic fracture
CPT/HCPCS: 36415; 71045; 71046; 73501; 73502; 80048; 80053; 81003; 83735; 83880; 84484; 85025; 85610; 85730; 93005; 93306; 94640; 94760; 96374; 96376; 99285

== ENCOUNTER 2024-10-25 10:38 | Inpatient (IN) | payer MEDICARE, BC ==
--- NOTE | 2024-10-25 11:14 | ED ---
SOB HPI - General Chief Complaint: Shortness of Breath Stated Complaint: hypoxia Time Seen by Provider: 10/25/24 10:50 Source: patient Mode of arrival: EMS - History of Present Illness Initial Comments: 79-year-old female presents to the emergency department from [facility]. Patient has been there for 5 days. She was recently hospitalized at [facility] in [place] for A-fib and heart failure. She was transferred to rehab facility 5 days ago. Today the patient was more short of breath. Staff say that she has been quite uncooperative. She does wear 4 L nasal cannula at all times. Oxygenation was reported to be 89 to 92% on her 4 L. No report of any fevers, chills or cough. She is on Lasix and has been taking the medications. Patient also takes Eliquis for her A-fib. No report of any chest pain. No nausea or vomiting. No other alleviating, precipitating or modifying factors - Related Data Home Medications Medication Instructions Recorded Confirmed Apixaban [Eliquis] 5 mg PO BID@09,209908/18/21 10/29/24 Melatonin 3 mg PO HS@209910/25/24 10/29/24 Omeprazole [PriLOSEC] 20 mg PO HS@209910/25/24 10/29/24 Sennosides/Docusate Sodium [Senna 1 tab PO BID@899,209910/25/24 10/29/24 Plus 8.6-50 mg Tablet] Sertraline [Zoloft] 100 mg PO DAILY@89910/25/24 10/29/24 Budesonide-Formot 160-4.5 Mcg 2 puff INHALATION RT-BID@899,209910/29/24 10/29/24 [Symbicort 160-4.5 Mcg Inhaler] Dapagliflozin Propanediol [Farxiga] 10 mg PO DAILY@0910/29/24 10/29/24 Furosemide [Lasix] 40 mg PO BID@0600,1300 10/29/24 10/29/24 Ipratropium-Albuterol Nebulize 3 ml INHALATION RT-QID@09,13,17,21 10/29/24 10/29/24 [Duoneb 0.5 mg-3 mg/3 ml Soln] Metoprolol Tartrate [Lopressor] 50 mg PO BID@0900,2099 10/29/24 10/29/24 Pregabalin [Lyrica] 75 mg PO BID@0900,2100 10/29/24 10/29/24 Previous Rx's Medication Instructions Recorded HYDROcodone/APAP 5-325MG [[place] 1 tab PO Q8H PRN #4 tab 10/27/24 5-325] Allergies Allergy/AdvReac Type Severity Reaction Status Date / Time cephalexin [From Keflex] Allergy Unknown Verified 10/29/24 13:26 cinnamon Allergy Anaphylaxis Verified 10/29/24 19:03 Penicillins Allergy Swelling Verified 10/29/24 09:06 Review of Systems ROS Statement: Those systems with pertinent positive or pertinent negative responses have been documented in the HPI. ROS Other: All systems not noted in ROS Statement are negative. Past Medical History Past Medical History: Cancer, COPD, Hypertension Additional Past Medical History / Comment(s): R leg DVT, breast CA, History of Any Multi-Drug Resistant Organisms: None Reported Past Surgical History: Hysterectomy Past Anesthesia/Blood Transfusion Reactions: No Reported Reaction Past Psychological History: Anxiety, Depression Smoking Status: Former smoker Past Alcohol Use History: None Reported Past Drug Use History: None Reported - Past Family History Father History Unknown: Yes General Exam General appearance: alert, in no apparent distress Head exam: Present: atraumatic, normocephalic, normal inspection Eye exam: Present: normal appearance, PERRL, EOMI. Absent: scleral icterus, con junctival injection, periorbital swelling ENT exam: Present: normal exam, mucous membranes moist Neck exam: Present: normal inspection. Absent: tenderness, meningismus, lymphadenopathy Respiratory exam: Present: rales. Absent: respiratory distress, wheezes, rhonchi, stridor Cardiovascular Exam: Present: regular rate, normal rhythm, normal heart sounds. Absent: systolic murmur, diastolic murmur, rubs, gallop, clicks GI/Abdominal exam: Present: soft, diminished bowel sounds. Absent: distended, tenderness, guarding, rebound, rigid Extremities exam: Present: normal inspection, full ROM, normal capillary refill. Absent: tenderness, pedal edema, joint swelling, calf tenderness Back exam: Present: normal inspection Neurological exam: Present: alert, oriented X3, CN II-XII intact Psychiatric exam: Present: normal affect, normal mood Skin exam: Present: warm, dry, intact, normal color. Absent: rash Course Vital Signs 10/25/24 10/25/24 10/25/24 10:44 15:00 15:33 Temperature 97.9 F Pulse Rate 83 78 101 H Respiratory 20 20 18 Rate Blood Pressure 99/73 99/70 O2 Sat by Pulse 93 L 93 L Oximetry 10/25/24 10/25/24 10/25/24 15:42 17:00 19:44 Temperature Pulse Rate 102 H 98 99 Respiratory 18 20 Rate Blood Pressure 99/65 O2 Sat by Pulse 94 L Oximetry 10/25/24 19:59 Temperature Pulse Rate 100 Respiratory Rate Blood Pressure O2 Sat by Pulse Oximetry Medical Decision Making - Medical Decision Making Was pt. sent in by a medical professional or institution (KAY Fernandes, WATCH REPAIRER APPRENTICE, urgent care, hospital, or senior living...) When possible be specific @ -No Did you speak to anyone other than the patient for history (EMS, parent, family, police, friend...)? What history was obtained from this source @ -Spoke with and EMS for history Did you review nursing and triage notes (agree or disagree)? Why? @ -I reviewed and agree with nursing and triage notes Were old charts reviewed (outside hosp., previous admission, EMS record, old EKG, old radiological studies, urgent care reports/EKG's, senior living records)? Report findings @ -I reviewed the paperwork from patient's ECF Differential Diagnosis (chest pain, altered mental status, abdominal pain women, abdominal pain men, vaginal bleeding, weakness, fever, dyspnea, syncope, headache, dizziness, GI bleed, back pain, seizure, CVA, palpatations, mental health, musculoskeletal)? @ -Differential Dyspnea: Coronary syndrome, arrhythmia, tamponade, asthma, COPD, pulmonary embolism, pneumonia, pneumothorax, pulmonary effusion, anaphylaxis, diabetic ketoacidosis, flailed chest, pulmonary contusion, diaphragmatic rupture, anemia, neuromuscular, this is not meant to be an all-inclusive list. EKG interpreted by me (3pts min.). @ -Yes and demonstrates A-fib with a rate of 87. QRS 113. QTc of 427. No acute ST segment elevations or depressions X-rays interpreted by me (1pt min.). @ -Yes and demonstrates pulmonary vascular congestion CT interpreted by me (1pt min.). @ -None done U/S interpreted by me (1pt. min.). @ -None done What testing was considered but not performed or refused? (CT, X-rays, U/S, labs)? Why? @ -None What meds were considered but not given or refused? Why? @ -None Did you discuss the management of the patient with other professionals (professionals i.e. Dr., PA, WATCH REPAIRER APPRENTICE, lab, RT, psych nurse, child welfare social worker, storekeeper engineering, teacher, chairman president and chief executive officer, foster care case manager)? Give summary @ -Spoke with Dr. savage for the admission Was smoking cessation discussed for >3mins.? @ -No Was critical care preformed (if so, how long)? @ -No Were there social determinants of health that impacted care today? How? (Homelessness, low income, unemployed, alcoholism, drug addiction, trans portation, low edu. Level, literacy, decrease access to med. care, alf, rehab)? @ -No Was there de-escalation of care discussed even if they declined (Discuss DNR or withdrawal of care, Hospice)? DNR status @ -No What co-morbidities impacted this encounter? (DM, HTN, Smoking, COPD, CAD, Cancer, CVA, ARF, Chemo, Hep., AIDS, mental health diagnosis, sleep apnea, morbid obesity)? @ -Congestive heart failure, A-fib Was patient admitted / discharged? Hospital course, mention meds given and route, prescriptions, significant lab abnormalities, going to OR and other pertinent info. @ -Upon arrival patient seen and evaluated in room 9. Thorough history and physical exam was performed. IV was established. Laboratory studies are conducted. Chest x-ray was performed. I discussed the case with Dr. Savage who will admit the patient Undiagnosed new problem with uncertain prognosis? @ -No Drug Therapy requiring intensive monitoring for toxicity (Heparin, Nitro, Insulin, Cardizem)? @ -No Were any procedures done? @ -No Diagnosis/symptom? @Acute dyspnea, acute exacerbation of CHF Acute, or Chronic, or Acute on Chronic? @ -Acute Uncomplicated (without systemic symptoms) or Complicated (systemic symptoms)? @ -Complicated Side effects of treatment? @ -No Exacerbation, Progression, or Severe Exacerbation? @ -Yes Poses a threat to life or bodily function? How? (Chest pain, USA, ND, pneumonia, PE, COPD, DKA, ARF, appy, cholecystitis, CVA, Diverticulitis, Homicidal, Suicidal, threat to staff... and all critical care pts) @ -No - Lab Data Result diagrams: 10/27/24 06:58 10/27/24 06:58 Lab Results 10/25/24 10/25/24 10/25/24 Range/Units 12:33 12:33 12:33 WBC 12.7 H (3.8-10.6) k/uL RBC 5.21 (3.80-5.40) m/uL Hgb 14.9 (11.4-16.0) gm/dL Hct 46.5 H (34.0-46.0) % MCV 89.3 (80.0-100.0) fL MCH 28.6 (25.0-35.0) pg MCHC 32.1 (31.0-37.0) g/dL RDW 15.8 H (11.5-15.5) % Plt Count 175 (150-450) k/uL MPV 7.9 Immature Gran % (Auto) % Absolute Nucleated RBC % Neutrophils % 81 % Lymphocytes % 13 % Monocytes % 5 % Eosinophils % 1 % Basophils % 0 % Immature Gran # (0.00-0.04) X 10*3/uL Neutrophils # 10.2 H (1.3-7.7) k/uL Lymphocytes # 1.6 (1.0-4.8) k/uL Monocytes # 0.6 (0-1.0) k/uL Eosinophils # 0.1 (0-0.7) k/uL Basophils # 0.0 (0-0.2) k/uL NRBC/100 WBC Diff (0.00-0.01) X 10*3/uL Hypochromasia Moderate Poikilocytosis Slight PT 14.9 H (10.0-12.5) sec INR 1.4 H (<1.2) APTT 29.2 (22.0-30.0) sec D-Dimer (<0.60) mg/L FEU Sodium 135 L (137-145) mmol/L Potassium 3.8 (3.5-5.1) mmol/L Chloride 103 (98-107) mmol/L Carbon Dioxide 22 (22-30) mmol/L Anion Gap 10 mmol/L BUN 22 H (7-17) mg/dL Creatinine 0.61 (0.52-1.04) mg/dL Est GFR (CKD-EPI) (>=60) Est GFR (CKD-EPI)AfAm >90 (>60 ml/min/1.73 sqM) Est GFR (CKD-EPI)NonAf 88 (>60 ml/min/1.73 sqM) BUN/Creatinine Ratio (12.00-20.00) Ratio Glucose 113 H (74-99) mg/dL Plasma Lactic Acid Nishant (0.7-2.0) mmol/L Calcium 8.4 (8.4-10.2) mg/dL Total Bilirubin 2.6 H (0.2-1.3) mg/dL AST 39 H (14-36) U/L ALT 23 (4-34) U/L Alkaline Phosphatase 114 (38-126) U/L Troponin I (0.000-0.034) ng/mL NT-Pro-B Natriuret Pep 6400 pg/mL Total Protein 6.1 L (6.3-8.2) g/dL Albumin 3.5 (3.5-5.0) g/dL Globulin (1.6-3.3) g/dL Albumin/Globulin Ratio (1.60-3.17) Ratio Influenza Type A (PCR) (Not Detectd) Influenza Type B (PCR) (Not Detectd) RSV (PCR) (Not Detectd) SARS-CoV-2 (PCR) (Not Detectd) 10/25/24 10/25/24 10/25/24 Range/Units 12:33 12:33 12:33 WBC (3.8-10.6) k/uL RBC (3.80-5.40) m/uL Hgb (11.4-16.0) gm/dL Hct (34.0-46.0) % MCV (80.0-100.0) fL MCH (25.0-35.0) pg MCHC (31.0-37.0) g/dL RDW (11.5-15.5) % Plt Count (150-450) k/uL MPV Immature Gran % (Auto) % Absolute Nucleated RBC % Neutrophils % % Lymphocytes % % Monocytes % % Eosinophils % % Basophils % % Immature Gran # (0.00-0.04) X 10*3/uL Neutrophils # (1.3-7.7) k/uL Lymphocytes # (1.0-4.8) k/uL Monocytes # (0-1.0) k/uL Eosinophils # (0-0.7) k/uL Basophils # (0-0.2) k/uL NRBC/100 WBC Diff (0.00-0.01) X 10*3/uL Hypochromasia Poikilocytosis PT (10.0-12.5) sec INR (<1.2) APTT (22.0-30.0) sec D-Dimer 0.53 (<0.60) mg/L FEU Sodium (137-145) mmol/L Potassium (3.5-5.1) mmol/L Chloride (98-107) mmol/L Carbon Dioxide (22-30) mmol/L Anion Gap mmol/L BUN (7-17) mg/dL Creatinine (0.52-1.04) mg/dL Est GFR (CKD-EPI) (>=60) Est GFR (CKD-EPI)AfAm (>60 ml/min/1.73 sqM) Est GFR (CKD-EPI)NonAf (>60 ml/min/1.73 sqM) BUN/Creatinine Ratio (12.00-20.00) Ratio Glucose (74-99) mg/dL Plasma Lactic Acid Nishant 2.0 (0.7-2.0) mmol/L Calcium (8.4-10.2) mg/dL Total Bilirubin (0.2-1.3) mg/dL AST (14-36) U/L ALT (4-34) U/L Alkaline Phosphatase (38-126) U/L Troponin I 0.015 (0.000-0.034) ng/mL NT-Pro-B Natriuret Pep pg/mL Total Protein (6.3-8.2) g/dL Albumin (3.5-5.0) g/dL Globulin (1.6-3.3) g/dL Albumin/Globulin Ratio (1.60-3.17) Ratio Influenza Type A (PCR) (Not Detectd) Influenza Type B (PCR) (Not Detectd) RSV (PCR) (Not Detectd) SARS-CoV-2 (PCR) (Not Detectd) 10/25/24 10/26/24 10/26/24 Range/Units 21:30 05:58 05:58 WBC 7.77 (3.8-10.6) k/uL RBC 4.82 (3.80-5.40) m/uL Hgb 13.4 (11.4-16.0) gm/dL Hct 42.7 (34.0-46.0) % MCV 88.6 (80.0-100.0) fL MCH 27.8 (25.0-35.0) pg MCHC 31.4 L (31.0-37.0) g/dL RDW 17.0 H (11.5-15.5) % Plt Count 165 (150-450) k/uL MPV 11.1 Immature Gran % (Auto) 0.40 % Absolute Nucleated RBC 0 % Neutrophils % 67.1 % Lymphocytes % 23.3 % Monocytes % 8.0 % Eosinophils % 0.8 % Basophils % 0.4 % Immature Gran # 0.03 (0.00-0.04) X 10*3/uL Neutrophils # 5.22 (1.3-7.7) k/uL Lymphocytes # 1.81 (1.0-4.8) k/uL Monocytes # 0.62 (0-1.0) k/uL Eosinophils # 0.06 (0-0.7) k/uL Basophils # 0.03 (0-0.2) k/uL NRBC/100 WBC Diff 0 (0.00-0.01) X 10*3/uL Hypochromasia Poikilocytosis PT (10.0-12.5) sec INR (<1.2) APTT (22.0-30.0) sec D-Dimer (<0.60) mg/L FEU Sodium 144 (137-145) mmol/L Potassium 3.1 L (3.5-5.1) mmol/L Chloride 104 (98-107) mmol/L Carbon Dioxide 23.7 (22-30) mmol/L Anion Gap 16.30 H mmol/L BUN 20.3 (7-17) mg/dL Creatinine 0.7 (0.52-1.04) mg/dL Est GFR (CKD-EPI) 89 (>=60) Est GFR (CKD-EPI)AfAm (>60 ml/min/1.73 sqM) Est GFR (CKD-EPI)NonAf (>60 ml/min/1.73 sqM) BUN/Creatinine Ratio 29.00 H (12.00-20.00) Ratio Glucose 101 (74-99) mg/dL Plasma Lactic Acid Nishant (0.7-2.0) mmol/L Calcium 8.3 L (8.4-10.2) mg/dL Total Bilirubin 1.8 H (0.2-1.3) mg/dL AST 24 (14-36) U/L ALT 19 (4-34) U/L Alkaline Phosphatase 101 (38-126) U/L Troponin I (0.000-0.034) ng/mL NT-Pro-B Natriuret Pep pg/mL Total Protein 5.6 L (6.3-8.2) g/dL Albumin 3.4 L (3.5-5.0) g/dL Globulin 2.2 (1.6-3.3) g/dL Albumin/Globulin Ratio 1.55 L (1.60-3.17) Ratio Influenza Type A (PCR) Not Detected (Not Detectd) Influenza Type B (PCR) Not Detected (Not Detectd) RSV (PCR) Not Detected (Not Detectd) SARS-CoV-2 (PCR) Not Detected (Not Detectd) Disposition Clinical Impression: Congestive heart failure, Acute respiratory insufficiency Disposition: ADMITTED IP TO THIS [facility] Condition: Fair Is patient prescribed a controlled substance at d/c from ED?: No Time of Disposition: 14:35 Decision to Admit Reason: Admit from EC Decision Date: 10/25/24 Decision Time: 14:35
[2024-10-25 12:47] LABS: Basophils % (A) 0 %; Eosinophils # (A) 0.1 k/uL (0-0.7); Eosinophils % (A) 1 %; HCT 46.5 % (34.0-46.0); HGB 14.9 gm/dL (11.4-16.0); Hypochromasia Moderate; Lymphocytes # (A) 1.6 k/uL (1.0-4.8); Lymphocytes % (A) 13 %; MCH 28.6 pg (25.0-35.0); MCHC 32.1 g/dL (31.0-37.0); MCV 89.3 fL (80.0-100.0); Mean Platelet Volume 7.9; Monocytes # (A) 0.6 k/uL (0-1.0); Monocytes % (A) 5 %; Neutrophils # (A) 10.2 k/uL (1.3-7.7); Neutrophils % (A) 81 %; Platelet Count 175 k/uL (150-450); Poikilocytosis Slight; RBC 5.21 m/uL (3.80-5.40); RDW 15.8 % (11.5-15.5); WBC 12.7 k/uL (3.8-10.6)
[2024-10-25 13:04] LABS: INR 1.4 (<1.2); Partial Thromboplastin Time 29.2 sec (22.0-30.0); Prothrombin Time 14.9 sec (10.0-12.5)
[2024-10-25 13:07] LABS: ALT 23 U/L (4-34); African American GFR (CKD) >90 (>60 ml/min/1.73 sqM); Albumin 3.5 g/dL (3.5-5.0); Anion Gap 10 mmol/L; Blood Urea Nitrogen 22 mg/dL (7-17); Calcium 8.4 mg/dL (8.4-10.2); Carbon Dioxide 22 mmol/L (22-30); Chloride 103 mmol/L (98-107); Glucose 113 mg/dL (74-99); Non-African American GFR(CKD) 88 (>60 ml/min/1.73 sqM); Sodium 135 mmol/L (137-145); Total Bilirubin 2.6 mg/dL (0.2-1.3); Total Protein 6.1 g/dL (6.3-8.2)
[2024-10-25 13:08] LABS: AST 39 U/L (14-36); Alkaline Phosphatase 114 U/L (38-126); Potassium 3.8 mmol/L (3.5-5.1)
[2024-10-25 13:16] LABS: NT-Pro-B-Type Natriuretic Pept 6400 pg/mL
--- NOTE | 2024-10-25 13:25 | XR ---
EXAMINATION TYPE: XR chest 2V DATE OF EXAM: 10/25/2024 12:50 PM COMPARISON: Chest radiographs from 06/29/2023 CLINICAL INDICATION: Female, 79 years old with history of difficulty breathing; [facility] TECHNIQUE: XR chest 2V Frontal and lateral views of the chest. FINDINGS: Lungs/Pleura: There is no evidence of pleural effusion, focal consolidation, or pneumothorax. Pulmonary vascularity: Pulmonary vascular congestion. Heart/mediastinum: Cardiomediastinal silhouette is enlarged and stable. Musculoskeletal: No acute osseous pathology. Vertebral plasty changes in the spine. IMPRESSION: Cardiomegaly and mild pulmonary vascular congestion. Correlate with BNP for congestive heart failure. [facility], , 10/25/2024 1:22 PM
[2024-10-25] MEDS ORDERED: NALOXONE 0.4 MG/ML 1 ML VIAL IV PRN (14:35)
[2024-10-25] MEDS: APIXABAN 5 MG TAB PO SCH (15:22)
[2024-10-25] MEDS: FUROSEMIDE 10 MG/ML 4 ML VIAL IV SCH (15:22)
[2024-10-25] MEDS: IPRATROPIUM-ALBUTEROL 3 ML NEB INHALATION SCH (15:33)
[2024-10-25] MEDS: SYMBICORT 160-4.5 MCG INHALER INHALATION SCH (19:43)
[2024-10-25] MEDS: SENNOSIDES-DOCUSATE SODIUM 1 EACH TAB PO SCH (22:38)
[2024-10-25] MEDS: MELATONIN 3 MG TABLET PO SCH (22:38)
[2024-10-25] MEDS: METOPROLOL TARTRATE 25 MG TAB PO SCH (22:41)
[2024-10-25] MEDS: PREGABALIN 75 MG CAP PO SCH (23:21)
[2024-10-26] MEDS: HYDROcodone/APAP 5-325MG 1 EACH TAB PO PRN (00:21)
--- NOTE | 2024-10-26 01:28 | HP ---
HISTORY AND PHYSICAL CHIEF COMPLAINT: Shortness of breath and hypoxia. HISTORY OF PRESENT ILLNESS: This 79-year-old woman with a past history of multiple medical problems, COPD, hypertension, and right leg DVT, was admitted to [facility] on the [address] after referred from outside [facility]. The patient also had history of atrial fibrillation, being worked up in the outpatient setting. Currently, the patient has shortness of breath, pulse ox 88%. Chest x-ray showed cardiomegaly and pulmonary venous congestion. The patient will be admitted for further evaluation. There is no any history of fever, rigors, or chills. PAST MEDICAL HISTORY: COPD, hypertension, history of DVT, and atrial fibrillation. Rest of the chart is also reviewed. HOME MEDICATIONS: Reviewed include hydrocodone. Dose and rest of medications reviewed. ALLERGIES: Penicillin. FAMILY HISTORY: No history of heart disease or strokes in the family. SOCIAL HISTORY: No history of smoking or alcohol intake. REVIEW OF SYSTEMS: A 14-point review is negative except as mentioned. PHYSICAL EXAMINATION: VITAL SIGNS: Pulse is 83, blood pressure 90/73, and respirations 20. HEENT: Conjunctivae normal. NECK: No JVD. CARDIOVASCULAR: S1, S2 muffled. RESPIRATION: Breath sounds diminished at the bases. Few scattered rhonchi. ABDOMEN: Soft and nontender. LEGS: No edema. NERVOUS SYSTEM: Nonfocal. SKIN: No ulcer, rash, bleeding. JOINTS: No active deforming arthropathy. LABORATORY DATA: WBC 12.7 and BNP is ntd. ASSESSMENT: 1. Shortness of breath, possibly chronic obstructive pulmonary disease and congestive heart failure with acute exacerbation. 2. Elevated WBC. 3. History of atrial fibrillation. 4. History of breast cancer. 5. History of deep vein thrombosis. 6. Anxiety, depression. RECOMMENDATIONS AND DISCUSSION: This 79-year-old woman, presented with multiple complex medical issues, we will monitor the patient closely. I would recommend intensive bronchodilator, small dose of diuretics, Cardiology and Pulmonology consultations. Complete workup including 2D echo with Doppler. White count is slightly elevated. We will run the viral panels and cultures, and further recommendations to follow. UA is not available. NT- proBNP is elevated. Troponin is normal. See orders for details. MMODL / IJN: [id number] / MTDD
--- NOTE | 2024-10-26 06:19 | P.CNPUL ---
History of Present Illness Consult date: 10/26/24 Requesting physician: Danica Saucedo Reason for consult: COPD Chief complaint: Shortness of breath History of present illness: Patient is a 79-year-old white female with past medical history significant for heart failure, atrial fibrillation, COPD, chronic hypoxemic respiratory failure on 3 L/min 31/05, former tobacco dependence, chronic lower back pain. Her primary care provider is Dr. Borges out of [place]. Of note, patient was recently discharged from [facility]. She was admitted there with heart failure and atrial fibrillation. Discharged to rehab at [facility]. While at the facility, she has become more short of breath and has had increased lower extremity swelling. She endorses orthopnea. She states she does take Lasix. Denies infectious-like symptoms. Denies fevers, chills, cough, sputum production, chest pain. Does reportedly have history of COPD. Normally uses an as needed albuterol inhaler at home. Is chronically oxygen dependent on 3 L/min nasal cannula. Chest x-ray showing cardiomegaly with pulmonary vascular congestion. No focal infiltrates, pleural effusions, or pneumothoraces. CBC: WBC count 12.7, hemoglobin 14.9, hematocrit 46.5, platelets 175. D-dimer 0.53. CMP is unremarkable. Electrolytes WDL. NT proBNP elevated at 6400. EKG: Atr ial fibrillation with controlled ventricular response, rate 87 bpm, incomplete RBBB pattern. She is anticoagulated on Eliquis. Negative for influenza, RSV, COVID. Patient is currently being evaluated on the cardiac observation unit. She is on 5 L/min nasal cannula. She is in no acute distress. She has significant pitting lower extremity edema. Bibasilar rales on auscultation. Currently receiving Lasix 40 mg daily. Review of Systems Constitutional: Reports weight gain, Denies chills, Denies fever, Denies poor appetite, Denies weight loss Ears, nose, mouth and throat: Denies headache, Denies nasal congestion, Denies nasal discharge, Denies post-nasal drip, Denies sinus pain, Denies sinus pressure, Denies sore throat Cardiovascular: Reports dyspnea on exertion, Reports leg edema, Reports orthop naa, Reports shortness of breath, Denies chest pain, Denies palpitations, Denies paroxysmal nocturnal dyspnea Respiratory: Reports dyspnea, Reports home oxygen, Denies congestion, Denies cough, Denies cough with sputum, Denies hemoptysis, Denies wheezing Gastrointestinal: Denies abdominal pain, Denies diarrhea, Denies nausea, Denies vomiting Genitourinary: Denies dysuria Musculoskeletal: Denies limitation of motion Integumentary: Denies rash Neurological: Denies seizures, Denies syncope Psychiatric: Denies anxiety, Denies depression Past Medical History Past Medical History: Cancer, COPD, Hypertension Additional Past Medical History / Comment(s): R leg DVT, breast CA, History of Any Multi-Drug Resistant Organisms: None Reported Past Surgical History: Hysterectomy Past Anesthesia/Blood Transfusion Reactions: No Reported Reaction Past Psychological History: Anxiety, Depression Smoking Status: Former smoker Past Alcohol Use History: None Reported Past Drug Use History: None Reported - Past Family History Father History Unknown: Yes Medications and Allergies Home Medications Medication Instructions Recorded Confirmed Type Apixaban [Eliquis] 5 mg PO Q12H 08/18/21 10/25/24 History Pregabalin [Lyrica] 75 mg PO BID #4 cap 07/06/23 10/25/24 Rx Furosemide [Lasix] 40 mg PO DAILY 10/25/24 10/25/24 History HYDROcodone/APAP 5-325MG [[place] 1 tab PO Q8H PRN 10/25/24 10/25/24 History 5-325] Melatonin 3 mg PO HS 10/25/24 10/25/24 History Metoprolol Tartrate [Lopressor] 25 mg PO BID 10/25/24 10/25/24 History Omeprazole [PriLOSEC] 20 mg PO DAILY 10/25/24 10/25/24 History Sennosides/Docusate Sodium [Senna 1 tab PO BID 10/25/24 10/25/24 History Plus 8.6-50 mg Tablet] Sertraline [Zoloft] 100 mg PO DAILY 10/25/24 10/25/24 History Allergies Allergy/AdvReac Type Severity Reaction Status Date / Time Penicillins Allergy Swelling Verified 10/25/24 11:51 Physical Exam Vitals: Vital Signs Temp Pulse Pulse Resp BP BP Pulse Ox 10/26/24 01:25 96 19 10/26/24 00:07 98.2 F 103 H 20 137/70 90 L 10/25/24 21:50 97.8 F 96 19 125/81 89 L 10/25/24 19:59 100 10/25/24 19:44 99 10/25/24 17:00 98 20 99/65 94 L 10/25/24 15:42 102 H 18 10/25/24 15:33 101 H 18 10/25/24 15:00 78 20 99/70 93 L 10/25/24 10:44 97.9 F 83 20 99/73 93 L Intake and Output 10/25/24 10/25/24 10/26/24 14:59 22:59 06:59 Output Total 1200 Balance -1200 Output: Urine 1200 Other: Voiding Method Diaper Diaper Incontinent Incontinent External Catheter External Catheter Weight 67.5 kg 67.5 kg GENERAL EXAM: Alert, 79-year-old white female, lying in a semi-Fowlers position, not in any acute distress HEAD: Normocephalic and atraumatic EYES: Normal reaction of pupils, equal size. NOSE: Clear with pink turbinates. THROAT: No erythema or exudates. NECK: No masses, no JVD. CHEST: No chest wall deformity. LUNGS: Equal air entry with bibasilar inspiratory rales. No wheezes, rhonchi, focal dullness on 5 L/min nasal cannula, no conversational dyspnea or accessory muscle use while at rest CVS: S1 and S2 normal with systolic murmur, irregular rhythm. No other extra heart sounds ABDOMEN: No hepatosplenomegaly, active bowel sounds, no guarding or rigidity. SPINE: No scoliosis or deformity SKIN: No rashes CENTRAL NERVOUS SYSTEM: No focal deficits, tone is normal in all 4 extremities. EXTREMITIES: There is bilateral lower extremity 4+ pitting edema. No clubbing, or cyanosis. Peripheral pulses are intact. Results - Laboratory Findings CBC and BMP: 10/26/24 05:58 10/26/24 05:58 PT/INR, D-dimer PT 14.9 sec (10.0-12.5) H 10/25/24 12:33 INR 1.4 (<1.2) H 10/25/24 12:33 D-Dimer 0.53 mg/L FEU (<0.60) 10/25/24 12:33 Abnormal lab findings: Abnormal Labs 10/25/24 10/25/24 10/25/24 12:33 12:33 12:33 WBC 12.7 H Hct 46.5 H RDW 15.8 H Neutrophils # 10.2 H PT 14.9 H INR 1.4 H Sodium 135 L BUN 22 H Glucose 113 H Total Bilirubin 2.6 H AST 39 H Total Protein 6.1 L - Diagnostic Findings Chest x-ray: image reviewed Assessment and Plan Assessment: Acute CHF exacerbation; chest x-ray showing cardiomegaly with pulmonary vascular congestion, NT proBNP 6400 Acute on chronic hypoxemic respiratory failure, secondary to above History of heart failure with reduced ejection fraction, most recent echocardiogram from June, estimated left ventricular ejection fraction of 40 to 45% along with moderate mitral regurgitation and moderate to severe tricuspid regurgitation Chronic obstructive pulmonary disease, appears stable on my evaluation Former tobacco dependence Chronic hypoxemic respiratory failure, normally maintained on 3 L/min nasal cannula Atrial fibrillation with controlled ventricular response, anticoagulated on Eliquis History of DVT Chronic lumbar back pain History of right proximal femur intertrochanteric fracture, status post right IM hip screw fixation History of breast cancer Plan: Patient's medications, labs, chest x-ray reviewed Patient continue supplemental oxygen maintain oxygen saturation 92% or greater Increase Lasix 40 mg to twice daily Echocardiogram is pending Eliquis has already been resumed Negative for influenza, RSV, COVID Continue as needed bronchodilators We will continue to follow you know remember that 10/26/2024, the patient is being seen in a joint evaluation along with the nurse practitioner. The patient was hospitalized for acute decompensated heart failure. The patient is currently on diuretics. Her chest x-ray was consistent with CHF on pulm vessel congestion/edema. proBNP level was elevated and the patient is responding nicely to diuretics. She is known to have COPD along with CHF with right-sided heart failure and severe pulmonary hypertension. No significant leukocytosis. Renal function stable. Oxygenation is stable. She is on Symbicort, DuoNeb nebulized treatments [id number] and she is currently on IV Lasix 40 mg every 12 hours. Continue same treatment. Will continue to follow. Echocardiogram is pending. I have personally seen and examined the patient, performed the documentation and the assessment and plan as written. Number of minutes spent on the visit:2023, I am seeing this patient in April for evaluation Time with Patient: Greater than 30
[2024-10-26] MEDS: PANTOPRAZOLE 40 MG TABLET PO SCH (08:41)
[2024-10-26] MEDS: SERTRALINE 100 MG TAB PO SCH (08:41)
[2024-10-26] MEDS: METOPROLOL TARTRATE 50 MG TAB PO SCH (08:41)
[2024-10-26] MEDS: DAPAGLIFLOZIN PROPANEDIOL 10 MG TABLET PO SCH (08:41)
[2024-10-26] MEDS: FUROSEMIDE 10 MG/ML 4 ML VIAL IV SCH (08:42)
[2024-10-26 08:53] LABS: Basophils # (A) 0.03 X 10*3/uL (0.00-0.10); Basophils % (A) 0.4 %; Eosinophils # (A) 0.06 X 10*3/uL (0.04-0.35); Eosinophils % (A) 0.8 %; HCT 42.7 % (37.2-46.3); HGB 13.4 g/dL (12.0-15.0); Lymphocytes # (A) 1.81 X 10*3/uL (0.90-5.00); Lymphocytes % (A) 23.3 %; MCH 27.8 pg (27.0-32.0); MCHC 31.4 g/dL (32.0-37.0); MCV 88.6 FL (80.0-97.0); Mean Platelet Volume 11.1 FL (9.5-12.2); Monocytes # (A) 0.62 X 10*3/uL (0.20-1.00); NRBC Per 100 WBC 0 X 10*3/uL (0.00-0.01); Neutrophils # (A) 5.22 X 10*3/uL (1.80-7.70); Neutrophils % (A) 67.1 %; Platelet Count 165 X 10*3/uL (140-440); RBC 4.82 X 10*6/uL (4.10-5.20); WBC 7.77 X 10*3/uL (4.50-10.00)
--- NOTE | 2024-10-26 09:21 | P.CRDCN ---
History of Present Illness History of present illness: HISTORY OF PRESENT ILLNESS: This is a 79-year-old female with a past medical history significant for COPD, chronic hypoxic respiratory failure on home oxygen, congestive heart failure, at rial fibrillation, and former nicotine dependence. Patient does not follow with a curriculum advisory teacher. We have been asked to see the patient in consultation for congestive heart failure. Patient examined at the bedside. Patient's family is at the bedside. Patient presented to the hospital to chief complaint of shortness of breath and increased lower extremity edema. She denies any chest pain or pressure. Denies palpitations. Denies dizziness or lightheadedness. Patient was found to be in acute congestive heart failure and was started on IV Lasix. Telemetry reveals atrial fibrillation with a heart rate around 100. DIAGNOSTICS: - EKG not available at the time of this dictation - Chest xray cardiomegaly mild pulmonary vascular congestion - Laboratory data: WBC 7.77. Hemoglobin 13.4. Platelet count 165. D-dimer 0.53. Sodium 135. Potassium 3.8. BUN 22. Creatinine 0.61. Troponin negative x 1. proBNP 6400. - Current home cardiac medications include Eliquis 5 mg twice a day, Lasix 40 mg daily, metoprolol tartrate 25 mg twice a day - Most recent echocardiogram obtained in 2022 revealed ejection fraction 40 to 45%, moderate pulmonary hypertension, moderate mitral regurgitation and moderate to severe tricuspid regurgitation - Cardiac catheterization history: unknown REVIEW OF SYSTEMS: At the time of my exam: CONSTITUTIONAL: Denies fever or chills. HEENT: Denies blurred vision, vision changes, or eye pain. Denies hemoptysis CARDIOVASCULAR: Denies chest pain. Denies orthopnea. Denies PND. Denies palpitations RESPIRATORY: Denies shortness of breath. GASTROINTESTINAL: Denies abdominal pain. Denies nausea or vomiting. HEMATOLOGIC: Denies bleeding disorders. GENITOURINARY: Denies any blood in urine. SKIN: Denies pruitis. Denies rash. PHYSICAL EXAM: VITAL SIGNS: Reviewed. GENERAL: Well-developed in no acute distress. HEENT: Head is normocephalic. Pupils are equal, round. Sclerae anicteric. Mucous membranes of the mouth are moist. Neck supple. No JVD or thyromegaly LUNGS: Respirations even and unlabored. Lungs essentially clear to auscultation bilaterally. HEART: Irregular rate and rhythm. S1 and S2 heard. + systolic murmur ABDOMEN: Soft. Nondistended. Nontender. EXTREMITIES: Normal range of motion. No clubbing or cyanosis. Peripheral pulses intact. Bilateral lower extremity edema noted. NEUROLOGIC: Awake and alert. Oriented x 3. ASSESSMENT: Shortness of breath Acute on chronic congestive heart failure with reduced with EF Persistent atrial fibrillation COPD Chronic hypoxic respiratory failure on home oxygen Former nicotine dependence PLAN: Obtain 2D echo to assess cardiac structure and function Increase metoprolol to tartrate to 50 mg twice a day Continue IV Lasix 40 mg every 12 hours Daily weights, accurate intake and output, and monitoring of kidney function Add Farxiga 10 mg daily Obtain EKG Continue telemetry monitoring Further recommendations pending patient course Nurse practitioner note has been reviewed by physician. Signing provider agrees with the documented findings, assessment, and plan of care documented by MEDIA MARKETING COORDINATOR as a scribe. Past Medical History Past Medical History: Cancer, COPD, Hypertension Additional Past Medical History / Comment(s): R leg DVT, breast CA, History of Any Multi-Drug Resistant Organisms: None Reported Past Surgical History: Hysterectomy Past Anesthesia/Blood Transfusion Reactions: No Reported Reaction Past Psychological History: Anxiety, Depression Smoking Status: Former smoker Past Alcohol Use History: None Reported Past Drug Use History: None Reported - Past Family History Father History Unknown: Yes Medications and Allergies Home Medications Medication Instructions Recorded Confirmed Type Apixaban [Eliquis] 5 mg PO Q12H 08/18/21 10/25/24 History Pregabalin [Lyrica] 75 mg PO BID #4 cap 07/06/23 10/25/24 Rx Furosemide [Lasix] 40 mg PO DAILY 10/25/24 10/25/24 History HYDROcodone/APAP 5-325MG [[place] 1 tab PO Q8H PRN 10/25/24 10/25/24 History 5-325] Melatonin 3 mg PO HS 10/25/24 10/25/24 History Metoprolol Tartrate [Lopressor] 25 mg PO BID 10/25/24 10/25/24 History Omeprazole [PriLOSEC] 20 mg PO DAILY 10/25/24 10/25/24 History Sennosides/Docusate Sodium [Senna 1 tab PO BID 10/25/24 10/25/24 History Plus 8.6-50 mg Tablet] Sertraline [Zoloft] 100 mg PO DAILY 10/25/24 10/25/24 History Allergies Allergy/AdvReac Type Severity Reaction Status Date / Time Penicillins Allergy Swelling Verified 10/25/24 11:51 Physical Exam Vitals: Vital Signs Temp Pulse Pulse Resp BP BP Pulse Ox 10/26/24 08:24 100 10/26/24 08:14 90 L 10/26/24 08:10 96 10/26/24 07:00 98.2 F 116 H 20 114/83 92 L 10/26/24 01:25 96 19 10/26/24 00:07 98.2 F 103 H 20 137/70 90 L 10/25/24 21:50 97.8 F 96 19 125/81 89 L 10/25/24 19:59 100 10/25/24 19:44 99 10/25/24 17:00 98 20 99/65 94 L 10/25/24 15:42 102 H 18 10/25/24 15:33 101 H 18 10/25/24 15:00 78 20 99/70 93 L 10/25/24 10:44 97.9 F 83 20 99/73 93 L Intake and Output 10/25/24 10/26/24 10/26/24 22:59 06:59 14:59 Output Total 1200 Balance -1200 Output: Urine 1200 Other: Voiding Method Diaper Diaper Incontinent Incontinent External Catheter External Catheter # Bowel Movements 1 Weight 67.5 kg 63.5 kg Results 10/26/24 05:58 10/25/24 12:33 Cardiac Enzymes 10/25/24 10/25/24 Range/Units 12:33 12:33 AST 39 H (14-36) U/L Troponin I 0.015 (0.000-0.034) ng/mL Coagulation 10/25/24 Range/Units 12:33 PT 14.9 H (10.0-12.5) sec APTT 29.2 (22.0-30.0) sec CBC 10/25/24 10/26/24 Range/Units 12:33 05:58 WBC 12.7 H 7.77 (3.8-10.6) k/uL RBC 5.21 4.82 (3.80-5.40) m/uL Hgb 14.9 13.4 (11.4-16.0) gm/dL Hct 46.5 H 42.7 (34.0-46.0) % Plt Count 175 165 (150-450) k/uL Comprehensive Metabolic Panel 10/25/24 Range/Units 12:33 Sodium 135 L (137-145) mmol/L Potassium 3.8 (3.5-5.1) mmol/L Chloride 103 (98-107) mmol/L Carbon Dioxide 22 (22-30) mmol/L BUN 22 H (7-17) mg/dL Creatinine 0.61 (0.52-1.04) mg/dL Glucose 113 H (74-99) mg/dL Calcium 8.4 (8.4-10.2) mg/dL AST 39 H (14-36) U/L ALT 23 (4-34) U/L Alkaline Phosphatase 114 (38-126) U/L Total Protein 6.1 L (6.3-8.2) g/dL Albumin 3.5 (3.5-5.0) g/dL Current Medications Generic Name Dose Route Start Last Admin Trade Name Freq PRN Reason Stop Dose Admin Hydrocodone Bitart/Acetaminophen 1 each 10/25/24 14:20 10/26/24 00:21 Hydrocodone/Apap 5-325mg 1 Each Tab PO 1 each Q8H PRN Administration Pain Albuterol/Ipratropium 3 ml 10/25/24 14:30 10/26/24 08:09 Ipratropium-Albuterol 3 Ml Neb INHALATION 3 ml RT-QID BRYANT Administration Apixaban 5 mg 10/25/24 14:30 10/26/24 08:41 Apixaban 5 Mg Tab PO 5 mg BID BRYANT Administration Protocol Budesonide/Formoterol Fumarate 2 puff 10/25/24 20:00 10/26/24 08:09 Symbicort 160-4.5 Mcg Inhaler INHALATION 2 puff RT-BID BRYANT Administration Dapagliflozin 10 mg 10/26/24 09:00 10/26/24 08:41 Dapagliflozin Propanediol 10 Mg Tablet PO 10 mg DAILY BRYANT Administration Furosemide 40 mg 10/26/24 09:00 10/26/24 08:42 Furosemide 10 Mg/Ml 4 Ml Vial IV 40 mg Q12HR BRYANT Administration Melatonin 3 mg 10/25/24 21:00 10/25/24 22:38 Melatonin 3 Mg Tablet PO Not Given HS BRYANT Metoprolol Tartrate 50 mg 10/26/24 09:00 10/26/24 08:41 Metoprolol Tartrate 50 Mg Tab PO 50 mg BID BRYANT Administration Naloxone HCl 0.2 mg 10/25/24 14:35 Naloxone 0.4 Mg/Ml 1 Ml Vial IV Q2M PRN Opioid Reversal Pantoprazole Sodium 40 mg 10/26/24 09:00 10/26/24 08:41 Pantoprazole 40 Mg Tablet PO 40 mg DAILY BRYANT Administration Pregabalin 75 mg 10/25/24 21:00 10/26/24 08:41 Pregabalin 75 Mg Cap PO 75 mg BID BRYANT Administration Senna/Docusate Sodium 1 each 10/25/24 21:00 10/26/24 08:41 Sennosides-Docusate Sodium 1 Each Tab PO 1 each BID BRYANT Administration Sertraline HCl 100 mg 10/26/24 09:00 10/26/24 08:41 Sertraline 100 Mg Tab PO 100 mg DAILY BRYANT Administration Intake and Output 10/25/24 10/26/24 10/26/24 22:59 06:59 14:59 Output Total 1200 Balance -1200 Output: Urine 1200 Other: Voiding Method Diaper Diaper Incontinent Incontinent External Catheter External Catheter # Bowel Movements 1 Weight 67.5 kg 63.5 kg Patient Weight 10/27/24 06:59 Weight 63.5 kg 10/26/24 05:58 10/25/24 12:33
[2024-10-26 10:14] LABS: ALT 19 U/L (8-44); AST 24 U/L (13-35); Albumin 3.4 g/dL (3.8-4.9); Albumin/Globulin Ratio 1.55 Ratio (1.60-3.17); Alkaline Phosphatase 101 U/L (41-126); Blood Urea Nitrogen 20.3 mg/dL (9.0-27.0); Calcium 8.3 mg/dL (8.7-10.3); Carbon Dioxide 23.7 mmol/L (21.6-31.8); Chloride 104 mmol/L (96-109); Globulin 2.2 g/dL (1.6-3.3); Glucose 101 mg/dL (70-110); Potassium 3.1 mmol/L (3.5-5.5); Sodium 144 mmol/L (135-145); Total Bilirubin 1.8 mg/dL (0.3-1.2); Total Protein 5.6 g/dL (6.2-8.2)
--- NOTE | 2024-10-26 11:36 | CA ---
Transthoracic Echo Report Name: Nuzhat Zayas Age: 79 Gender: F : 1945 Exam Date: 10/26/2024 09:57 Exam Location: [facility] Ht (in): 60 Wt (lb): 148 Ordering Physician: Bart Hinojosa MD Attending/Referring Phys: Foundry Superintendant Marissa Pinto RDCS Procedure CPT: Indications: chf Cardiac Hx: Technical Quality: Fair Contrast 1: Total Dose (mL): Contrast 2: Total Dose (mL): MEASUREMENTS (Male / Female) Normal Values 2D ECHO LV Diastolic Diameter PLAX 4.8 cm 4.2 - 5.9 / 3.9 - 5.3 cm LV Systolic Diameter PLAX 3.2 cm IVS Diastolic Thickness 0.9 cm 0.6 - 1.0 / 0.6 - 0.9 cm LVPW Diastolic Thickness 1.1 cm 0.6 - 1.0 / 0.6 - 0.9 cm LV Relative Wall Thickness 0.4 LVOT Diameter 1.9 cm LA Volume 91.9 cm??? 18 - 58 / 22 - 52 cm??? LA Volume Index 53.8 cm???/m??? 16 - 28 cm???/m??? Ascending Aorta Diameter 3.3 cm DOPPLER AV Peak Velocity 87.3 cm/s AV Peak Gradient 3.0 mmHg AV Mean Velocity 61.6 cm/s AV Mean Gradient 1.7 mmHg AV Velocity Time Integral 11.9 cm LVOT Peak Velocity 65.2 cm/s LVOT Peak Gradient 1.7 mmHg LVOT Velocity Time Integral 8.4 cm LVOT Stroke Volume 23.6 cm??? LVOT Stroke Volume Index 14.4 ml/m??? LVOT Cardiac Index 1258.4 cm???/min???m??? AV Area Cont Eq vti 2.0 cm??? AV Area Cont Eq pk 2.1 cm??? TR Peak Velocity 328.6 cm/s TR Peak Gradient 43.2 mmHg Right Atrial Pressure 20.0 mmHg Pulmonary Artery Systolic Pressu 63.2 mmHg Right Ventricular Systolic Press 63.2 mmHg PV Peak Velocity 58.4 cm/s PV Peak Gradient 1.4 mmHg FINDINGS Left Ventricle Left ventricular ejection fraction is estimated at 55-60 %. Mildly increased posterior wall thickness. Left ventricular cavity size normal. D-shaped interventricular septum. Right Ventricle Severe right ventricular dilatation with severely reduced function. Severe pulmonary hypertension. Right Atrium Severe right atrial dilatation. Left Atrium Severely increased left atrial volume. Mildly increased left atrial area. Mitral Valve Structurally normal mitral valve. Mild mitral annular calcification. No evidence for mitral valve prolapse. No mitral stenosis. Mild mitral regurgitation. Aortic Valve Trileaflet aortic valve. No aortic valve stenosis or regurgitation. Tricuspid Valve Structurally normal tricuspid valve. No tricuspid stenosis. Moderate tricuspid regurgitation. Pulmonic Valve Pulmonic valve not well visualized. No pulmonic stenosis. Mild pulmonic regurgitation. Pericardium Small pericardial effusion. Aorta Normal size aortic root and proximal ascending aorta. CONCLUSIONS Normal LV systolic function Severe dilated patient of the right ventricle Severe pulmonary hypertension RV systolic dysfunction Moderate tricuspid regurgitation Mild mitral regurgitation Previewed by: Dr. Sam Delacruz MD (Electronically Signed) Final Date: 26 October 2024 11:35
[2024-10-26] MEDS ORDERED: Potassium Replacement Protocol 1 EACH MISC MISCELLANE PRN (14:11)
--- NOTE | 2024-10-27 08:40 | PN ---
PROGRESS NOTE DATE OF SERVICE: 10/26/2024 SUBJECTIVE: This is a 79-year-old woman, who was admitted with shortness of breath, COPD exacerbation, is being closely monitored. A 2D echo done by Cardiology showed ejection fraction of 55% to 60%, severe pulmonary hypertension. PHYSICAL EXAMINATION: VITAL SIGNS: Pulse is 94, blood pressure 140/80, and respirations 20. CHEST: A few scattered rhonchi and crackles. ABDOMEN: Soft. NERVOUS SYSTEM: Nonfocal. LABORATORY DATA: Reviewed. ASSESSMENT: 1. Shortness of breath, possibly combination of chronic obstructive pulmonary disease and congestive heart failure with acute exacerbation. 2. Elevated WBC. 3. History of atrial fibrillation. 4. History of breast cancer. 5. History of deep vein thrombosis. 6. Anxiety, depression. RECOMMENDATIONS: I recommend to continue the current medications and continue symptomatic treatment. Continue with cautious diuresis, bronchodilators. Repeat labs in the morning. Guarded prognosis because of multiple complex medical issues and further recommendations to follow. MMODL / IJN: [id number] /
[2024-10-27] MEDS: FUROSEMIDE 40 MG TAB PO SCH (08:52)
[2024-10-27 10:39] LABS: Basophils # (A) 0.04 X 10*3/uL (0.00-0.10); Basophils % (A) 0.5 %; Eosinophils % (A) 1.3 %; HCT 42.8 % (37.2-46.3); HGB 13.4 g/dL (12.0-15.0); Lymphocytes # (A) 1.93 X 10*3/uL (0.90-5.00); Lymphocytes % (A) 25.3 %; MCHC 31.3 g/dL (32.0-37.0); MCV 89.5 FL (80.0-97.0); Mean Platelet Volume 11.2 FL (9.5-12.2); Monocytes # (A) 0.58 X 10*3/uL (0.20-1.00); Monocytes % (A) 7.6 %; NRBC Per 100 WBC 0 X 10*3/uL (0.00-0.01); Neutrophils # (A) 4.93 X 10*3/uL (1.80-7.70); Neutrophils % (A) 64.8 %; Platelet Count 155 X 10*3/uL (140-440); RBC 4.78 X 10*6/uL (4.10-5.20); RDW 17.2 % (11.5-14.5); WBC 7.62 X 10*3/uL (4.50-10.00)
[2024-10-27 10:40] LABS: Blood Urea Nitrogen 25.5 mg/dL (9.0-27.0); Calcium 8.5 mg/dL (8.7-10.3); Carbon Dioxide 27.7 mmol/L (21.6-31.8); Chloride 101 mmol/L (96-109); Glucose 93 mg/dL (70-110); Potassium 3.3 mmol/L (3.5-5.5); Sodium 140 mmol/L (135-145)
--- NOTE | 2024-10-27 10:40 | P.PN ---
Subjective HISTORY OF PRESENT ILLNESS: This is a 79-year-old female with a past medical history significant for COPD, chronic hypoxic respiratory failure on home oxygen, congestive heart failure, atrial fibrillation, and former nicotine dependence. Patient does not follow with a clerk stenographer. We have been asked to see the patient in consultation for congestive heart failure. Patient examined at the bedside. Patient's family is at the bedside. Patient presented to the hospital to chief complaint of shortness of breath and increased lower extremity edema. She denies any chest pain or pressure. Denies palpitations. Denies dizziness or lightheadedness. Patient was found to be in acute congestive heart failure and was started on IV Lasix. Telemetry reveals atrial fibrillation with a heart rate around 100. DIAGNOSTICS: - EKG not available at the time of this dictation - Chest xray cardiomegaly mild pulmonary vascular congestion - Laboratory data: WBC 7.77. Hemoglobin 13.4. Platelet count 165. D-dimer 0.53. Sodium 135. Potassium 3.8. BUN 22. Creatinine 0.61. Troponin negative x 1. proBNP 6400. - Current home cardiac medications include Eliquis 5 mg twice a day, Lasix 40 mg daily, metoprolol tartrate 25 mg twice a day - Most recent echocardiogram obtained in 2022 revealed ejection fraction 40 to 45%, moderate pulmonary hypertension, moderate mitral regurgitation and moderate to severe tricuspid regurgitation - Cardiac catheterization history: unknown 10/27/2024 Patient examined this morning at the bedside. Patient denies chest pain or pressure. Denies SOB. Vital signs are stable. Echocardiogram completed revealing ejection fraction 55 to 60%, severe right ventricular dilatation, severe pulm hypertension, mild MR, moderate TR PHYSICAL EXAM: VITAL SIGNS: Reviewed. GENERAL: Well-developed in no acute distress. HEENT: Head is normocephalic. Pupils are equal, round. Sclerae anicteric. Mucous membranes of the mouth are moist. Neck supple. No JVD or thyromegaly LUNGS: Respirations even and unlabored. Lungs essentially clear to auscultation bilaterally. HEART: Irregular rate and rhythm. S1 and S2 heard. + systolic murmur ABDOMEN: Soft. Nondistended. Nontender. EXTREMITIES: Normal range of motion. No clubbing or cyanosis. Peripheral pulses intact. Bilateral lower extremity edema noted. NEUROLOGIC: Awake and alert. Oriented x 3. ASSESSMENT: Shortness of breath Acute on chronic congestive heart failure with reduced with EF Persistent atrial fibrillation COPD Chronic hypoxic respiratory failure on home oxygen Former nicotine dependence PLAN: Discontinue IV lasix. Begin oral lasix Continue additional cardiac medications Stable for DC from a cardiac standpoint Nurse practitioner note has been reviewed by physician. Signing provider agrees with the documented findings, assessment, and plan of care documented by RECORD LIBRARIAN as a scribe. Objective - Vital Signs Vital signs: Vital Signs Temp 97.4 F L 10/27/24 07:00 Pulse 80 10/27/24 08:01 Resp 15 10/27/24 07:00 BP 108/74 10/27/24 07:00 Pulse Ox 94 L 10/27/24 07:00 FiO2 Intake & Output 10/26/24 10/27/24 10/27/24 18:59 06:59 18:59 Intake Total 898 Output Total 500 Balance 398 Weight 63.5 kg 59.5 kg Intake: Oral 898 Output: Urine 500 Other: Voiding Method Diaper Incontinent External Catheter # Bowel Movements 1 - Labs CBC & Chem 7: 10/26/24 05:58 10/26/24 05:58
--- NOTE | 2024-10-27 13:16 | P.PN ---
Subjective Progress Note Date: 10/27/24 Patient is a 79-year-old white female with past medical history significant for heart failure, atrial fibrillation, COPD, chronic hypoxemic respiratory failure on 3 L/min 31/05, former tobacco dependence, chronic lower back pain. Her primary care provider is Dr. Borges out of [place]. Of note, patient was recently discharged from [facility]. She was admitted there with heart failure and atrial fibrillation. Discharged to rehab at [facility]. While at the facility, she has become more short of breath and has had increased lower extremity swelling. She endorses orthopnea. She states she does take Lasix. Denies infectious-like symptoms. Denies fevers, chills, cough, sputum productio n, chest pain. Does reportedly have history of COPD. Normally uses an as needed albuterol inhaler at home. Is chronically oxygen dependent on 3 L/min nasal cannula. Chest x-ray showing cardiomegaly with pulmonary vascular congestion. No focal infiltrates, pleural effusions, or pneumothoraces. CBC: WBC count 12.7, hemoglobin 14.9, hematocrit 46.5, platelets 175. D-dimer 0.53. CMP is unremarkable. Electrolytes WDL. NT proBNP elevated at 6400. EKG: Atrial fibrillation with controlled ventricular response, rate 87 bpm, incomplete RBBB pattern. She is anticoagulated on Eliquis. Negative for influenza, RSV, COVID. Patient is currently being evaluated on the cardiac observation unit. She is on 5 L/min nasal cannula. She is in no acute distress. She has significant pitting lower extremity edema. Bibasilar rales on auscultation. Currently receiving Lasix 40 mg daily. On 10/27/2024, the patient is being seen for a follow-up. The patient is being diuresed with IV Lasix and the patient is negative fluid balance of at least 1.2 L over the past 24 hours. She remains on oxygen at 5 L/min nasal cannula. The white cell count is at 7.6 with a hemoglobin 15.4 and a platelet count of 155. Sodium is at 140, potassium is at 3.3 that is to be replaced. BUN is 25 with a creatinine of 1.0. Viral screen has been negative. No chest pain. No angina. No palpitation. No other new complaints otherwise for now. Objective - Vital Signs Vital signs: Vital Signs Temp 97.4 F L 10/27/24 07:00 Pulse 76 10/27/24 11:36 Resp 15 10/27/24 07:00 BP 108/74 10/27/24 07:00 Pulse Ox 94 L 10/27/24 07:00 FiO2 Intake & Output 10/26/24 10/27/24 10/27/24 18:59 06:59 18:59 Intake Total 898 Output Total 500 Balance 398 Weight 63.5 kg 59.5 kg Intake: Oral 898 Output: Urine 500 Other: Voiding Method Diaper Incontinent External Catheter # Bowel Movements 1 - Exam GENERAL EXAM: Alert, 79-year-old white female, lying in a semi-Fowlers position, not in any acute distress HEAD: Normocephalic and atraumatic EYES: Normal reaction of pupils, equal size. NOSE: Clear with pink turbinates. THROAT: No erythema or exudates. NECK: No masses, no JVD. CHEST: No chest wall deformity. LUNGS: Equal air entry with bibasilar inspiratory rales. No wheezes, rhonchi, focal dullness on 5 L/min nasal cannula, no conversational dyspnea or accessory muscle use while at rest CVS: S1 and S2 normal with systolic murmur, irregular rhythm. No other extra heart sounds ABDOMEN: No hepatosplenomegaly, active bowel sounds, no guarding or rigidity. SPINE: No scoliosis or deformity SKIN: No rashes CENTRAL NERVOUS SYSTEM: No focal deficits, tone is normal in all 4 extremities. EXTREMITIES: There is bilateral lower extremity 4+ pitting edema. No clubbing, or cyanosis. Peripheral pulses are intact. - Labs CBC & Chem 7: 10/27/24 06:58 10/27/24 06:58 Labs: Abnormal Lab Results - Last 24 Hours (Table) 10/27/24 10/27/24 Range/Units 06:58 06:58 MCHC 31.3 L (32.0-37.0) g/dL RDW 17.2 H (11.5-14.5) % Potassium 3.3 L (3.5-5.5) mmol/L Est GFR (CKD-EPI) 58 L (>=60) BUN/Creatinine Ratio 25.50 H (12.00-20.00) Ratio Calcium 8.5 L (8.7-10.3) mg/dL Assessment and Plan Assessment: Acute CHF exacerbation; chest x-ray showing cardiomegaly with pulmonary vascular congestion, NT proBNP 6400 Acute on chronic hypoxemic respiratory failure, secondary to above History of heart failure with reduced ejection fraction, most recent echocardiogram from June, estimated left ventricular ejection fraction of 40 to 45% along with moderate mitral regurgitation and moderate to severe tricuspid regurgitation Chronic obstructive pulmonary disease, appears stable on my evaluation Former tobacco dependence Chronic hypoxemic respiratory failure, normally maintained on 3 L/min nasal cannula Atrial fibrillation with controlled ventricular response, anticoagulated on Eliquis History of DVT Chronic lumbar back pain History of right proximal femur intertrochanteric fracture, status post right IM hip screw fixation History of breast cancer Plan: Clinically stable on 5 L of oxygen by nasal cannula Continue Lasix 40 mg IV every 12 hours and the patient is negative fluid balance Replace potassium Continue Symbicort Continue [facility] Repeat chest x-ray in the morning Echocardiogram was done on 10/25/2024 showed a preserved LV function, severe pulmonary hypertension with right-sided failure and right-sided heart dilatation. Continues to have some edema lower extremities bilaterally. Will continue to follow.
--- NOTE | 2024-10-27 13:20 | P.DS ---
Providers Date of admission: 10/26/24 14:11 Expected date of discharge: 10/27/24 Attending physician: Bart Hinojosa Consults: 10/25/24 14:19 Consult Physician Routine Consulting Provider: Thuy Toney Consult Reason/Comments: copd Do you want consulting provider notified?: Yes Consult Physician Routine Consulting Provider: Guicho Underwood Consult Reason/Comments: chf Do you want consulting provider notified?: Yes Primary care physician: German Leahy Hospital Course: Final diagnosis Shortness of breath, multifactorial secondary to chronic obstructive pulmonary disease as well as congestive heart failure acute exacerbation Acute on chronic congestive heart failure, acute exacerbation, EF is 55 to 60% Leukocytosis, reactive History of atrial fibrillation History of breast cancer History of DVT Anxiety/depression history GI prophylaxis DVT prophylaxis Full code Discharge disposition Patient is being discharged in a stable condition with guarded prognosis to [facility] [place]. Patient will follow-up with Dr. Leahy in the outpatient setting upon discharge. Patient is to continue with oral Lasix twice daily and outpatient follow-up with cardiology as scheduled. Recommend repeat labs of CBC, bMP, magnesium 2 to 3 days. Total time taken is greater than 35 minutes. Hospital course This is a 79-year-old female who was recently admitted with increased shortness of breath with COPD/CHF exacerbation being closely monitored. Cardiology and pulmonary following maintained on IV diuresis and has transition to oral Lasix recommend to continue with twice daily with outpatient follow-up with labs and monitoring kidney functions and electrolytes. Patient showing improvement and has been cleared by consultations for discharge back to [facility]. Patient to follow- up with cardiology and pulmonary outpatient and continue current regimen. Please refer to other consultation notes for further HPI. Currently no reports of chest pain, shortness of breath, or palpitations. Patient is afebrile. No reports of nausea or vomiting and patient is tolerating diet. Patient will be going to [facility] the [place] today. Guarded prognosis given significant comorbidities Physical exam: Gen: This is a 79-year-old female who is awake, alert and oriented, well- developed, elderly appearing, thin built HEENT: Head is atraumatic, normocephalic. Pupils equal, round. Sclerae is anicteric. NECK: Supple. No JVD. No lymphadenopathy. No thyromegaly. LUNGS: Diminished breath sounds bilaterally with a few scattered rhonchi. No intercostal retractions. HEART: S1, S2 are muffled ABDOMEN: Soft. Bowel sounds are present. No masses. No tenderness. EXTREMITIES: No pedal edema. No calf tenderness. NEUROLOGICAL: Patient is awake, alert and oriented x2 baseline cranial nerves 2 through 12 are grossly intact. Please refer to medication reconciliation sheet for a list of medications. The impression and plan of care has been dictated by Nancy Mack, Nurse Practitioner as directed. Dr. Ashish MD I have performed a history and examination and MDM of this patient, discussed the same with the dictator, and agree with the dictator's assessment and plan as written ,documented as a scribe. Based on total visit time, I have performed more than 50% of the visit. Patient Condition at Discharge: Fair Plan - Discharge Summary New Discharge Prescriptions: New Ipratropium-Albuterol Nebulize [Duoneb 0.5 mg-3 mg/3 ml Soln] 3 ml INHALATION RT-QID each Dapagliflozin Propanediol [Farxiga] 10 mg PO DAILY tab Furosemide [Lasix] 40 mg PO BID@0900,1600 tab Metoprolol Tartrate [Lopressor] 50 mg PO BID tab Budesonide-Formot 160-4.5 Mcg [Symbicort 160-4.5 Mcg Inhaler] 2 puff I NHALATION RT-BID each Continue Pregabalin [Lyrica] 75 mg PO BID #4 cap Apixaban [Eliquis] 5 mg PO Q12H Sertraline [Zoloft] 100 mg PO DAILY Sennosides/Docusate Sodium [Senna Plus 8.6-50 mg Tablet] 1 tab PO BID Omeprazole [PriLOSEC] 20 mg PO DAILY Melatonin 3 mg PO HS Changed HYDROcodone/APAP 5-325MG [[place] 5-325] 1 tab PO Q8H PRN #4 tab PRN Reason: Pain Discontinued Metoprolol Tartrate [Lopressor] 25 mg PO BID Furosemide [Lasix] 40 mg PO DAILY Discharge Medication List Apixaban [Eliquis] 5 mg PO Q12H 08/18/21 [History] Melatonin 3 mg PO HS 10/25/24 [History] Omeprazole [PriLOSEC] 20 mg PO DAILY 10/25/24 [History] Sennosides/Docusate Sodium [Senna Plus 8.6-50 mg Tablet] 1 tab PO BID 10/25/24 [History] Sertraline [Zoloft] 100 mg PO DAILY 10/25/24 [History] Budesonide-Formot 160-4.5 Mcg [Symbicort 160-4.5 Mcg Inhaler] 2 puff INHALATION RT-BID each 10/27/24 [Rx] Dapagliflozin Propanediol [Farxiga] 10 mg PO DAILY tab 10/27/24 [Rx] Furosemide [Lasix] 40 mg PO BID@0900,1600 tab 10/27/24 [Rx] HYDROcodone/APAP 5-325MG [[place] 5-325] 1 tab PO Q8H PRN #4 tab 10/27/24 [Rx] Ipratropium-Albuterol Nebulize [Duoneb 0.5 mg-3 mg/3 ml Soln] 3 ml INHALATION RT-QID each 10/27/24 [Rx] Metoprolol Tartrate [Lopressor] 50 mg PO BID tab 10/27/24 [Rx] Pregabalin [Lyrica] 75 mg PO BID #4 cap 10/27/24 [Rx] Follow up Appointment(s)/Referral(s): German Leahy MD [Primary Care Provider] - 1-2 days Ambulatory/Diagnostic Orders: Complete Blood Count w/diff [LAB.AMB] Time Frame: 3 Days, Location: None Selected Activity/Diet/Wound Care/Special Instructions: Patient is going to [facility] as tolerated Continue on current medication changes per cardiology Follow-up with cardiology outpatient Follow-up with primary care provider on discharge Repeat labs of CBC, BMP, magnesium in 2 to 3 days Monitor with fluid restrictions of 45 ounces daily Continue heart healthy diet Discharge Disposition: TRANSFER TO SNF/ECF
[2024-10-27 16:50] VITALS: RESP 17; TEMP 97.9
[2024-10-27 17:21] VITALS: BP 93/62; PULSE 101
--- NOTE | 2024-10-31 10:53 | P.PN ---
Subjective Progress Note Date: 10/31/24 Principal diagnosis: Acute on chronic hypoxic respiratory failure/cardiogenic shock and underlying COPD 79-year-old female patient, transferred from [facility] on the leg for diminished level of consciousness, hypoxemia, extreme lethargy, weakness, and she was in a shock state. Evaluated the patient in the emergency department. She was hypoxic and she was placed on oxygen at 10 L nasal cannula. She was quite cyanotic. She had increased lower extremity edema. She had severe lactic acidosis with a lactic acid level of 11. Blood gas showed a pH of 7.23 with a pCO2 of 31 and pO2 of 77. White cell count of 12.4 with a heme of 16.7 and a platelet count of 167. She has an acute kidney injury with a creatinine of 1.8 and a BUN of 38. Serum bicarb is at 14. Sodium levels at 137. Chest x-ray was consistent with CHF/pulmonary edema. CAT scan of the chest was done and it showed cardiomegaly and CHF about the pleural effusion and diffuse groundglass pulmonary infiltrates consistent with CHF and a CAT scan of the abdomen showed no acute intra-abdominal abnormalities, there was cholelithiasis and severe atherosclerosis along with cardiomegaly and bilateral pleural effusion and pulmonary edema. The patient was discharged from the hospital on 10/27/2024. She is known to have severe pulmonary hypertension and right-sided failure. LV function is preserved. She has been quite debilitated for some time. She has COPD and chronic hypoxic respiratory failure addition to history of atrial fibrillation. She has previous history of breast cancer and DVT maintained on anticoagulation with Eliquis. Family is at the bedside. No nausea. No vomiting. No significant abdominal pain. Mental status is altered. Extremities are cold and clammy consistent with cardiogenic shock. Patient was on 10/30/2024, patient is in the ICU, on 10 L high flow nasal cannula, patient is still on dobutamine at 2.5 mg/kg/min still on heparin drip, on D5W with 3 A of bicarb running at 50 cc/h she is empirically on cefepime and she is receiving Lasix 60 mg IV push every 8 hours. Her echocardiogram on this admission showed good LV function however echocardiogram on her last admission showed ejection fraction of 40 to 45%. Patient had a presentation of cardiogenic shock, with hypotension, severe metabolic acidosis, and right-sided congestive heart failure. Patient is known to have severe pulmonary hypertension. Considering her presentation, patient seems to be much better today compared to yesterday. Feeling better, breathing easier. Nonetheless still requiring multiple drips as noted. WBC count is 12.5 hemoglobin 13.4 PTT is 48.6/therapeutic potassium is low at 2.7, renal profile is improving BUN is 47 creatinine 1.5 bicarb is 28. Hence bicarb drip will be discontinued today. Viral screening on admission has been negative patient was seen today 10/31/2024 patient is about the same, family is at bedside, I had a long discussion yesterday with the family regarding her overall condition family expressed wishes about the DNR CODE STATUS and about comfort care measures. Today they have agreed to proceed with comfort care measures and hospice. The main concern is her quality of life. And after a brief discussion with the today, I recommended to proceed with comfort care based on the wishes of the family. Hospice has been already notified, and will discontinue dobutamine, discontinue heparin, and will proceed with comfort care. Objective - Vital Signs Vital signs: Vital Signs Temp 97.9 F 10/27/24 16:49 Pulse 101 H 10/27/24 17:20 Resp 17 10/27/24 16:49 BP 93/62 10/27/24 17:20 Pulse Ox 93 L 10/27/24 16:49 FiO2 - Exam General: Revealed 79-year-old female looks chronically ill and frail, not in distress. Nasal cannula HEENT: Normocephalic atraumatic, PERRLA, EOMI, nonicteric, no neck masses no JVD no stridor Cardiovascular: Heart regular rate and rhythm Chest: Able to complete full sentences, no retractions, no tachypnea Abdomen: abdomen soft, non-tender, non-distended, no organomegaly extremities no clubbing or cyanosis, 1+ bipedal edema Musculoskeletal: Deformities and no limitation range of motion Neurologic: No gross focal neurologic deficit Skin: No rashes Psych: Normal mood, affect, normal mental status - Labs CBC & Chem 7: 10/27/24 06:58 10/27/24 06:58 Assessment and Plan Assessment: Impression Cardiogenic shock/right-sided heart failure. Echocardiogram on this admission seem to be normal however recent echocardiogram on the last admission showed LV dysfunction ejection fraction of 40 to 45% Acute on chronic hypoxic respiratory failure currently on 2 L of oxygen by nasal cannula Acute kidney injury secondary to above Chronic obstructive pulmonary disease Chronic hypoxemic respiratory failure, normally maintained on 3 L/min nasal cannula, secondary to COPD Atrial fibrillation with controlled ventricular response, anticoagulated on Eliquis History of DVT Chronic lumbar back pain History of right proximal femur intertrochanteric fracture, status post right IM hip screw fixation History of breast cancer \ recommendation: Cussed her condition with the family again today/ Family wishes comfort care measures, and we will proceed as such Time with Patient: Less than 30
== END 2024-10-27 17:35 | DRG 291 ==
LOC: EC 10:38 → 6NMEDSUR 14:36 → OBSVTOIN 10-26 14:11
PROVIDERS: ADMIT Hospitalist; ATTEND Hospitalist
DX: I11.0 Hypertensive heart disease with heart failure (principal); J96.21 Acute and chronic respiratory failure with hypoxia; I48.19 Other persistent atrial fibrillation; J44.1 Chronic obstructive pulmonary disease with (acute) exacerbation; I50.22 Chronic systolic (congestive) heart failure; F32.A Depression, unspecified; F41.9 Anxiety disorder, unspecified; G89.29 Other chronic pain; M54.9 Dorsalgia, unspecified; I08.1 Rheumatic disorders of both mitral and tricuspid valves; I45.10 Unspecified right bundle-branch block; Z79.01 Long term (current) use of anticoagulants; Z79.51 Long term (current) use of inhaled steroids; Z79.84 Long term (current) use of oral hypoglycemic drugs; Z79.899 Other long term (current) drug therapy; Z85.3 Personal history of malignant neoplasm of breast; Z86.718 Personal history of other venous thrombosis and embolism; Z87.891 Personal history of nicotine dependence; Z99.81 Dependence on supplemental oxygen
CPT/HCPCS: 36415; 71046; 80048; 80053; 83605; 83880; 84484; 85025; 85379; 85610; 85730; 87636; 93005; 93306; 94640; 94760; 96374; 99285

== ENCOUNTER 2024-10-29 08:59 | Inpatient (IN) | payer MEDICARE, BC ==
--- NOTE | 2024-10-29 09:18 | ED ---
General Adult HPI - General Chief complaint: Altered Mental Status Stated complaint: [place]/AMS Source: patient, EMS Mode of arrival: EMS Limitations: no limitations - History of Present Illness Initial comments: Dictation was produced using Razz dictation software. please excuse any grammatical, word or spelling errors. Chief Complaint: 79-year-old female presents to the ER for hypoxia History of Present Illness: Patient 79-year-old female presents emergency department for hypoxia as she is allegedly ANO x 1-2 at baseline. History of present illness obtained from patient along EMS. Patient was allegedly normal yesterday this morning she was found to be hypoxic with a oxygen measurement of approximately 82%. She was put on supplemental oxygen with improvement of her oxygen by EMS. Patient is full code. Patient denies any symptoms at this time. She was also found to be altered by [facility] staff. Patient is a poor historian however denies any specific complaints at this time. ROS limited secondary to mental status. - Related Data Home Medications Medication Instructions Recorded Confirmed Apixaban [Eliquis] 5 mg PO BID@0900,209908/18/21 10/29/24 Melatonin 3 mg PO HS@209910/25/24 10/29/24 Omeprazole [PriLOSEC] 20 mg PO HS@209910/25/24 10/29/24 Sennosides/Docusate Sodium [Senna 1 tab PO BID@0900,209910/25/24 10/29/24 Plus 8.6-50 mg Tablet] Sertraline [Zoloft] 100 mg PO DAILY@0900 10/25/24 10/29/24 Budesonide-Formot 160-4.5 Mcg 2 puff INHALATION RT-BID@0900,209910/29/2410/29 [Symbicort 160-4.5 Mcg Inhaler] Dapagliflozin Propanediol [Farxiga] 10 mg PO DAILY@0900 10/29/24 10/29/24 Furosemide [Lasix] 40 mg PO BID@0600,1300 10/29/24 10/29/24 Ipratropium-Albuterol Nebulize 3 ml INHALATION RT-QID@09,13,17,21 10/29/24 10/29/24 [Duoneb 0.5 mg-3 mg/3 ml Soln] Metoprolol Tartrate [Lopressor] 50 mg PO BID@0900,209910/29/24 10/29/24 Pregabalin [Lyrica] 75 mg PO BID@0900,209910/29/24 10/29/24 Previous Rx's Medication Instructions Recorded HYDROcodone/APAP 5-325MG [[place] 1 tab PO Q8H PRN #4 tab 10/27/24 5-325] Allergies Allergy/AdvReac Type Severity Reaction Status Date / Time Penicillins Allergy Swelling Verified 10/29/24 09:06 Review of Systems ROS Statement: Those systems with pertinent positive or pertinent negative responses have been documented in the HPI. ROS Other: All systems not noted in ROS Statement are negative. Past Medical History Past Medical History: Cancer, COPD, Hypertension Additional Past Medical History / Comment(s): R leg DVT, breast CA, History of Any Multi-Drug Resistant Organisms: None Reported Past Surgical History: Hysterectomy Past Anesthesia/Blood Transfusion Reactions: No Reported Reaction Past Psychological History: Anxiety, Depression Smoking Status: Former smoker Past Alcohol Use History: None Reported Past Drug Use History: None Reported - Past Family History Father History Unknown: Yes General Exam - General Exam Comments Initial Comments: PHYSICAL EXAM: General Impression: Alert and oriented x3/4, not in acute distress, slight pallor HEENT: Normocephalic atraumatic, extra-ocular movements intact, pupils equal and reactive to light bilaterally, mucous membranes moist. Cardiovascular: Heart regular rate and rhythm Chest: Able to complete full sentences, no retractions, no tachypnea Abdomen: abdomen soft, non-tender, non-distended, no organomegaly Musculoskeletal: Pulses present and equal in all extremities, no peripheral edema Motor: no focal deficits noted Neurological: CN II-XII grossly intact, no focal motor or sensory deficits noted Skin: Intact with no visualized rashes Psych: Normal affect and mood Limitations: no limitations Course Vital Signs 10/29/24 10/29/24 09:03 11:42 Pulse Rate 89 80 Respiratory 24 18 Rate Blood Pressure 93/70 86/69 O2 Sat by Pulse 99 93 L Oximetry - Reevaluation(s) Reevaluation #1: 10/29/24 12:31 Discussion was held with family regarding patient's CODE STATUS. It appears that from chart review patient has history of congestive heart failure. She has poor functionality. Case was discussed with and daughter who are at the bedside regarding CODE STATUS. They are made aware that patient has significant metabolic derangement with a lactic acidosis of 8 of 11.4. at the bedside states that she wears home O2 at 3 L nasal cannula however there was an issue with her oxygen tank as she was getting approximately 1. Case was discussed with family and they reported that they would not like CPR or mechanical ventilation should she have respiratory or cardiac arrest. Reevaluation #2: 10/29/24 12:32 Patient takes anticoagulation medications. She does not have any reported history of DVT or PE. She does have elevated D-dimer of 4.64 however PE is unlikely given that she is currently on anticoagulation medications. At this time we will defer CT angiography of the chest and VQ scan. EKG Findings - EKG Comments: EKG Findings:: My EKG interpretation: Ventricular rate 93, A-fib, QRS 120, QTc 455. No QTC prolongation, no ST or T-wave changes noted. EKG compared to 05/26/2024 showing no changes. Overall, this EKG is unremarkable Medical Decision Making - Medical Decision Making Was pt. sent in by a medical professional or institution (, PA, [employer], urgent care, hospital, or [place] [facility]...) When possible be specific @ -No Did you speak to anyone other than the patient for history (EMS, parent, family, police, friend...)? What history was obtained from this source @ -See above Did you review nursing and triage notes (agree or disagree)? Why? @ -I reviewed and agree with nursing and triage notes Were old charts reviewed (outside hosp., previous admission, EMS record, old EKG, old radiological studies, urgent care reports/EKG's, [place] [facility] records)? Report findings @ -See above Differential Diagnosis (chest pain, altered mental status, abdominal pain women, abdominal pain men, vaginal bleeding, musculoskeletal, weakness, fever, dyspnea, syncope, headache, dizziness, GI bleed, back pain, seizure, CVA, palpatations, mental health)? @ -Differential Weakness: Hypoglycemia, shock, sepsis, hyponatremia, anemia, infection, OR, ETOH, adverse medicine reaction, overdose, stroke, this is not meant to be an all-inclusive list. Differential Dyspnea: Coronary syndrome, arrhythmia, tamponade, asthma, COPD, pulmonary embolism, pneumonia, pneumothorax, pulmonary effusion, anaphylaxis, diabetic ketoacidosis, flailed chest, pulmonary contusion, diaphragmatic rupture, anemia, neuromuscula r, this is not meant to be an all-inclusive list. EKG interpreted by me (3pts min.). @ -See above X-rays interpreted by me (1pt min.). @ -Chest x-ray shows heart failure. Abdominal x-ray shows no obstruction CT interpreted by me (1pt min.). @ -CT brain shows no acute processes. CT chest confirms CHF U/S interpreted by me (1pt. min.). @ -None done What testing was considered but not performed or refused? (CT, X-rays, U/S, labs)? Why? @ -None What meds were considered but not given or refused? Why? @ -None Was smoking cessation discussed for >3mins.? @ -No Were there social determinants of health that impacted care today? How? (Homelessness, low income, unemployed, alcoholism, drug addiction, transportation, low edu. Level, literacy, decrease access to med. care, longterm, rehab)? @ -No Was there de-escalation of care discussed even if they declined (Discuss DNR or withdrawal of care, Hospice)? DNR status @ -See above What co-morbidities impacted this encounter? (DM, HTN, Smoking, COPD, CAD, Cancer, CVA, ARF, Chemo, Hep., AIDS, mental health diagnosis, sleep apnea, morbid obesity)? @ -Heart failure, debility, COPD Was patient admitted / discharged? Hospital course, mention meds given and route, prescriptions, significant lab abnormalities, going to OR and other pertinent info. @ -79-year-old female brought to the emergency department for hypoxic respiratory failure. Patient's oxygen was maintained with supplemental oxygen. She allegedly wears 3 L nasal cannula per her at home. after patient initially arrived states that she was without correct settings with her nasal cannula overnight. Patient a unreliable historian however does not have any specific complaints. Vital signs upon arrival shows borderline blood pressure 93/70. Rest of vital signs within acceptable limits with supplemental oxygen. Clinical presentation concerning for heart failure with metabolic acidosis. CBC within acceptable limits. ABG suggest metabolic acidosis. L actic acidosis 11.4. Elevated renal function. Troponin of 0.174 with a BNP of 20,000. Viral testing negative. Imaging studies did not suggest any infection. Thoracic imaging suggest heart failure. Patient made no code after lengthy discussion with family. Case discussed with hospitalist for admission. Case also discussed with fleet manager/dispatch for ICU admission. Did you discuss the management of the patient with other professionals (professionals i.e. , PA, [employer], lab, RT, psych nurse, social work specialist, installer technician, teacher, senior credit officer, showcase trimmer)? Give summary @ -See above Was critical care preformed (if so, how long)? @ -Yes, 77 minutes Undiagnosed new problem with uncertain prognosis? @ -No Drug Therapy requiring intensive monitoring for toxicity (Heparin, Nitro, Insulin, Cardizem)? @ -No Were any procedures done? @ -No Diagnosis/symptom? Acute, or Chronic, or Acute on Chronic? Uncomplicated (without systemic symptoms) or Complicated (systemic symptoms)? @ -Congestive heart failure complicated by lactic acidosis and hypoxic respiratory failure Side effects of treatment? @ -No Exacerbation, Progression, or Severe Exacerbation? @ -Yes Poses a threat to life or bodily function? How? (Chest pain, [place], OR, pneumonia, PE, COPD, DKA, ARF, appy, cholecystitis, CVA, Diverticulitis, Homicidal, Suicidal, threat to staff... and all critical care pts) @ -yes - Lab Data Result diagrams: 10/29/24 09:09 10/29/24 09:09 Lab Results 10/29/24 10/29/24 10/29/24 Range/Units 09:09 09:09 09:09 WBC 12.4 H (3.8-10.6) k/uL RBC 5.65 H (3.80-5.40) m/uL Hgb 16.7 H (11.4-16.0) gm/dL Hct 54.4 H (34.0-46.0) % MCV 96.2 D (80.0-100.0) fL MCH 29.6 (25.0-35.0) pg MCHC 30.7 L (31.0-37.0) g/dL RDW 16.3 H (11.5-15.5) % Plt Count 167 (150-450) k/uL MPV 9.1 Neutrophils % 80 % Lymphocytes % 15 % Monocytes % 3 % Eosinophils % 0 % Basophils % 1 % Neutrophils # 10.0 H (1.3-7.7) k/uL Lymphocytes # 1.9 (1.0-4.8) k/uL Monocytes # 0.4 (0-1.0) k/uL Eosinophils # 0.0 (0-0.7) k/uL Basophils # 0.1 (0-0.2) k/uL Hypochromasia Marked Anisocytosis Slight PT 18.5 H (10.0-12.5) sec INR 1.8 H (<1.2) APTT 26.8 (22.0-30.0) sec D-Dimer 4.64 H (<0.60) mg/L FEU Sample Site ABG pH (7.35-7.45) ABG pCO2 (35-45) mmHg ABG pO2 (83-108) mmHg ABG HCO3 (21-25) mmol/L ABG Total CO2 (19-24) mmol/L ABG O2 Saturation (94-97) % ABG Base Excess mmol/L Ham Test Hemoglobin (11.4-16.0) gm/dL FiO2 % Sodium 137 (137-145) mmol/L Potassium 4.2 (3.5-5.1) mmol/L Chloride 98 (98-107) mmol/L Carbon Dioxide 14 L (22-30) mmol/L Anion Gap 25 mmol/L BUN 38 H (7-17) mg/dL Creatinine 1.80 H (0.52-1.04) mg/dL Est GFR (CKD-EPI)AfAm 31 (>60 ml/min/1.73 sqM) Est GFR (CKD-EPI)NonAf 27 (>60 ml/min/1.73 sqM) Glucose 88 (74-99) mg/dL Lactic Ac Sepsis Rflx Plasma Lactic Acid Nishant (0.7-2.0) mmol/L Calcium 8.9 (8.4-10.2) mg/dL Magnesium 2.6 H (1.6-2.3) mg/dL Total Bilirubin 3.5 H (0.2-1.3) mg/dL AST 126 H (14-36) U/L ALT 55 H (4-34) U/L Alkaline Phosphatase 117 (38-126) U/L Ammonia (<30) umol/L Troponin I (0.000-0.034) ng/mL NT-Pro-B Natriuret Pep 16716 pg/mL Total Protein 6.7 (6.3-8.2) g/dL Albumin 4.1 (3.5-5.0) g/dL Influenza Type A (PCR) (Not Detectd) Influenza Type B (PCR) (Not Detectd) RSV (PCR) (Not Detectd) SARS-CoV-2 (PCR) (Not Detectd) 10/29/24 10/29/24 10/29/24 Range/Units 09:09 09:09 09:09 WBC (3.8-10.6) k/uL RBC (3.80-5.40) m/uL Hgb (11.4-16.0) gm/dL Hct (34.0-46.0) % MCV (80.0-100.0) fL MCH (25.0-35.0) pg MCHC (31.0-37.0) g/dL RDW (11.5-15.5) % Plt Count (150-450) k/uL MPV Neutrophils % % Lymphocytes % % Monocytes % % Eosinophils % % Basophils % % Neutrophils # (1.3-7.7) k/uL Lymphocytes # (1.0-4.8) k/uL Monocytes # (0-1.0) k/uL Eosinophils # (0-0.7) k/uL Basophils # (0-0.2) k/uL Hypochromasia Anisocytosis PT (10.0-12.5) sec INR (<1.2) APTT (22.0-30.0) sec D-Dimer (<0.60) mg/L FEU Sample Site ABG pH (7.35-7.45) ABG pCO2 (35-45) mmHg ABG pO2 (83-108) mmHg ABG HCO3 (21-25) mmol/L ABG Total CO2 (19-24) mmol/L ABG O2 Saturation (94-97) % ABG Base Excess mmol/L Ham Test Hemoglobin (11.4-16.0) gm/dL FiO2 % Sodium (137-145) mmol/L Potassium (3.5-5.1) mmol/L Chloride (98-107) mmol/L Carbon Dioxide (22-30) mmol/L Anion Gap mmol/L BUN (7-17) mg/dL Creatinine (0.52-1.04) mg/dL Est GFR (CKD-EPI)AfAm (>60 ml/min/1.73 sqM) Est GFR (CKD-EPI)NonAf (>60 ml/min/1.73 sqM) Glucose (74-99) mg/dL Lactic Ac Sepsis Rflx Plasma Lactic Acid Nishant 11.4 H* (0.7-2.0) mmol/L Calcium (8.4-10.2) mg/dL Magnesium (1.6-2.3) mg/dL Total Bilirubin (0.2-1.3) mg/dL AST (14-36) U/L ALT (4-34) U/L Alkaline Phosphatase (38-126) U/L Ammonia (<30) umol/L Troponin I 0.174 H* (0.000-0.034) ng/mL NT-Pro-B Natriuret Pep pg/mL Total Protein (6.3-8.2) g/dL Albumin (3.5-5.0) g/dL Influenza Type A (PCR) Not Detected (Not Detectd) Influenza Type B (PCR) Not Detected (Not Detectd) RSV (PCR) Not Detected (Not Detectd) SARS-CoV-2 (PCR) Not Detected (Not Detectd) 10/29/24 10/29/24 10/29/24 Range/Units 09:30 09:50 10:00 WBC (3.8-10.6) k/uL RBC (3.80-5.40) m/uL Hgb (11.4-16.0) gm/dL Hct (34.0-46.0) % MCV (80.0-100.0) fL MCH (25.0-35.0) pg MCHC (31.0-37.0) g/dL RDW (11.5-15.5) % Plt Count (150-450) k/uL MPV Neutrophils % % Lymphocytes % % Monocytes % % Eosinophils % % Basophils % % Neutrophils # (1.3-7.7) k/uL Lymphocytes # (1.0-4.8) k/uL Monocytes # (0-1.0) k/uL Eosinophils # (0-0.7) k/uL Basophils # (0-0.2) k/uL Hypochromasia Anisocytosis PT (10.0-12.5) sec INR (<1.2) APTT (22.0-30.0) sec D-Dimer (<0.60) mg/L FEU Sample Site lbrach ABG pH 7.23 L (7.35-7.45) ABG pCO2 31 L (35-45) mmHg ABG pO2 77 L (83-108) mmHg ABG HCO3 13 L (21-25) mmol/L ABG Total CO2 14 L (19-24) mmol/L ABG O2 Saturation 92.6 L (94-97) % ABG Base Excess -13.0 mmol/L Ham Test Yes Hemoglobin 15.3 (11.4-16.0) gm/dL FiO2 52 % Sodium (137-145) mmol/L Potassium (3.5-5.1) mmol/L Chloride (98-107) mmol/L Carbon Dioxide (22-30) mmol/L Anion Gap mmol/L BUN (7-17) mg/dL Creatinine (0.52-1.04) mg/dL Est GFR (CKD-EPI)AfAm (>60 ml/min/1.73 sqM) Est GFR (CKD-EPI)NonAf (>60 ml/min/1.73 sqM) Glucose (74-99) mg/dL Lactic Ac Sepsis Rflx Y Plasma Lactic Acid Nishant (0.7-2.0) mmol/L Calcium (8.4-10.2) mg/dL Magnesium (1.6-2.3) mg/dL Total Bilirubin (0.2-1.3) mg/dL AST (14-36) U/L ALT (4-34) U/L Alkaline Phosphatase (38-126) U/L Ammonia 10 (<30) umol/L Troponin I (0.000-0.034) ng/mL NT-Pro-B Natriuret Pep pg/mL Total Protein (6.3-8.2) g/dL Albumin (3.5-5.0) g/dL Influenza Type A (PCR) (Not Detectd) Influenza Type B (PCR) (Not Detectd) RSV (PCR) (Not Detectd) SARS-CoV-2 (PCR) (Not Detectd) 10/29/24 Range/Units 11:50 WBC (3.8-10.6) k/uL RBC (3.80-5.40) m/uL Hgb (11.4-16.0) gm/dL Hct (34.0-46.0) % MCV (80.0-100.0) fL MCH (25.0-35.0) pg MCHC (31.0-37.0) g/dL RDW (11.5-15.5) % Plt Count (150-450) k/uL MPV Neutrophils % % Lymphocytes % % Monocytes % % Eosinophils % % Basophils % % Neutrophils # (1.3-7.7) k/uL Lymphocytes # (1.0-4.8) k/uL Monocytes # (0-1.0) k/uL Eosinophils # (0-0.7) k/uL Basophils # (0-0.2) k/uL Hypochromasia Anisocytosis PT (10.0-12.5) sec INR (<1.2) APTT (22.0-30.0) sec D-Dimer (<0.60) mg/L FEU Sample Site ABG pH (7.35-7.45) ABG pCO2 (35-45) mmHg ABG pO2 (83-108) mmHg ABG HCO3 (21-25) mmol/L ABG Total CO2 (19-24) mmol/L ABG O2 Saturation (94-97) % ABG Base Excess mmol/L Ham Test Hemoglobin (11.4-16.0) gm/dL FiO2 % Sodium (137-145) mmol/L Potassium (3.5-5.1) mmol/L Chloride (98-107) mmol/L Carbon Dioxide (22-30) mmol/L Anion Gap mmol/L BUN (7-17) mg/dL Creatinine (0.52-1.04) mg/dL Est GFR (CKD-EPI)AfAm (>60 ml/min/1.73 sqM) Est GFR (CKD-EPI)NonAf (>60 ml/min/1.73 sqM) Glucose (74-99) mg/dL Lactic Ac Sepsis Rflx Plasma Lactic Acid Nishant 11.0 H* (0.7-2.0) mmol/L Calcium (8.4-10.2) mg/dL Magnesium (1.6-2.3) mg/dL Total Bilirubin (0.2-1.3) mg/dL AST (14-36) U/L ALT (4-34) U/L Alkaline Phosphatase (38-126) U/L Ammonia (<30) umol/L Troponin I (0.000-0.034) ng/mL NT-Pro-B Natriuret Pep pg/mL Total Protein (6.3-8.2) g/dL Albumin (3.5-5.0) g/dL Influenza Type A (PCR) (Not Detectd) Influenza Type B (PCR) (Not Detectd) RSV (PCR) (Not Detectd) SARS-CoV-2 (PCR) (Not Detectd) Disposition Clinical Impression: Lactic acidosis, Hypoxic respiratory failure Disposition: ADMITTED IP TO THIS HOSP Condition: Critical Referrals: German Leahy MD [STAFF PHYSICIAN] - 1-2 days Decision Time: 12:51
[2024-10-29 09:34] LABS: ABG HCO3 13 mmol/L (21-25); ABG Oxygen Saturation 92.6 % (94-97); ABG PCO2 31 mmHg (35-45); ABG PH 7.23 (7.35-7.45); ABG PO2 77 mmHg (83-108); ABG TCO2 14 mmol/L (19-24); Allen Test Performed? Yes
[2024-10-29 09:44] LABS: AST 126 U/L (14-36); African American GFR (CKD) 31 (>60 ml/min/1.73 sqM); Albumin 4.1 g/dL (3.5-5.0); Alkaline Phosphatase 117 U/L (38-126); Anion Gap 25 mmol/L; Blood Urea Nitrogen 38 mg/dL (7-17); Calcium 8.9 mg/dL (8.4-10.2); Carbon Dioxide 14 mmol/L (22-30); Chloride 98 mmol/L (98-107); Glucose 88 mg/dL (74-99); Magnesium 2.6 mg/dL (1.6-2.3); Non-African American GFR(CKD) 27 (>60 ml/min/1.73 sqM); Potassium 4.2 mmol/L (3.5-5.1); Sodium 137 mmol/L (137-145); Total Bilirubin 3.5 mg/dL (0.2-1.3); Total Protein 6.7 g/dL (6.3-8.2)
[2024-10-29 09:50] LABS: ALT 55 U/L (4-34)
[2024-10-29 09:52] LABS: NT-Pro-B-Type Natriuretic Pept 20000 pg/mL
[2024-10-29 10:07] LABS: Anisocytosis Slight; Basophils # (A) 0.1 k/uL (0-0.2); Basophils % (A) 1 %; Eosinophils % (A) 0 %; HCT 54.4 % (34.0-46.0); HGB 16.7 gm/dL (11.4-16.0); Hypochromasia Marked; Lymphocytes # (A) 1.9 k/uL (1.0-4.8); Lymphocytes % (A) 15 %; MCH 29.6 pg (25.0-35.0); MCHC 30.7 g/dL (31.0-37.0); Mean Platelet Volume 9.1; Monocytes # (A) 0.4 k/uL (0-1.0); Monocytes % (A) 3 %; Neutrophils % (A) 80 %; Platelet Count 167 k/uL (150-450); RBC 5.65 m/uL (3.80-5.40); RDW 16.3 % (11.5-15.5); WBC 12.4 k/uL (3.8-10.6)
[2024-10-29 10:08] LABS: MCV 96.2 fL (80.0-100.0)
[2024-10-29 10:19] LABS: INR 1.8 (<1.2); Partial Thromboplastin Time 26.8 sec (22.0-30.0); Prothrombin Time 18.5 sec (10.0-12.5)
--- NOTE | 2024-10-29 10:24 | XR ---
Chest, 2 view. HISTORY: Hypoxia COMPARISON: 10/25/2024 TECHNIQUE: PA and lateral views the chest are obtained. FINDINGS: There is persistent moderate cardiomegaly and small bilateral pleural effusions. There is mild diffus e stable interstitial opacity. The findings are most consistent with stable mild to moderate CHF. There is no airspace consolidation. There is no pneumothorax. There is vertebroplasty cement in one of the lower thoracic vertebral segments otherwise the osseous structures are intact. IMPRESSION: Acute cardiopulmonary disease most consistent with mild to moderate CHF unchanged compared to the pr ior study. [facility], , 10/29/2024 10:20 AM
--- NOTE | 2024-10-29 10:25 | XR ---
Abdomen, single view HISTORY: No bowel movement Assessment. COMPARISON: None TECHNIQUE: Single supine AP view of the abdomen was obtained. FINDINGS: Bowel gas pattern is nonspecific and there is no evidence of obstruction. There is a mild amount of s tool within the left colon and rectum. There is a 2.5 cm gallstone. There is been vertebroplasty at the T12 level. There is a fixation screw in the right hip. The osseou s structures are osteopenic. IMPRESSION: 1. Nonspecific bowel gas pattern. 2. Mild amount of stool within the left colon and rectum. 3. gallstone. [facility], , 10/29/2024 10:23 AM
--- NOTE | 2024-10-29 10:56 | CT ---
EXAMINATION TYPE: CT brain wo con DATE OF EXAM: 10/29/2024 COMPARISON: CT head from outside institution dated 06/26/2023 CLINICAL INDICATION: Female, 79 years old with history of ams; PHH, ams and hypoxic CT DLP: 1127.4 mGycm Automated exposure control for dose reduction was used. Findings: The ventricles, basal cisterns and sulci over convexities are moderately enlarged consistent with mod erate generalized atrophy, appropriate for the patient's age. There is no mass effect or shift of midline structures. There is moderate decreased density in the periventricular white matter consistent with moderate isch emic white matter demyelination. There is no acute intra or extra-axial hemorrhage. The posterior fossa including the brainstem, fourth ventricle and cerebellopontine angles appear danielle sly normal. There is a stable 8.8 mm well-circumscribed hyperdense mass in the posterior right globe. The left gl obe is unremarkable. Visualized paranasal sinuses and mastoid air cells are well aerated. Calvarium is intact. IMPRESSION: 1. Age appropriate senescent changes as described above. 2. No acute bleed or mass effect. 3. Densely calcified mass in the posterior right lobe. 4. No significant interval change compared to the prior outside study. [facility], , 10/29/2024 10:54 AM
--- NOTE | 2024-10-29 10:59 | CT ---
EXAMINATION TYPE: CT chest wo con DATE OF EXAM: 10/29/2024 COMPARISON: None CLINICAL INDICATION: Female, 79 years old with history of hypoxia; PHH, ams and hypoxic TECHNIQUE: CT scan of the thorax is performed without IV contrast. CT DLP: 240.[address] CTDI: mGy Automated exposure control for dose reduction was used. FINDINGS: There is marked cardiomegaly and mild pericardial effusion. There is diffuse scattered groundglass opacity with small right pleural effusion and tiny left pleura l effusion. There is mild right basilar atelectasis. The findings are most consistent with CHF and cl inical correlation is recommended. Limited scanning through the upper abdomen reveals no gross abnormality. No focal osseous lesions are seen. IMPRESSION: Findings most consistent with wboc-up-bowtclic CHF and clinical correlation is recommended. [facility], , 10/29/2024 10:57 AM
[2024-10-29] MEDS: SODIUM CHLORIDE 0.9% 1,000 ML IV STA (11:03)
[2024-10-29] MEDS ORDERED: NALOXONE 0.4 MG/ML 1 ML VIAL IV PRN (12:44)
[2024-10-29 12:53] LABS: Appearance,Urine Cloudy (Clear); Bacteria,Urine Rare /hpf; Bilirubin,Urine Negative (Negative); Blood,Urine Negative (Negative); Budding Yeast,Urine Many /hpf; Color,Urine Yellow; Glucose,Urine (UA) Trace (Negative); Hyaline Casts,Urine 34 /lpf (0-2); Ketones,Urine Negative (Negative); Leukocyte Esterase,Urine Negative (Negative); Mucus,Urine Few /hpf; Nitrite,Urine Negative (Negative); PH, Urine 5.5 (5.0-8.0); Protein,Urine 2+ (Negative); RBC,Urine 43 /hpf (0-5); Specific Gravity,Urine 1.017 (1.001-1.035); Squamous Epithelial Cell,Urine <1 /hpf (0-4); Urobilinogen,Urine <2.0 mg/dL (<2.0); WBC,Urine 11 /hpf (0-5)
[2024-10-29] MEDS: SODIUM CHLORIDE 0.9% 500 ML 500 ML IV STA (13:20)
[2024-10-29] MEDS: CEFEPIME 2 GM in SODIUM CHLORIDE 0.9% 100 ML IVPB STA (13:21)
--- NOTE | 2024-10-29 13:27 | CT ---
EXAMINATION TYPE: CT abdomen pelvis wo con DATE OF EXAM: 10/29/2024 1:04 PM COMPARISON: CT abdomen pelvis most recent from 06/26/2023 CLINICAL INDICATION: Female, 79 years old with history of abdominal pain, lactic acid 11; abdominal p ain, lactic acid 11 TECHNIQUE: Axial CT abdomen pelvis wo con;Sagittal and coronal reformats were created on a separate workstation. Contrast used: mL of , (none if empty) Oral contrast used: without Oral Contrast (none if empty) CT DLP: 556.8 mGycm, Automated exposure control for dose reduction was used. FINDINGS: LOWER CHEST: Peripherally calcified lesion in the right inferior medial breast Heart is enlarged for size. Trace bilateral pleural effusions. ABDOMEN LIVER: Diffusely hypoattenuating parenchyma. GALLBLADDER AND BILE DUCTS: Layering increased densities within the lumen consistent with gallstones are present. PANCREAS: Unremarkable. SPLEEN: Unremarkable. ADRENAL GLANDS: Unremarkable. KIDNEYS AND URETERS: No evidence of hydronephrosis or renal calculus. The ureters are unremarkable. PELVIS BLADDER: Nondistended with Jordan catheter in place. REPRODUCTIVE: Unremarkable. ABDOMEN & PELVIS STOMACH AND BOWEL: No evidence of bowel obstruction. No evidence for pneumatosis or bowel wall thicke noel. PERITONEUM/RETROPERITONEUM: No evidence of pneumoperitoneum. Small amount of free fluid in the pelvis . VASCULATURE: Moderate atherosclerotic calcifications are present throughout the abdominal aorta and i ts branches. No evidence of aortic aneurysm. MUSCULOSKELETAL: No acute osseous abnormalities, right hip fixation hardware is intact. LYMPH NODES: No gross evidence for lymphadenopathy. SOFT TISSUE/ABDOMINAL WALL: Unremarkable IMPRESSION: 1. No evidence for pneumatosis to suggest ischemic bowel. 2. No definitive acute intra-abdominal process. Small ascites throughout the abdomen. 3. Cardiomegaly with trace bilateral pleural effusions correlate with serum BNP. 4. Hepatic steatosis. 5. Cholelithiasis. 6. Severe atherosclerosis. 7. Right hip fixation hardware is intact.. [facility], , 10/29/2024 1:24 PM
--- NOTE | 2024-10-29 14:00 | P.CNPUL ---
History of Present Illness Consult date: 10/29/24 Reason for consult: dyspnea History of present illness: 79-year-old female patient, transferred from [facility] Emergency Department on the leg for diminished level of consciousness, hypoxemia, extreme lethargy, weakness, and she was in a shock state. Evaluated the patient in the emergency department. She was hypoxic and she was placed on oxygen at 10 L nasal cannula. She was quite cyanotic. She had increased lower extremity edema. She had severe lactic acidosis with a lactic acid level of 11. Blood gas showed a pH of 7.23 with a pCO2 of 31 and pO2 of 77. White cell count of 12.4 with a heme of 16.7 and a platelet count of 167. She has an acute kidney injury with a creatinine of 1.8 and a BUN of 38. Serum bicarb is at 14. Sodium levels at 137. Chest x-ray was consistent with CHF/pulmonary edema. CAT scan of the chest was done and it showed cardiomegaly and CHF about the pleural effusion and diffuse groundglass pulmonary infiltrates consistent with CHF and a CAT scan of the abdomen showed no acute intra-abdominal abnormalities, there was cholelithiasis and severe atherosclerosis along with cardiomegaly and bilateral pleural effusion and pul monary edema. The patient was discharged from the hospital on 10/27/2024. She is known to have severe pulmonary hypertension and right-sided failure. LV function is preserved. She has been quite debilitated for some time. She has COPD and chronic hypoxic respiratory failure addition to history of atrial fibrillation. She has previous history of breast cancer and DVT maintained on anticoagulation with Eliquis. Family is at the bedside. No nausea. No vomiting. No significant abdominal pain. Mental status is altered. Extremities are cold and clammy consistent with cardiogenic shock. Review of Systems ROS unobtainable: due to mental status (Very much debilitated, cyanotic, cold and clammy. ) Past Medical History Past Medical History: Cancer, Heart Failure, COPD, Hypertension Additional Past Medical History / Comment(s): R leg DVT, breast CA, History of Any Multi-Drug Resistant Organisms: None Reported Past Surgical History: Hysterectomy Past Anesthesia/Blood Transfusion Reactions: No Reported Reaction Past Psychological History: Anxiety, Depression Smoking Status: Former smoker Past Alcohol Use History: None Reported Past Drug Use History: None Reported - Past Family History Father History Unknown: Yes Medications and Allergies Home Medications Medication Instructions Recorded Confirmed Type Apixaban [Eliquis] 5 mg PO BID@0900,209908/18/21 10/29/24 History Melatonin 3 mg PO HS@209910/25/24 10/29/24 History Omeprazole [PriLOSEC] 20 mg PO HS@209910/25/24 10/29/24 History Sennosides/Docusate Sodium [Senna 1 tab PO BID@0900,209910/25/24 10/29/24 History Plus 8.6-50 mg Tablet] Sertraline [Zoloft] 100 mg PO DAILY@0900 10/25/24 10/29/24 History HYDROcodone/APAP 5-325MG [[place] 1 tab PO Q8H PRN #4 tab 10/27/24 10/29/24 Rx 5-325] Budesonide-Formot 160-4.5 Mcg 2 puff INHALATION RT-BID@0900,209910/29/24 10/29/24 History [Symbicort 160-4.5 Mcg Inhaler] Dapagliflozin Propanediol [Farxiga] 10 mg PO DAILY@0900 10/29/24 10/29/24 History Furosemide [Lasix] 40 mg PO BID@0600,1300 10/29/24 10/29/24 History Ipratropium-Albuterol Nebulize 3 ml INHALATION RT-QID@09,13,17,10/29/24 10/29/24 History [Duoneb 0.5 mg-3 mg/3 ml Soln] Metoprolol Tartrate [Lopressor] 50 mg PO BID@0900,209910/29/24 10/29/24 History Pregabalin [Lyrica] 75 mg PO BID@0900,209910/29/24 10/29/24 History Allergies Allergy/AdvReac Type Severity Reaction Status Date / Time cephalexin [From Keflex] Allergy Unknown Verified 10/29/24 13:26 Penicillins Allergy Swelling Verified 10/29/24 09:06 Physical Exam Vitals: Vital Signs Pulse Resp BP Pulse Ox 10/29/24 11:42 80 18 86/69 93 L 10/29/24 09:03 89 24 93/70 99 Intake and Output 10/28/24 10/29/24 10/29/24 22:59 06:59 14:59 Other: Weight 54.431 kg The patient appeared to be in mild degree of respiratory distress. She had blue lips and she was showing peripheral cyanosis. She was also confused, lethargic and quite obtunded. Head exam is unremarkable. No scleral icterus or corneal arcus noted. Neck is showing bilateral venous distension, thyromegaly, or carotid bruits. Carotid upstrokes are brisk bilaterally. Lungs sounds are diminished in lung bases along with bibasilar crackles Cardiac exam reveals the PMI to be normally sized and situated. Rhythm is regular. First and second heart sounds normal. There is accentuation of the second heart sound Abdominal exam reveals normal bowel sounds, no masses, no organomegaly and no aortic enlargement. Extremities are edematous, cold and clammy with marked diminished pulse in lower extremities bilaterally. Examination of the skin revealed no evidence of significant rashes, suspicious appearing nevi or other concerning lesions. Neurologically, the patient is arousable he is confused. No agitation. No focal neurological deficits. Results - Laboratory Findings CBC and BMP: 10/29/24 09:09 10/29/24 09:09 ABG ABG pH 7.23 (7.35-7.45) L 10/29/24 09:30 ABG pCO2 31 mmHg (35-45) L 10/29/24 09:30 ABG pO2 77 mmHg (83-108) L 10/29/24 09:30 ABG O2 Saturation 92.6 % (94-97) L 10/29/24 09:30 PT/INR, D-dimer PT 18.5 sec (10.0-12.5) H 10/29/24 09:09 INR 1.8 (<1.2) H 10/29/24 09:09 D-Dimer 4.64 mg/L FEU (<0.60) H 10/29/24 09:09 Abnormal lab findings: Abnormal Labs 10/29/24 10/29/24 10/29/24 09:09 09:09 09:09 WBC 12.4 H RBC 5.65 H Hgb 16.7 H Hct 54.4 H MCHC 30.7 L RDW 16.3 H Neutrophils # 10.0 H PT 18.5 H INR 1.8 H D-Dimer 4.64 H ABG pH ABG pCO2 ABG pO2 ABG HCO3 ABG Total CO2 ABG O2 Saturation Carbon Dioxide 14 L BUN 38 H Creatinine 1.80 H Plasma Lactic Acid Nishant Magnesium 2.6 H Total Bilirubin 3.5 H AST 126 H ALT 55 H Troponin I Urine Appearance Urine Protein Urine Glucose (UA) Urine RBC Urine WBC Urine Bacteria Hyaline Casts Urine Mucus Urine Yeast (Budding) 10/29/24 10/29/24 10/29/24 09:09 09:09 09:30 WBC RBC Hgb Hct MCHC RDW Neutrophils # PT INR D-Dimer ABG pH 7.23 L ABG pCO2 31 L ABG pO2 77 L ABG HCO3 13 L ABG Total CO2 14 L ABG O2 Saturation 92.6 L Carbon Dioxide BUN Creatinine Plasma Lactic Acid Nishant 11.4 H* Magnesium Total Bilirubin AST ALT Troponin I 0.174 H* Urine Appearance Urine Protein Urine Glucose (UA) Urine RBC Urine WBC Urine Bacteria Hyaline Casts Urine Mucus Urine Yeast (Budding) 10/29/24 10/29/24 11:50 12:38 WBC RBC Hgb Hct MCHC RDW Neutrophils # PT INR D-Dimer ABG pH ABG pCO2 ABG pO2 ABG HCO3 ABG Total CO2 ABG O2 Saturation Carbon Dioxide BUN Creatinine Plasma Lactic Acid Nishant 11.0 H* Magnesium Total Bilirubin AST ALT Troponin I Urine Appearance Cloudy H Urine Protein 2+ H Urine Glucose (UA) Trace H Urine RBC 43 H Urine WBC 11 H Urine Bacteria Rare H Hyaline Casts 34 H Urine Mucus Few H Urine Yeast (Budding) Many H - Diagnostic Findings Chest x-ray: image reviewed CT scan - chest: image reviewed Assessment and Plan Plan: Cardiogenic shock/right-sided heart failure. The patient has positive JVDs, peripheral cyanosis, pulm vessel congestion, elevated proBNP level, minimal troponin leak, and evidence of chronic severe pulmonary hypertension right-sided failure. LV is preserved. Acute on chronic hypoxic respiratory failure currently on 2 L of oxygen by nasal cannula Acute lactic acidosis secondary to cardiogenic shock Peripheral edema Peripheral cyanosis Acute kidney injury secondary to above Altered mentation secondary to above Chronic obstructive pulmonary disease, appears stable on my evaluation Former tobacco dependence Chronic hypoxemic respiratory failure, normally maintained on 3 L/min nasal cannula Atrial fibrillation with controlled ventricular response, anticoagulated on Eliquis History of DVT Chronic lumbar back pain History of right proximal femur intertrochanteric fracture, status post right IM hip screw fixation History of breast cancer Plan Had a lengthy discussion with the family. Obviously, the patient is quite debilitated and carries a very poor prognosis. Based on our discussions, her CODE STATUS was switched to DNR DNI. Will continue oxygen supplementation to maintain saturation above 90% Will try to diurese this patient with IV Lasix 60 mg every 8 hours May support the patient with dobutamine as long as the heart rate tolerates. Will try low-dose dobutamine at 2.5 mcg/kg/min. Initiate low rate sodium bicarb infusion at rate of 50 cc an hour, a total of 150 mEq of sodium bicarb Monitor lactic acid levels Continue anticoagulation with Eliquis Jordan catheter is in place Empiric antibiotic coverage with IV cefepime Obtain urine and blood cultures Consult cardiology Extremely poor prognosis, may consider end-of-life care if the above-mentioned interventions fail. Time with Patient: Greater than 30
[2024-10-29] MEDS: FUROSEMIDE 10 MG/ML 10 ML VIAL IV SCH ×2 (14:21→21:13)
[2024-10-29] MEDS: LACTATED RINGERS 1,000 ML IV SCH (14:21)
[2024-10-29] MEDS ORDERED: HEPARIN SODIUM 1,000 UN/ML (10ML VL) IV PRN (15:08)
[2024-10-29] MEDS ORDERED: IPRATROPIUM-ALBUTEROL 3 ML NEB INHALATION PRN (15:19)
[2024-10-29 15:45] LABS: Glucose,Whole Blood 40 mg/dL (70-110)
[2024-10-29 15:45] LABS: Glucose,Whole Blood 36 mg/dL (70-110)
[2024-10-29] MEDS: DEXTROSE 50% SYRINGE 50 ML IVP ONE (15:45)
[2024-10-29] MEDS: IPRATROPIUM-ALBUTEROL 3 ML NEB INHALATION SCH (15:50)
[2024-10-29] MEDS: METOPROLOL SUCCINATE (ER) 25 MG TAB.ER.24H PO SCH ×2 (15:50→16:33)
--- NOTE | 2024-10-29 15:54 | P.HPIM ---
History of Present Illness H&P Date: 10/29/24 Chief Complaint: Altered Mental Status 79-year-old female presents emergency department for hypoxia as she is allegedly ANO x 1-2 at baseline. History of present illness obtained from patient along EMS. Patient was allegedly normal yesterday this morning she was found to be hypoxic with a oxygen measurement of approximately 82%. She was put on supplemental oxygen with improvement of her oxygen by EMS. Patient is full code. Patient denies any symptoms at this time. She was also found to be altered by senior care staff. Patient is a poor historian however denies any specific complaints at this time. She was hypoxic and she was placed on oxygen at 10 L nasal cannula. She was quite cyanotic. She had increased lower extremity edema. She had severe lactic acidosis with a lactic acid level of 11. Blood gas showed a pH of 7.23 with a pCO2 of 31 and pO2 of 77. White cell count of 12.4 with a heme of 16.7 and a platelet count of 167. She has an acute kidney injury with a creatinine of 1.8 and a BUN of 38. Serum bicarb is at 14. Sodium levels at 137. Chest x-ray was consistent with CHF/pulmonary edema. CAT scan of the chest was done and it showed cardiomegaly and CHF about the pleural effusion and diffuse groundglass pulmonary infiltrates consistent with CHF and a CAT scan of the abdomen showed no acute intra-abdominal abnormalities, there was cholelithiasis and severe atherosclerosis along with cardiomegaly and bilateral pleural effusion and p ulmonary edema. Review of Systems ROS unobtainable: due to mental status Past Medical History Past Medical History: Cancer, COPD, Hypertension Additional Past Medical History / Comment(s): R leg DVT, breast CA, History of Any Multi-Drug Resistant Organisms: None Reported Past Surgical History: Hysterectomy Past Anesthesia/Blood Transfusion Reactions: No Reported Reaction Past Psychological History: Anxiety, Depression Smoking Status: Former smoker Past Alcohol Use History: None Reported Past Drug Use History: None Reported - Past Family History Father History Unknown: Yes Medications and Allergies Home Medications Medication Instructions Recorded Confirmed Type Apixaban [Eliquis] 5 mg PO BID@0900,2100 08/18/21 10/29/24 History Melatonin 3 mg PO HS@2100 10/25/24 10/29/24 History Omeprazole [PriLOSEC] 20 mg PO HS@2100 24 12/22/24 History Sennosides/Docusate Sodium [Senna 1 tab PO BID@0900,209910/25/24 10/29/24 History Plus 8.6-50 mg Tablet] Sertraline [Zoloft] 100 mg PO DAILY@0900 10/25/24 10/29/24 History HYDROcodone/APAP 5-325MG [[place] 1 tab PO Q8H PRN #4 tab 10/27/24 10/29/24 Rx 5-325] Budesonide-Formot 160-4.5 Mcg 2 puff INHALATION RT-BID@0900,209910/29/2410/29 History [Symbicort 160-4.5 Mcg Inhaler] Dapagliflozin Propanediol [Farxiga] 10 mg PO DAILY@0900 10/29/24 10/29/24 History Furosemide [Lasix] 40 mg PO BID@0600,1300 10/29/24 10/29/24 History Ipratropium-Albuterol Nebulize 3 ml INHALATION RT-QID@09,13,17,10/29/24 10/29/24 History [Duoneb 0.5 mg-3 mg/3 ml Soln] Metoprolol Tartrate [Lopressor] 50 mg PO BID@0900,209910/29/24 10/29/24 History Pregabalin [Lyrica] 75 mg PO BID@0900,2100 10/29/24 10/29/24 History Allergies Allergy/AdvReac Type Severity Reaction Status Date / Time cephalexin [From Keflex] Allergy Unknown Verified 10/29/24 13:26 Penicillins Allergy Swelling Verified 10/29/24 09:06 Physical Exam Vitals: Vital Signs Pulse Resp BP Pulse Ox 10/29/24 11:42 80 18 86/69 93 L 10/29/24 09:03 89 24 93/70 99 Intake and Output 10/28/24 10/29/24 10/29/24 22:59 06:59 14:59 Other: Weight 54.431 kg General Impression: Alert and oriented x3/4, not in acute distress, slight pallor HEENT: Normocephalic atraumatic, extra-ocular movements intact, pupils equal and reactive to light bilaterally, mucous membranes moist. Cardiovascular: Heart regular rate and rhythm Chest: Able to complete full sentences, no retractions, no tachypnea Abdomen: abdomen soft, non-tender, non-distended, no organomegaly Musculoskeletal: Pulses present and equal in all extremities, no peripheral edema Motor: no focal deficits noted Neurological: CN II-XII grossly intact, no focal motor or sensory deficits noted Skin: Intact with no visualized rashes Psych: Normal affect and mood Results CBC & Chem 7: 10/29/24 09:09 10/29/24 09:09 Labs: Abnormal Lab Results - Last 24 Hours (Table) 10/29/24 10/29/24 10/29/24 Range/Units 09:09 09:09 09:09 WBC 12.4 H (3.8-10.6) k/uL RBC 5.65 H (3.80-5.40) m/uL Hgb 16.7 H (11.4-16.0) gm/dL Hct 54.4 H (34.0-46.0) % MCHC 30.7 L (31.0-37.0) g/dL RDW 16.3 H (11.5-15.5) % Neutrophils # 10.0 H (1.3-7.7) k/uL PT 18.5 H (10.0-12.5) sec INR 1.8 H (<1.2) D-Dimer 4.64 H (<0.60) mg/L FEU ABG pH (7.35-7.45) ABG pCO2 (35-45) mmHg ABG pO2 (83-108) mmHg ABG HCO3 (21-25) mmol/L ABG Total CO2 (19-24) mmol/L ABG O2 Saturation (94-97) % Carbon Dioxide 14 L (22-30) mmol/L BUN 38 H (7-17) mg/dL Creatinine 1.80 H (0.52-1.04) mg/dL Plasma Lactic Acid Nishant (0.7-2.0) mmol/L Magnesium 2.6 H (1.6-2.3) mg/dL Total Bilirubin 3.5 H (0.2-1.3) mg/dL AST 126 H (14-36) U/L ALT 55 H (4-34) U/L Troponin I (0.000-0.034) ng/mL Urine Appearance (Clear) Urine Protein (Negative) Urine Glucose (UA) (Negative) Urine RBC (0-5) /hpf Urine WBC (0-5) /hpf Urine Bacteria (None) /hpf Hyaline Casts (0-2) /lpf Urine Mucus (None) /hpf Urine Yeast (Budding) (None) /hpf 10/29/24 10/29/24 10/29/24 Range/Units 09:09 09:09 09:30 WBC (3.8-10.6) k/uL RBC (3.80-5.40) m/uL Hgb (11.4-16.0) gm/dL Hct (34.0-46.0) % MCHC (31.0-37.0) g/dL RDW (11.5-15.5) % Neutrophils # (1.3-7.7) k/uL PT (10.0-12.5) sec INR (<1.2) D-Dimer (<0.60) mg/L FEU ABG pH 7.23 L (7.35-7.45) ABG pCO2 31 L (35-45) mmHg ABG pO2 77 L (83-108) mmHg ABG HCO3 13 L (21-25) mmol/L ABG Total CO2 14 L (19-24) mmol/L ABG O2 Saturation 92.6 L (94-97) % Carbon Dioxide (22-30) mmol/L BUN (7-17) mg/dL Creatinine (0.52-1.04) mg/dL Plasma Lactic Acid Nishant 11.4 H* (0.7-2.0) mmol/L Magnesium (1.6-2.3) mg/dL Total Bilirubin (0.2-1.3) mg/dL AST (14-36) U/L ALT (4-34) U/L Troponin I 0.174 H* (0.000-0.034) ng/mL Urine Appearance (Clear) Urine Protein (Negative) Urine Glucose (UA) (Negative) Urine RBC (0-5) /hpf Urine WBC (0-5) /hpf Urine Bacteria (None) /hpf Hyaline Casts (0-2) /lpf Urine Mucus (None) /hpf Urine Yeast (Budding) (None) /hpf 12/22/24 12/22/24 Range/Units 11:50 12:38 WBC (3.8-10.6) k/uL RBC (3.80-5.40) m/uL Hgb (11.4-16.0) gm/dL Hct (34.0-46.0) % MCHC (31.0-37.0) g/dL RDW (11.5-15.5) % Neutrophils # (1.3-7.7) k/uL PT (10.0-12.5) sec INR (<1.2) D-Dimer (<0.60) mg/L FEU ABG pH (7.35-7.45) ABG pCO2 (35-45) mmHg ABG pO2 (83-108) mmHg ABG HCO3 (21-25) mmol/L ABG Total CO2 (19-24) mmol/L ABG O2 Saturation (94-97) % Carbon Dioxide (22-30) mmol/L BUN (7-17) mg/dL Creatinine (0.52-1.04) mg/dL Plasma Lactic Acid Nishant 11.0 H* (0.7-2.0) mmol/L Magnesium (1.6-2.3) mg/dL Total Bilirubin (0.2-1.3) mg/dL AST (14-36) U/L ALT (4-34) U/L Troponin I (0.000-0.034) ng/mL Urine Appearance Cloudy H (Clear) Urine Protein 2+ H (Negative) Urine Glucose (UA) Trace H (Negative) Urine RBC 43 H (0-5) /hpf Urine WBC 11 H (0-5) /hpf Urine Bacteria Rare H (None) /hpf Hyaline Casts 34 H (0-2) /lpf Urine Mucus Few H (None) /hpf Urine Yeast (Budding) Many H (None) /hpf Assessment and Plan Assessment: Acute exacerbation CHF/pulmonary edema/ cardiogenic shock/right-sided heart failure. The patient has positive JVDs, peripheral cyanosis, pulm vessel congestion, elevated proBNP level, minimal troponin leak, and evidence of chronic severe pulmonary hypertension right-sided failure. LV is preserved. -- Patient has been placed on Lasix 60 mg IV every 8 hours -- Dobutamine has been ordered for blood pressure support -Cardiology is consulted Acute on chronic hypoxic respiratory failure currently on 2 L of oxygen by nasal cannula; we will plan to titrate or wean as able maintaining O2 saturation above 90% Acute lactic acidosis secondary to cardiogenic shock; will monitor and trend lactic acid levels Acute kidney injury secondary to above Initiate low rate sodium bicarb infusion at rate of 50 cc an hour, a total of 150 mEq of sodium bicarb Altered mentation secondary to above; likely toxic metabolic encephalopathy Chronic obstructive pulmonary disease; not in exacerbation; new with home inhaler therapy Atrial fibrillation with controlled ventricular response, anticoagulated on Eliquis History of DVT; continue anticoagulation with Eliquis Chronic lumbar back pain DVT prophylaxis; SCDs/Eliquis CODE STATUS; full code
[2024-10-29] MEDS ORDERED: METOPROLOL SUCCINATE (ER) 25 MG TAB.ER.24H PO STA (15:55)
[2024-10-29] MEDS ORDERED: DEXTROSE 50% SYRINGE 50 ML IVP PRN (15:59)
[2024-10-29 16:00] LABS: Glucose,Whole Blood 64 mg/dL (70-110)
[2024-10-29] MEDS: DEXTROSE 5% IN WATER 1,000 ML with SODIUM BICARB (1 MEQ/ML) 150 ML IV SCH (16:03)
[2024-10-29 16:09] LABS: Glucose,Whole Blood 63 mg/dL (70-110)
[2024-10-29] MEDS: DEXTROSE 50% SYRINGE 50 ML IVP PRN (16:11)
[2024-10-29] MEDS: DOBUTamine DRIP 500 MG in DEXTROSE/WATER 1 250ML.BAG IV SCH (16:18)
[2024-10-29 16:29] LABS: Glucose,Whole Blood 183 mg/dL (70-110)
[2024-10-29] MEDS: HEPARIN SODIUM 1,000 UN/ML (10ML VL) IV ONE (16:29)
[2024-10-29] MEDS: HEPARIN SOD,PORK IN 0.45% NACL 25,000 UNIT in 0.45% NACL 1 250ML.BAG IV SCH (16:30)
[2024-10-29] MEDS: ASPIRIN 81 MG PO SCH (16:33)
[2024-10-29 16:50] LABS: Anisocytosis Slight; Basophils # (A) 0.1 k/uL (0-0.2); Basophils % (A) 0 %; Eosinophils % (A) 0 %; HCT 50.3 % (34.0-46.0); HGB 14.4 gm/dL (11.4-16.0); Hypochromasia Marked; Lymphocytes # (A) 1.1 k/uL (1.0-4.8); Lymphocytes % (A) 6 %; MCH 29.5 pg (25.0-35.0); MCHC 28.6 g/dL (31.0-37.0); Macrocytosis Moderate; Mean Platelet Volume 9.3; Monocytes # (A) 0.8 k/uL (0-1.0); Monocytes % (A) 4 %; Neutrophils # (A) 17.5 k/uL (1.3-7.7); Neutrophils % (A) 89 %; Platelet Count 164 k/uL (150-450); RBC 4.87 m/uL (3.80-5.40); RDW 16.1 % (11.5-15.5); WBC 19.6 k/uL (3.8-10.6)
[2024-10-29 16:51] LABS: MCV 103.3 fL (80.0-100.0)
[2024-10-29 17:35] LABS: Glucose,Whole Blood 146 mg/dL (70-110)
[2024-10-29] MEDS ORDERED: METOPROLOL TARTRATE 25 MG TAB PO SCH (21:00)
[2024-10-29] MEDS: ATORVASTATIN 40 MG TAB PO SCH (21:12)
[2024-10-29 23:11] LABS: Glucose,Whole Blood 185 mg/dL (70-110)
[2024-10-30] MEDS: CEFEPIME 2 GM in SODIUM CHLORIDE 0.9% 100 ML IVPB SCH (00:04)
[2024-10-30] MEDS: ONDANSETRON 4 MG/2 ML VIAL IVP PRN (02:37)
[2024-10-30 06:02] LABS: Anisocytosis Slight; Basophils % (A) 0 %; Eosinophils % (A) 0 %; HCT 43.1 % (34.0-46.0); HGB 13.4 gm/dL (11.4-16.0); Hypochromasia Moderate; Lymphocytes # (A) 1.4 k/uL (1.0-4.8); Lymphocytes % (A) 11 %; MCH 28.4 pg (25.0-35.0); MCHC 31.2 g/dL (31.0-37.0); Mean Platelet Volume 9.2; Monocytes # (A) 0.5 k/uL (0-1.0); Monocytes % (A) 4 %; Neutrophils # (A) 10.5 k/uL (1.3-7.7); Neutrophils % (A) 84 %; Platelet Count 142 k/uL (150-450); Poikilocytosis Slight; RBC 4.73 m/uL (3.80-5.40); RDW 16.9 % (11.5-15.5); WBC 12.5 k/uL (3.8-10.6)
[2024-10-30 06:06] LABS: INR 2.5 (<1.2)
[2024-10-30 07:13] LABS: African American GFR (CKD) 39 (>60 ml/min/1.73 sqM); Anion Gap 9 mmol/L; Blood Urea Nitrogen 47 mg/dL (7-17); Calcium 8.1 mg/dL (8.4-10.2); Carbon Dioxide 28 mmol/L (22-30); Chloride 99 mmol/L (98-107); Glucose 151 mg/dL (74-99); Non-African American GFR(CKD) 33 (>60 ml/min/1.73 sqM); Sodium 136 mmol/L (137-145)
[2024-10-30 07:22] LABS: Potassium 2.7 mmol/L (3.5-5.1)
[2024-10-30] MEDS ORDERED: Potassium Replacement Protocol 1 EACH MISC MISCELLANE PRN (07:43)
[2024-10-30] MEDS: PANTOPRAZOLE 40 MG/10 ML VIAL IV SCH (08:22)
[2024-10-30] MEDS: POTASSIUM BICARBONATE/CIT AC 20 MEQ TABLET.EFF NG-TUBE SCH (08:22)
[2024-10-30] MEDS: POTASSIUM CHLORIDE 10 MEQ in WATER FOR INJECTION 1 100ML.BAG IVPB SCH (08:50)
--- NOTE | 2024-10-30 08:55 | XR ---
EXAMINATION TYPE: XR chest 1V portable DATE OF EXAM: 10/30/2024 COMPARISON: 10/29/2024 CLINICAL INDICATION: Female, 79 years old with history of CHF; , TECHNIQUE: XR chest 1V portable views of the chest. FINDINGS: Small bilateral effusion. Diffuse interstitial pattern with bilateral consolidation. Large calcificat ion right upper quadrant could be related to the liver or gallbladder. Previous vertebroplasty. Osteo penia and degenerative change of the spine. Atherosclerotic change aorta. IMPRESSION: 1. Bilateral consolidation and small effusion correlate for pneumonia otherwise consider CHF. [facility], , 10/30/2024 8:53 AM
[2024-10-30 11:32] LABS: Glucose,Whole Blood 117 mg/dL (70-110)
[2024-10-30] MEDS: CEFEPIME 1 GM in SODIUM CHLORIDE 0.9% 50 ML IVPB SCH (12:09)
--- NOTE | 2024-10-30 12:21 | P.PN ---
Subjective Progress Note Date: 10/30/24 Principal diagnosis: Acute on chronic hypoxic respiratory failure secondary to acute cardiogenic shock and underlying COPD 79-year-old female patient, transferred from [facility] on the leg for diminished level of consciousness, hypoxemia, extreme lethargy, weakness, and she was in a shock state. Evaluated the patient in the emergency department. She was hypoxic and she was placed on oxygen at 10 L nasal cannula. She was quite cyanotic. She had increased lower extremity edema. She had severe lactic acidosis with a lactic acid level of 11. Blood gas showed a pH of 7.23 with a pCO2 of 31 and pO2 of 77. White cell count of 12.4 with a heme of 16.7 and a platelet count of 167. She has an acute kidney injury with a creatinine of 1.8 and a BUN of 38. Serum bicarb is at 14. Sodium levels at 137. Chest x-ray was consistent with CHF/pulmonary edema. CAT scan of the chest was done and it showed cardiomegaly and CHF about the pleural effusion and diffuse groundglass pulmonary infiltrates consistent with CHF and a CAT scan of the abdomen showed no acute intra-abdominal abnormalities, there was cholelithiasis and severe atherosclerosis along with cardiomegaly and bilateral pleural effusion and pulmonary edema. The patient was discharged from the hospital on 10/27/2024. She is known to have severe pulmonary hypertension and right-sided failure. LV function is preserved. She has been quite debilitated for some time. She has COPD and chronic hypoxic respiratory failure addition to history of atrial fibrillation. She has previous history of breast cancer and DVT maintained on anticoagulation with Eliquis. Family is at the bedside. No nausea. No vomi ting. No significant abdominal pain. Mental status is altered. Extremities are cold and clammy consistent with cardiogenic shock. Patient was on 10/30/2024, patient is in the ICU, on 10 L high flow nasal cannula, patient is still on dobutamine at 2.5 mg/kg/min still on heparin drip, on D5W with 3 A of bicarb running at 50 cc/h she is empirically on cefepime and she is receiving Lasix 60 mg IV push every 8 hours. Her echocardiogram on this admission showed good LV function however echocardiogram on her last admission showed ejection fraction of 40 to 45%. Patient had a presentation of car diogenic shock, with hypotension, severe metabolic acidosis, and right-sided congestive heart failure. Patient is known to have severe pulmonary hypertension. Considering her presentation, patient seems to be much better today compared to yesterday. Feeling better, breathing easier. Nonetheless still requiring multiple drips as noted. WBC count is 12.5 hemoglobin 13.4 PTT is 48.6/therapeutic potassium is low at 2.7, renal profile is improving BUN is 47 creatinine 1.5 bicarb is 28. Hence bicarb drip will be discontinued today. Viral screening on admission has been negative Objective - Vital Signs Vital signs: Vital Signs Temp 98.2 F 10/30/24 08:00 Pulse 102 H 10/30/24 12:04 Resp 13 10/30/24 11:00 BP 104/67 10/30/24 11:00 Pulse Ox 92 L 10/30/24 11:00 FiO2 Intake & Output 10/29/24 10/30/24 10/30/24 18:59 06:59 18:59 Intake Total 150 691.152 400 Output Total 241 1230 675 Balance -91 -538.848 -275 Weight 60.6 kg Intake: IV 150 550 400 Dextrose 5% in Water 1, 150 550 200 000 ml @ 50 mls/hr IV . Q23H BRYANT with Sodium Bicarb (1 Meq/ml) 150 ml Rx#:[id number] Potassium Chloride 10 meq 200 In Water For Injection 1 100ml.bag @ 100 mls/hr IVPB Q1HR BRYANT Rx#: [id number] Intake, IV Titration 41.152 Amount Heparin Sod,Pork in 0.45% 41.152 NaCl 25,000 unit In 0.45 % NaCl 1 250ml.bag @ 12 UNITS/KG/HR 6.532 mls/hr IV .Q24H BRYANT Rx#: [id number] Oral 100 Output: Urine 241 1230 675 Uretheral (Jordan) 100 400 Other: Voiding Method Indwelling Catheter Indwelling Catheter Indwelling Catheter - Exam General: Revealed 79-year-old female looks chronically ill and frail, not in distress. On 10 L high flow nasal cannula HEENT: Normocephalic atraumatic, PERRLA, EOMI, nonicteric, no neck masses no JVD no stridor Cardiovascular: Heart regular rate and rhythm Chest: Able to complete full sentences, no retractions, no tachypnea Abdomen: abdomen soft, non-tender, non-distended, no organomegaly extremities no clubbing or cyanosis, 1+ bipedal edema Musculoskeletal: Deformities and no limitation range of motion Neurologic: No gross focal neurologic deficit Skin: No rashes Psych: Normal mood, affect, normal mental status - Labs CBC & Chem 7: 10/30/24 05:23 10/30/24 05:23 Labs: Abnormal Lab Results - Last 24 Hours (Table) 10/29/24 10/29/24 10/29/24 Range/Units 11:50 12:38 14:42 WBC (3.8-10.6) k/uL Hct (34.0-46.0) % MCV (80.0-100.0) fL MCHC (31.0-37.0) g/dL RDW (11.5-15.5) % Plt Count (150-450) k/uL Neutrophils # (1.3-7.7) k/uL PT (10.0-12.5) sec INR (<1.2) APTT (22.0-30.0) sec Sodium (137-145) mmol/L Potassium (3.5-5.1) mmol/L BUN (7-17) mg/dL Creatinine (0.52-1.04) mg/dL Glucose (74-99) mg/dL POC Glucose (mg/dL) (70-110) mg/dL Plasma Lactic Acid Nishant 11.0 H* 11.2 H* (0.7-2.0) mmol/L Calcium (8.4-10.2) mg/dL Urine Appearance Cloudy H (Clear) Urine Protein 2+ H (Negative) Urine Glucose (UA) Trace H (Negative) Urine RBC 43 H (0-5) /hpf Urine WBC 11 H (0-5) /hpf Urine Bacteria Rare H (None) /hpf Hyaline Casts 34 H (0-2) /lpf Urine Mucus Few H (None) /hpf Urine Yeast (Budding) Many H (None) /hpf 10/29/24 10/29/24 10/29/24 Range/Units 15:41 15:42 15:58 WBC (3.8-10.6) k/uL Hct (34.0-46.0) % MCV (80.0-100.0) fL MCHC (31.0-37.0) g/dL RDW (11.5-15.5) % Plt Count (150-450) k/uL Neutrophils # (1.3-7.7) k/uL PT (10.0-12.5) sec INR (<1.2) APTT (22.0-30.0) sec Sodium (137-145) mmol/L Potassium (3.5-5.1) mmol/L BUN (7-17) mg/dL Creatinine (0.52-1.04) mg/dL Glucose (74-99) mg/dL POC Glucose (mg/dL) 40 L* 36 L* 64 L (70-110) mg/dL Plasma Lactic Acid Nishant (0.7-2.0) mmol/L Calcium (8.4-10.2) mg/dL Urine Appearance (Clear) Urine Protein (Negative) Urine Glucose (UA) (Negative) Urine RBC (0-5) /hpf Urine WBC (0-5) /hpf Urine Bacteria (None) /hpf Hyaline Casts (0-2) /lpf Urine Mucus (None) /hpf Urine Yeast (Budding) (None) /hpf 10/29/24 10/29/24 10/29/24 Range/Units 16:07 16:24 16:32 WBC 19.6 H (3.8-10.6) k/uL Hct 50.3 H (34.0-46.0) % MCV 103.3 H D (80.0-100.0) fL MCHC 28.6 L (31.0-37.0) g/dL RDW 16.1 H (11.5-15.5) % Plt Count (150-450) k/uL Neutrophils # 17.5 H (1.3-7.7) k/uL PT (10.0-12.5) sec INR (<1.2) APTT (22.0-30.0) sec Sodium (137-145) mmol/L Potassium (3.5-5.1) mmol/L BUN (7-17) mg/dL Creatinine (0.52-1.04) mg/dL Glucose (74-99) mg/dL POC Glucose (mg/dL) 63 L 183 H (70-110) mg/dL Plasma Lactic Acid Nishant (0.7-2.0) mmol/L Calcium (8.4-10.2) mg/dL Urine Appearance (Clear) Urine Protein (Negative) Urine Glucose (UA) (Negative) Urine RBC (0-5) /hpf Urine WBC (0-5) /hpf Urine Bacteria (None) /hpf Hyaline Casts (0-2) /lpf Urine Mucus (None) /hpf Urine Yeast (Budding) (None) /hpf 10/29/24 10/29/24 10/29/24 Range/Units 17:34 21:33 21:33 WBC (3.8-10.6) k/uL Hct (34.0-46.0) % MCV (80.0-100.0) fL MCHC (31.0-37.0) g/dL RDW (11.5-15.5) % Plt Count (150-450) k/uL Neutrophils # (1.3-7.7) k/uL PT (10.0-12.5) sec INR (<1.2) APTT >200.0 H* (22.0-30.0) sec Sodium (137-145) mmol/L Potassium (3.5-5.1) mmol/L BUN (7-17) mg/dL Creatinine (0.52-1.04) mg/dL Glucose (74-99) mg/dL POC Glucose (mg/dL) 146 H (70-110) mg/dL Plasma Lactic Acid Nishant 8.7 H* (0.7-2.0) mmol/L Calcium (8.4-10.2) mg/dL Urine Appearance (Clear) Urine Protein (Negative) Urine Glucose (UA) (Negative) Urine RBC (0-5) /hpf Urine WBC (0-5) /hpf Urine Bacteria (None) /hpf Hyaline Casts (0-2) /lpf Urine Mucus (None) /hpf Urine Yeast (Budding) (None) /hpf 10/29/24 10/30/24 10/30/24 Range/Units 23:09 05:23 05:23 WBC 12.5 H (3.8-10.6) k/uL Hct (34.0-46.0) % MCV (80.0-100.0) fL MCHC (31.0-37.0) g/dL RDW 16.9 H (11.5-15.5) % Plt Count 142 L (150-450) k/uL Neutrophils # 10.5 H (1.3-7.7) k/uL PT (10.0-12.5) sec INR (<1.2) APTT (22.0-30.0) sec Sodium 136 L (137-145) mmol/L Potassium 2.7 L* (3.5-5.1) mmol/L BUN 47 H (7-17) mg/dL Creatinine 1.50 H (0.52-1.04) mg/dL Glucose 151 H (74-99) mg/dL POC Glucose (mg/dL) 185 H (70-110) mg/dL Plasma Lactic Acid Nishant (0.7-2.0) mmol/L Calcium 8.1 L (8.4-10.2) mg/dL Urine Appearance (Clear) Urine Protein (Negative) Urine Glucose (UA) (Negative) Urine RBC (0-5) /hpf Urine WBC (0-5) /hpf Urine Bacteria (None) /hpf Hyaline Casts (0-2) /lpf Urine Mucus (None) /hpf Urine Yeast (Budding) (None) /hpf 10/30/24 10/30/24 10/30/24 Range/Units 05:23 05:23 08:40 WBC (3.8-10.6) k/uL Hct (34.0-46.0) % MCV (80.0-100.0) fL MCHC (31.0-37.0) g/dL RDW (11.5-15.5) % Plt Count (150-450) k/uL Neutrophils # (1.3-7.7) k/uL PT 25.0 H (10.0-12.5) sec INR 2.5 H (<1.2) APTT (22.0-30.0) sec Sodium (137-145) mmol/L Potassium (3.5-5.1) mmol/L BUN (7-17) mg/dL Creatinine (0.52-1.04) mg/dL Glucose (74-99) mg/dL POC Glucose (mg/dL) (70-110) mg/dL Plasma Lactic Acid Nishant 2.6 H* 2.3 H* (0.7-2.0) mmol/L Calcium (8.4-10.2) mg/dL Urine Appearance (Clear) Urine Protein (Negative) Urine Glucose (UA) (Negative) Urine RBC (0-5) /hpf Urine WBC (0-5) /hpf Urine Bacteria (None) /hpf Hyaline Casts (0-2) /lpf Urine Mucus (None) /hpf Urine Yeast (Budding) (None) /hpf 10/30/24 10/30/24 Range/Units 11:31 11:33 WBC (3.8-10.6) k/uL Hct (34.0-46.0) % MCV (80.0-100.0) fL MCHC (31.0-37.0) g/dL RDW (11.5-15.5) % Plt Count (150-450) k/uL Neutrophils # (1.3-7.7) k/uL PT (10.0-12.5) sec INR (<1.2) APTT 48.6 H (22.0-30.0) sec Sodium (137-145) mmol/L Potassium (3.5-5.1) mmol/L BUN (7-17) mg/dL Creatinine (0.52-1.04) mg/dL Glucose (74-99) mg/dL POC Glucose (mg/dL) 117 H (70-110) mg/dL Plasma Lactic Acid Nishant (0.7-2.0) mmol/L Calcium (8.4-10.2) mg/dL Urine Appearance (Clear) Urine Protein (Negative) Urine Glucose (UA) (Negative) Urine RBC (0-5) /hpf Urine WBC (0-5) /hpf Urine Bacteria (None) /hpf Hyaline Casts (0-2) /lpf Urine Mucus (None) /hpf Urine Yeast (Budding) (None) /hpf Assessment and Plan Assessment: Impression: Cardiogenic shock/right-sided heart failure. Echocardiogram on this admission seem to be normal however recent echocardiogram on the last admission showed LV dysfunction ejection fraction of 40 to 45% Acute on chronic hypoxic respiratory failure currently on 2 L of oxygen by nasal cannula Acute kidney injury secondary to above Chronic obstructive pulmonary disease Chronic hypoxemic respiratory failure, normally maintained on 3 L/min nasal cannula, secondary to COPD Atrial fibrillation with controlled ventricular response, anticoagulated on Eliquis History of DVT Chronic lumbar back pain History of right proximal femur intertrochanteric fracture, status post right IM hip screw fixation History of breast cancer Recommendation: Continue to monitor in ICU Continue oxygen and titrate accordingly Continue diuretics/Lasix 60 every 8 hours Continue dobutamine Discontinue bicarb drip Continue Eliquis Continue Jordan catheter Continue empiric antibiotics coverage with cefepime, awaiting urine and blood cultures Prognosis is poor and guarded Will continue to follow Patient is critically ill Critical care time is over 30 minutes Time with Patient: Greater than 30
[2024-10-30] MEDS: HYDROmorphone 0.5 MG/0.5 ML SYRINGE IVP PRN (14:32)
--- NOTE | 2024-10-30 14:44 | P.CRDCN ---
History of Present Illness Consult date: 10/30/24 History of present illness: HISTORY OF PRESENTING ILLNESS 79-year-old female who is a resident of [facility] was transferred to [facility] on 10/29/2024 because of diminished level of consciousness, extreme lethargy, generalized weakness, hypoxemia. On admission she was noticed to be hypoxic on 10 L of oxygen, appeared cyanotic and had lower extremity edema. She had severe lactic acidosis with lactate reaching 11, ABG showing acidosis with pH 7.2, pCO2 31, pO2 77. He was discharged to [facility] on 10/27/2024. On last admission echocardiogram showed preserved LV systolic function however severe pulmonary hypertension, right-sided heart failure with RV dilatation. She also has COPD, chronic hypoxic respiratory failure, atrial fibrillation, DVT, history of breast cancer. She is on anticoagulation with Eliquis., Creatinine was 1.8, BUN was 38. Bicarb was 40. Chest x-ray showed signs of pulmonary congestion with increased interstitial marking. CT chest showed CHF with pleural effusion and groundglass pulmonary infiltrates Troponin was elevated at 0.17, NT-proBNP 20,000, REVIEW OF SYSTEMS Could not be obtained as patient is somnolent PHYSICAL EXAMINATION Neck: Mildly elevated jugular venous distention. Lungs: Crackles and rhonchi audible in bilateral lung pugh. Heart: Irregularly irregular pulse, S1-S2 audible, mild systolic murmur audible. Abdomen: Soft nontender, positive bowel sounds. Extremities: 1-2+ pitting edema bilateral lower extremity. Disuse atrophy noticed in bilateral legs suggestive of that patient mostly bedbound. Neuro: Drowsy, responds to verbal stimuli, not following commands, detailed exam was not performed ASSESSMENT Acute on chronic hypoxic and hypercapnic respiratory failure Lactic acidosis due to above. Currently resolving Acute HFpEF exacerbation Right-sided heart failure with signs of cor pulmonale. Severe pulmonary hypertension, CLIFFORD with cardiorenal syndrome Cardiac testing 10/2024, echo: LV EF 55%, severe RV dilatation with severe pulmonary hypertension, moderate tricuspid regurgitation, Signs of pressure and volume overload, with flattening of septum PLAN Agree with dobutamine drip. Agree with IV Lasix 60 mg 3 times daily. She has made good amount of urine and fluid status appears to be improved. Tomorrow I will transition to Lasix 40 mg IV twice daily. Discontinue Eliquis. Instead keep patient on IV heparin drip for 48 hours Aspirin 81 mg, Lipitor 40 mg, Metoprolol 25 mg daily. Supplemental oxygen, keep SpO2 more than 92 to help with pulmonary hypertension. Supportive ICU care. Infectious workup to rule out sepsis and pneumonia as per ICU and primary team Once patient is more stable, recommend outpatient ischemic evaluation after discussing the goals of the care with the family. Past Medical History Past Medical History: Cancer, COPD, Hypertension Additional Past Medical History / Comment(s): R leg DVT, breast CA, 2022 broke right hip and compound fracture vertebrae History of Any Multi-Drug Resistant Organisms: None Reported Past Surgical History: Hysterectomy Additional Past Surgical History / Comment(s): lymphectomy on right side d/t breast CA, bladder suspension, hernia repair Past Anesthesia/Blood Transfusion Reactions: No Reported Reaction Past Psychological History: Anxiety Additional Psychological History / Comment(s): increased anxiety during night Smoking Status: Former smoker Past Alcohol Use History: None Reported Past Drug Use History: None Reported - Past Family History Father History Unknown: Yes Additional Family Medical History / Comment(s): emphysema Medications and Allergies Home Medications Medication Instructions Recorded Confirmed Type Apixaban [Eliquis] 5 mg PO BID@0900,2100 08/18/21 10/29/24 History Melatonin 3 mg PO HS@209910/25/24 10/29/24 History Omeprazole [PriLOSEC] 20 mg PO HS@209910/25/24 10/29/24 History Sennosides/Docusate Sodium [Senna 1 tab PO BID@0900,2100 10/25/24 10/29/24 History Plus 8.6-50 mg Tablet] Sertraline [Zoloft] 100 mg PO DAILY@0900 10/25/24 10/29/24 History HYDROcodone/APAP 5-325MG [Spooner 1 tab PO Q8H PRN #4 tab 10/27/24 10/29/24 Rx 5-325] Budesonide-Formot 160-4.5 Mcg 2 puff INHALATION RT-BID@0900,209910/29/24 10/29/24 History [Symbicort 160-4.5 Mcg Inhaler] Dapagliflozin Propanediol [Farxiga] 10 mg PO DAILY@0900 10/29/24 10/29/24 History Furosemide [Lasix] 40 mg PO BID@0600,1300 10/29/24 10/29/24 History Ipratropium-Albuterol Nebulize 3 ml INHALATION RT-QID@09,13,17,21 10/29/24 10/29/24 History [Duoneb 0.5 mg-3 mg/3 ml Soln] Metoprolol Tartrate [Lopressor] 50 mg PO BID@0900,2100 10/29/24 10/29/24 History Pregabalin [Lyrica] 75 mg PO BID@0900,209910/29/24 10/29/24 History Allergies Allergy/AdvReac Type Severity Reaction Status Date / Time cephalexin [From Keflex] Allergy Unknown Verified 10/29/24 13:26 cinnamon Allergy Anaphylaxis Verified 10/29/24 19:03 Penicillins Allergy Swelling Verified 10/29/24 09:06 Physical Exam Vitals: Vital Signs Temp Pulse Resp BP Pulse Ox 10/30/24 12:30 122 H 15 115/75 100 10/30/24 12:04 102 H 10/30/24 12:00 98.4 F 110 H 22 128/87 94 L 10/30/24 11:46 108 H 10/30/24 11:30 120 H 37 H 116/78 86 L 10/30/24 11:00 98 13 104/67 92 L 10/30/24 10:30 96 14 111/72 92 L 10/30/24 10:00 114 H 13 112/78 94 L 10/30/24 09:30 104 H 14 125/83 97 10/30/24 09:02 112 H 10/30/24 09:00 114 H 14 94/66 98 10/30/24 08:49 118 H 95 10/30/24 08:30 101 H 22 106/83 89 L 10/30/24 08:00 98.2 F 101 H 14 108/66 95 10/30/24 07:30 114 H 16 95/62 95 10/30/24 07:00 96 13 89/62 96 10/30/24 06:30 89 13 81/53 96 10/30/24 06:00 91 14 103/79 97 10/30/24 05:30 109 H 18 97/65 96 10/30/24 05:00 93 22 82/58 94 L 10/30/24 04:30 104 H 12 85/52 96 10/30/24 04:17 101 H 20 10/30/24 04:12 95 10/30/24 04:09 94 20 10/30/24 04:00 98.6 F 91 12 84/55 99 10/30/24 03:30 86 12 84/66 99 10/30/24 03:00 97 11 L 86/58 97 10/30/24 02:30 104 H 11 L 94/67 95 10/30/24 02:00 114 H 26 H 98/61 90 L 10/30/24 01:30 109 H 12 93/67 97 10/30/24 01:00 111 H 12 91/62 96 10/30/24 00:30 112 H 12 87/65 96 10/30/24 00:15 94 20 10/30/24 00:12 84 11 L 87/65 97 10/30/24 00:07 92 20 10/30/24 00:00 97.6 F 91 12 91/59 96 10/29/24 23:45 97 11 L 91/59 97 10/29/24 23:30 84 11 L 86/66 95 10/29/24 23:15 80 11 L 86/66 96 10/29/24 23:00 90 11 L 83/60 95 10/29/24 22:45 85 13 83/60 95 10/29/24 22:30 82 12 77/56 95 10/29/24 22:15 77 12 77/56 90 L 10/29/24 22:00 87 11 L 86/67 87 L 10/29/24 21:45 91 12 86/67 84 L 10/29/24 21:30 83 22 86/66 87 L 10/29/24 21:15 92 36 H 86/66 85 L 10/29/24 21:00 87 13 91/69 86 L 10/29/24 20:45 84 12 91/69 86 L 10/29/24 20:30 75 12 105/84 84 L 10/29/24 20:15 109 H 12 105/84 81 L 10/29/24 20:00 97.4 F L 93 13 115/60 88 L 10/29/24 19:53 98 22 10/29/24 19:51 87 L 10/29/24 19:47 77 22 10/29/24 19:45 73 15 100/67 86 L 10/29/24 19:30 103 H 18 92/72 80 L 10/29/24 19:15 114 H 21 122/75 90 L 10/29/24 19:00 112 H 16 100/48 86 L 10/29/24 18:45 110 H 24 94/78 80 L 10/29/24 18:30 90 23 95/55 84 L 10/29/24 18:15 82 25 H 103/79 83 L 10/29/24 18:00 87 25 H 85/56 88 L 10/29/24 17:45 96 18 103/74 87 L 10/29/24 17:30 106 H 20 101/77 90 L 10/29/24 17:15 97 13 101/79 92 L 10/29/24 17:00 88 14 111/77 85 L 10/29/24 16:45 84 14 97/81 83 L 10/29/24 16:30 86 14 91 L 10/29/24 16:15 92 14 104/71 91 L 10/29/24 16:01 92 10/29/24 16:00 89 17 97 10/29/24 15:56 95 10/29/24 15:50 92 10/29/24 15:45 96.8 F L 101 H 23 105/67 87 L 10/29/24 15:03 98.1 F 115 H 20 117/70 94 L 10/29/24 14:56 92 20 100/74 10/29/24 14:48 113 H 20 111/60 91 L Intake and Output 10/29/24 10/30/24 10/30/24 22:59 06:59 14:59 Intake Total 441.152 400 500 Output Total 815 214 8486 Balance -84.848 -545 -500 Intake: IV 300 400 500 Dextrose 5% in Water 1, 300 400 300 000 ml @ 50 mls/hr IV . Q23H BRYANT with Sodium Bicarb (1 Meq/ml) 150 ml Rx#:[id number] Potassium Chloride 10 meq 200 In Water For Injection 1 100ml.bag @ 100 mls/hr IVPB Q1HR BRYANT Rx#: [id number] Intake, IV Titration 41.152 0 Amount Heparin Sod,Pork in 0.45% 41.152 0 NaCl 25,000 unit In 0.45 % NaCl 1 250ml.bag @ 12 UNITS/KG/HR 6.532 mls/hr IV .Q24H BRYANT Rx#: [id number] Oral 100 Output: Urine 534 591 2487 Uretheral (Jordan) 200 300 Other: Voiding Method Indwelling Catheter Indwelling Catheter Indwelling Catheter Weight 60.6 kg Results 10/30/24 05:23 10/30/24 05:23 Coagulation 10/29/24 10/30/24 10/30/24 Range/Units 21:33 05:23 11:33 PT 25.0 H (10.0-12.5) sec APTT >200.0 H* 48.6 H (22.0-30.0) sec CBC 10/29/24 10/30/24 Range/Units 16:32 05:23 WBC 19.6 H 12.5 H (3.8-10.6) k/uL RBC 4.87 4.73 (3.80-5.40) m/uL Hgb 14.4 13.4 (11.4-16.0) gm/dL Hct 50.3 H 43.1 (34.0-46.0) % Plt Count 164 142 L (150-450) k/uL Comprehensive Metabolic Panel 10/30/24 Range/Units 05:23 Sodium 136 L (137-145) mmol/L Potassium 2.7 L* (3.5-5.1) mmol/L Chloride 99 (98-107) mmol/L Carbon Dioxide 28 (22-30) mmol/L BUN 47 H (7-17) mg/dL Creatinine 1.50 H (0.52-1.04) mg/dL Glucose 151 H (74-99) mg/dL Calcium 8.1 L (8.4-10.2) mg/dL Current Medications Generic Name Dose Route Start Last Admin Trade Name Freq PRN Reason Stop Dose Admin Albuterol/Ipratropium 3 ml 10/29/24 15:19 Ipratropium-Albuterol 3 Ml Neb INHALATION RT-Q2H PRN Shortness Of Breath Or Wheezing Albuterol/Ipratropium 3 ml 10/29/24 16:00 10/30/24 11:46 Ipratropium-Albuterol 3 Ml Neb INHALATION 3 ml RT-Q4H BRYANT Administration Aspirin 81 mg 10/29/24 15:15 10/30/24 08:22 Aspirin 81 Mg PO 81 mg DAILY BRYANT Administration Atorvastatin Calcium 40 mg 12/22/24 21:00 10/29/24 21:12 Atorvastatin 40 Mg Tab PO 40 mg HS BRYANT Administration Dextrose/Water 25 ml 10/29/24 15:59 Dextrose 50% Syringe 50 Ml IVP PER PROTOCOL PRN Hypoglycemia Protocol Dextrose/Water 50 ml 10/29/24 15:59 10/29/24 16:11 Dextrose 50% Syringe 50 Ml IVP 50 ml PER PROTOCOL PRN Administration Hypoglycemia Protocol Furosemide 60 mg 10/29/24 22:00 10/30/24 14:13 Furosemide 10 Mg/Ml 10 Ml Vial IV 60 mg Q8H BRYANT Administration Heparin Sodium (Porcine) 0 unit 10/29/24 15:08 Heparin Sodium 1,000 Un/Ml (10ml Vl) IV PER PROTOCOL PRN Low PTT Protocol Hydromorphone HCl 0.5 mg 10/30/24 13:16 10/30/24 14:32 Hydromorphone 0.5 Mg/0.5 Ml Syringe IVP 0.5 mg Q4H PRN Administration Severe Pain (Scale 7 to 10) Heparin Sodium/Sodium Chloride 250 mls @ 6.532 mls/hr 10/29/24 15:15 10/30/24 00:45 25,000 unit/ Sodium Chloride IV 8 units/kg/hr .Q24H BRYANT 4.354 mls/hr Titration Protocol 12 UNITS/KG/HR Dobutamine HCl/Dextrose 500 mg 250 mls @ 4.082 mls/hr 10/29/24 16:15 10/29/24 16:18 / IV Solution IV 2.5 mcg/kg/min .Q24H BRYANT 4.082 mls/hr Administration 2.5 MCG/KG/MIN Cefepime HCl 1 gm/ Sodium 50 mls @ 12.5 mls/hr 10/30/24 12:00 10/30/24 12:09 Chloride IVPB 12.5 mls/hr Q12H BRYANT Administration Lorazepam 1 mg 10/30/24 13:16 Lorazepam 2 Mg/Ml Inj IV Q4H PRN Anxiety Metoprolol Succinate 25 mg 10/29/24 16:15 10/30/24 08:28 Metoprolol Succinate (Er) 25 Mg Tab.Er.24h PO 25 mg DAILY BRYANT Administration Miscellaneous Information 1 each 10/30/24 07:43 Potassium Replacement Protocol 1 Each Misc MISCELLANE DAILY PRN Per Protocol Protocol Naloxone HCl 0.2 mg 10/29/24 12:44 Naloxone 0.4 Mg/Ml 1 Ml Vial IV Q2M PRN Opioid Reversal Ondansetron HCl 4 mg 10/29/24 18:19 10/30/24 02:37 Ondansetron 4 Mg/2 Ml Vial IVP 4 mg Q6HR PRN Administration Nausea And Vomiting Pantoprazole Sodium 40 mg 10/30/24 09:00 10/30/24 08:22 Pantoprazole 40 Mg/10 Ml Vial IV 40 mg DAILY BRYANT Administration Intake and Output 10/29/24 10/30/24 10/30/24 22:59 06:59 14:59 Intake Total 441.152 400 500 Output Total 693 926 5544 Balance -84.848 -545 -500 Intake: IV 300 400 500 Dextrose 5% in Water 1, 300 400 300 000 ml @ 50 mls/hr IV . Q23H BRYANT with Sodium Bicarb (1 Meq/ml) 150 ml Rx#:[id number] Potassium Chloride 10 meq 200 In Water For Injection 1 100ml.bag @ 100 mls/hr IVPB Q1HR BRYANT Rx#: [id number] Intake, IV Titration 41.152 0 Amount Heparin Sod,Pork in 0.45% 41.152 0 NaCl 25,000 unit In 0.45 % NaCl 1 250ml.bag @ 12 UNITS/KG/HR 6.532 mls/hr IV .Q24H BRYANT Rx#: [id number] Oral 100 Output: Urine 130 705 8938 Uretheral ([place]) 200 300 Other: Voiding Method Indwelling Catheter Indwelling Catheter Indwelling Catheter Weight 60.6 kg 10/30/24 05:23 10/30/24 05:23
[2024-10-31] MEDS: LORazepam 2 MG/ML INJ IV PRN (01:42)
--- NOTE | 2024-10-31 02:22 | PN ---
PROGRESS NOTE DATE OF SERVICE: 10/30/2024 SUBJECTIVE: This is a 79-year-old woman, who was admitted with COPD acute exacerbation, also had CHF acute exacerbation. The patient is on cardiogenic shock. Ejection fraction is found to be 40% to 45%. The patient is closely monitored in ICU at this time. PAST MEDICAL HISTORY: Reviewed. REVIEW OF SYSTEMS: Could not be taken. CURRENT MEDICATIONS: Reviewed. PHYSICAL EXAMINATION: VITAL SIGNS: Pulse is 122, blood pressure 150/70, respirations 15. HEENT: Conjunctivae normal. CARDIOVASCULAR: S1, S2. RESPIRATIONS: Bilateral scattered rhonchi and wheezes. ABDOMEN: Soft. NERVOUS SYSTEM: Nonfocal. LABORATORY DATA: WBC 12.5, sodium 136, potassium 2.6. Troponin is 0.174. ASSESSMENT: 1. Congestive heart failure acute exacerbation with acute on chronic systolic dysfunction, ejection fraction 40%. 2. Possible acute auo-[id number] elevation myocardial infarction. 3. Acute hypoxic respiratory failure. 4. Chronic obstructive pulmonary disease. 5. Atrial fibrillation. 6. History of deep venous thrombosis. 7. History of right femoral fracture. 8. Elevated D-dimer. RECOMMENDATIONS AND DISCUSSION: I recommend to continue current medications, continue symptomatic treatment. Otherwise, continue with monitoring. Chest x-ray reviewed. We will continue with empiric antibiotics with cefepime, heparin. Repeat labs. Guarded prognosis because of multiple complex medical issues. Further recommendations to follow. See orders for further details. MMODL / IJN: [id number] /
[2024-10-31 04:31] VITALS: TEMP 97.9
--- NOTE | 2024-10-31 07:42 | XR ---
EXAMINATION TYPE: XR chest 1V portable DATE OF EXAM: 10/31/2024 COMPARISON: 10/30/2024 CLINICAL INDICATION: Female, 79 years old with history of CHF; , TECHNIQUE: XR chest 1V portable views of the chest. FINDINGS: Small bilateral effusion. Diffuse interstitial pattern with bilateral consolidation. Large calcificat ion right upper quadrant could be related to the liver or gallbladder. Previous vertebroplasty. Osteo penia and degenerative change of the spine. Atherosclerotic change aorta. The heart is enlarged. IMPRESSION: 1. Bilateral consolidation and small effusion are stable. [facility] Shyam Arevalo, , 10/31/2024 7:40 AM
[2024-10-31 09:03] VITALS: BP 126/84; PULSE 116; RESP 22
--- NOTE | 2024-10-31 10:33 | P.PN ---
Subjective Progress Note Date: 10/31/24 HISTORY OF PRESENTING ILLNESS 79-year-old female who is a resident of [facility] was transferred to [facility] on 10/29/2024 because of diminished level of consciousness, extreme lethargy, generalized weakness, hypoxemia. On admission she was noticed to be hypoxic on 10 L of oxygen, appeared cyanotic and had lower extremity edema. She had severe lactic acidosis with lactate reaching 11, ABG showing acidosis with pH 7.2, pCO2 31, pO2 77. He was discharged to [facility] on 10/27/2024. On last admission echocardiogram showed preserved LV systolic function however severe pulmonary hypertension, right-sided heart failure with RV dilatation. She also has COPD, chronic hypoxic respiratory failure, atrial fibrillation, DVT, history of breast cancer. She is on anticoagulation with Eliquis., Creatinine was 1.8, BUN was 38. Bicarb was 40. Chest x-ray showed signs of pulmonary congestion with increased interstitial marking. CT chest showed CHF with pleural effusion and groundglass pulmonary infiltrates Troponin was elevated at 0.17, NT-proBNP 20,000, Progress note 10/31/2024 Patient is seen and examined at bedside this a.m. Appears to be sick. BP 126/84, heart rate 116 bpm, at this time patient's family has decided to opt for comfort measures. REVIEW OF SYSTEMS Could not be obtained as patient is somnolent PHYSICAL EXAMINATION Neck: Mildly elevated jugular venous distention. Lungs: Crackles and rhonchi audible in bilateral lung pugh. Heart: Irregularly irregular pulse, S1-S2 audible, mild systolic murmur audible. Abdomen: Soft nontender, positive bowel sounds. Extremities: 1-2+ pitting edema bilateral lower extremity. Disuse atrophy noticed in bilateral legs suggestive of that patient mostly bedbound. Neuro: Drowsy, responds to verbal stimuli, not following commands, detailed exam was not performed ASSESSMENT Acute on chronic hypoxic and hypercapnic respiratory failure Lactic acidosis due to above. Currently resolving Acute HFpEF exacerbation Right-sided heart failure with signs of cor pulmonale. Severe pulmonary hypertension, CLIFFORD with cardiorenal syndrome Cardiac testing 10/2024, echo: LV EF 55%, severe RV dilatation with severe pulmonary hypertension, moderate tricuspid regurgitation, Signs of pressure and volume overload, with flattening of septum PLAN Supplemental oxygen, keep SpO2 more than 92 for comfort Supportive ICU care. At this time patient's family has decided to opt for comfort care. She is off dobutamine at this time. Objective - Vital Signs Vital signs: Vital Signs Temp 97.9 F 10/31/24 04:00 Pulse 116 H 10/31/24 09:00 Resp 22 10/31/24 09:00 BP 126/84 10/31/24 09:00 Pulse Ox 95 10/31/24 09:00 FiO2 Intake & Output 10/30/24 10/31/24 10/31/24 18:59 06:59 18:59 Intake Total 850 Output Total 1305 1070 750 Balance -455 -1070 -750 Weight 64.2 kg Intake: IV 850 Dextrose 5% in Water 1, 350 000 ml @ 50 mls/hr IV . Q23H BRYANT with Sodium Bicarb (1 Meq/ml) 150 ml Rx#:[id number] Potassium Chloride 10 meq 500 In Water For Injection 1 100ml.bag @ 100 mls/hr IVPB Q1HR BRYANT Rx#: [id number] Output: Urine 1305 1070 750 Other: Voiding Method Indwelling Catheter Indwelling Catheter Indwelling Catheter - Labs CBC & Chem 7: 10/30/24 05:23 10/30/24 05:23 Labs: Abnormal Lab Results - Last 24 Hours (Table) 10/30/24 10/30/24 Range/Units 11:31 11:33 APTT 48.6 H (22.0-30.0) sec POC Glucose (mg/dL) 117 H (70-110) mg/dL Microbiology - Last 24 Hours (Table) 10/29/24 14:00 Blood Culture - Preliminary Blood 10/29/24 12:38 Urine Culture - Final Urine,Voided
--- NOTE | 2024-10-31 10:46 | P.DS ---
Providers Date of admission: 10/29/24 12:44 Expected date of discharge: 10/31/24 Attending physician: Bart Hinojosa Consults: 10/29/24 12:44 Consult Physician Routine Consulting Provider: Sam Delacruz Consult Reason/Comments: heart failure Do you want consulting provider notified?: Yes Consult Physician Stat Consulting Provider: Thuy Toney Consult Reason/Comments: icu patient Do you want consulting provider notified?: Already Contacted Primary care physician: Pablo Borges MD Hospital Course: Final diagnosis Congestive heart failure, acute exacerbation with acute on chronic systolic dysfunction, EF is 40% Possible acute NSTEMI Acute hypoxic respiratory failure Chronic obstructive pulmonary disease, acute exacerbation Atrial fibrillation History of DVT History of right femoral fracture Elevated D-dimer GI prophylaxis DVT prophylaxis No code Discharge disposition Patient is being transferred to [facility] hospice services GIP with comfort measure. Total time taken is greater than 35 minutes. Hospital course This is a 79-year-old female who was recently admitted with congestive heart failure along with COPD exacerbation with acute hypoxic respiratory failure. Patient was just recently hospitalized and discharged to [facility] and clinically declining with significant medical comorbidities. Patient requiring ICU admission maintained on pressor support having extreme agitation and restlessness and family was considering no code with possible hospice. Patient's daughter at bedside reported she never wanted to be this way and they have been discussing with other family members. Patient and family met with [facility] hospice and is meeting GIP criteria and is being transition to [facility] hospice services with comfort measures only. Please refer to other consultation notes for further HPI. Overall poor and guarded prognosis Physical exam: Gen: This is a 79-year-old female who is anxious and agitated and restless, elderly, ill-appearing HEENT: Head is atraumatic, normocephalic. Pupils equal, round. Sclerae is anicteric. NECK: Supple. No JVD. No lymphadenopathy. No thyromegaly. LUNGS: Diminished breath sounds bilaterally with coarse rhonchi and faint crackles noted. No intercostal retractions. HEART: S1, S2 are muffled, irregular ABDOMEN: Soft. Thin. Bowel sounds are present. No masses. No tenderness. EXTREMITIES: No pedal edema. No calf tenderness. Generalized edema noted NEUROLOGICAL: Patient is anxious at times and restless, minimally responsive. Diffusely weak Please refer to medication reconciliation sheet for a list of medications. The impression and plan of care has been dictated by Nancy Mack, Nurse Practitioner as directed. Dr. Ashish MD I have performed a history and examination and MDM of this patient, discussed the same with the dictator, and agree with the dictator's assessment and plan as written ,documented as a scribe. Based on total visit time, I have performed more than 50% of the visit. Patient Condition at Discharge: Poor Plan - Discharge Summary Discharge Rx Participant: Yes New Discharge Prescriptions: No Action Metoprolol Tartrate [Lopressor] 50 mg PO BID@0900,2099 Pregabalin [Lyrica] 75 mg PO BID@0900,2099 Budesonide-Formot 160-4.5 Mcg [Symbicort 160-4.5 Mcg Inhaler] 2 puff INHALATION RT-BID@09,2099 Apixaban [Eliquis] 5 mg PO BID@0900,2099 Sertraline [Zoloft] 100 mg PO DAILY@0900 Sennosides/Docusate Sodium [Senna Plus 8.6-50 mg Tablet] 1 tab PO B ID@899,2099 Omeprazole [PriLOSEC] 20 mg PO HS@2099 Melatonin 3 mg PO HS@2099 HYDROcodone/APAP 5-325MG [[place] 5-325] 1 tab PO Q8H PRN #4 tab PRN Reason: Pain Dapagliflozin Propanediol [Farxiga] 10 mg PO DAILY@0900 Furosemide [Lasix] 40 mg PO BID@0600,1300 Ipratropium-Albuterol Nebulize [Duoneb 0.5 mg-3 mg/3 ml Soln] 3 ml INHALATION RT-QID@,,, Discharge Medication List Apixaban [Eliquis] 5 mg PO BID@0900,2100 08/18/21 [History] Melatonin 3 mg PO HS@209910/25/24 [History] Omeprazole [PriLOSEC] 20 mg PO HS@209910/25/24 [History] Sennosides/Docusate Sodium [Senna Plus 8.6-50 mg Tablet] 1 tab PO BID@0900,209910/25/24 [History] Sertraline [Zoloft] 100 mg PO DAILY@0900 10/25/24 [History] HYDROcodone/APAP 5-325MG [[place] 5-325] 1 tab PO Q8H PRN #4 tab 10/27/24 [Rx] Budesonide-Formot 160-4.5 Mcg [Symbicort 160-4.5 Mcg Inhaler] 2 puff INHALATION RT-BID@0900,209910/29/24 [History] Dapagliflozin Propanediol [Farxiga] 10 mg PO DAILY@0900 10/29/24 [History] Furosemide [Lasix] 40 mg PO BID@0600,1300 10/29/24 [History] Ipratropium-Albuterol Nebulize [Duoneb 0.5 mg-3 mg/3 ml Soln] 3 ml INHALATION RT-QID@09,13,17,10/29/24 [History] Metoprolol Tartrate [Lopressor] 50 mg PO BID@0900,209910/29/24 [History] Pregabalin [Lyrica] 75 mg PO BID@0900,209910/29/24 [History] Follow up Appointment(s)/Referral(s): Hospice,[facility] [REFERRING] - 1 Week German Leahy MD [STAFF PHYSICIAN] - 1-2 days [facility] [NON-STAFF] - 1 Week Activity/Diet/Wound Care/Special Instructions: Patient is being admitted to [facility] with [facility] hospice services Discharge Disposition: HOME WITH HOSPICE
--- NOTE | 2024-10-31 10:57 | P.PN ---
Subjective Progress Note Date: 10/31/24 Principal diagnosis: Acute on chronic hypoxic respiratory failure secondary to acute cardiogenic shock and underlying COPD 79-year-old female patient, transferred from [facility] on the leg for diminished level of consciousness, hypoxemia, extreme lethargy, weakness, and she was in a shock state. Evaluated the patient in the emergency department. She was hypoxic and she was placed on oxygen at 10 L nasal cannula. She was quite cyanotic. She had increased lower extremity edema. She had severe lactic acidosis with a lactic acid level of 11. Blood gas showed a pH of 7.23 with a pCO2 of 31 and pO2 of 77. White cell count of 12.4 with a heme of 16.7 and a platelet count of 167. She has an acute kidney injury with a creatinine of 1.8 and a BUN of 38. Serum bicarb is at 14. Sodium levels at 137. Chest x-ray was consistent with CHF/pulmonary edema. CAT scan of the chest was done and it showed cardiomegaly and CHF about the pleural effusion and diffuse groundglass pulmonary infiltrates consistent with CHF and a CAT scan of the abdomen showed no acute intra-abdominal abnormalities, there was cholelithiasis and severe atherosclerosis along with cardiomegaly and bilateral pleural effusion and pulmonary edema. The patient was discharged from the hospital on 10/27/2024. She is known to have severe pulmonary hypertension and right-sided failure. LV function is preserved. She has been quite debilitated for some time. She has COPD and chronic hypoxic respiratory failure addition to history of atrial fibrillation. She has previous history of breast cancer and DVT maintained on anticoagulation with Eliquis. Family is at the bedside. No nausea. No vomi ting. No significant abdominal pain. Mental status is altered. Extremities are cold and clammy consistent with cardiogenic shock. Patient was on 10/30/2024, patient is in the ICU, on 10 L high flow nasal cannula, patient is still on dobutamine at 2.5 mg/kg/min still on heparin drip, on D5W with 3 A of bicarb running at 50 cc/h she is empirically on cefepime and she is receiving Lasix 60 mg IV push every 8 hours. Her echocardiogram on this admission showed good LV function however echocardiogram on her last admission showed ejection fraction of 40 to 45%. Patient had a presentation of car diogenic shock, with hypotension, severe metabolic acidosis, and right-sided congestive heart failure. Patient is known to have severe pulmonary hypertension. Considering her presentation, patient seems to be much better today compared to yesterday. Feeling better, breathing easier. Nonetheless still requiring multiple drips as noted. WBC count is 12.5 hemoglobin 13.4 PTT is 48.6/therapeutic potassium is low at 2.7, renal profile is improving BUN is 47 creatinine 1.5 bicarb is 28. Hence bicarb drip will be discontinued today. Viral screening on admission has been negative patient was seen today 10/31/2024 patient is about the same, family is at bedside, I had a long discussion yesterday with the family regarding her overall condition family expressed wishes about the DNR CODE STATUS and about comfort care measures. Today they have agreed to proceed with comfort care measures and hospice. The main concern is her quality of life. And after a brief discussion with the today, I recommended to proceed with comfort care based on the wishes of the family. Hospice has been already notified, and will discontinue dobutamine, discontinue heparin, and will proceed with comfort care. Objective - Vital Signs Vital signs: Vital Signs Temp 97.9 F 10/31/24 04:00 Pulse 116 H 10/31/24 09:00 Resp 22 10/31/24 09:00 BP 126/84 10/31/24 09:00 Pulse Ox 95 10/31/24 09:00 FiO2 Intake & Output 10/30/24 10/31/24 10/31/24 18:59 06:59 18:59 Intake Total 850 Output Total 1305 1070 750 Balance -455 -1070 -750 Weight 64.2 kg Intake: IV 850 Dextrose 5% in Water 1, 350 000 ml @ 50 mls/hr IV . Q23H BRYANT with Sodium Bicarb (1 Meq/ml) 150 ml Rx#:[id number] Potassium Chloride 10 meq 500 In Water For Injection 1 100ml.bag @ 100 mls/hr IVPB Q1HR BRYANT Rx#: [id number] Output: Urine 1305 1070 750 Other: Voiding Method Indwelling Catheter Indwelling Catheter Indwelling Catheter - Exam General: Revealed 79-year-old female looks chronically ill and frail, not in distress. On high flow nasal cannula HEENT: Normocephalic atraumatic, PERRLA, EOMI, nonicteric, no neck masses no JVD no stridor Cardiovascular: Heart regular rate and rhythm Chest: Able to complete full sentences, no retractions, no tachypnea Abdomen: abdomen soft, non-tender, non-distended, no organomegaly extremities no clubbing or cyanosis, 1+ bipedal edema Musculoskeletal: Deformities and no limitation range of motion Neurologic: No gross focal neurologic deficit Skin: No rashes Psych: Normal mood, affect, normal mental status - Labs CBC & Chem 7: 10/30/24 05:23 10/30/24 05:23 Labs: Abnormal Lab Results - Last 24 Hours (Table) 10/30/24 10/30/24 Range/Units 11:31 11:33 APTT 48.6 H (22.0-30.0) sec POC Glucose (mg/dL) 117 H (70-110) mg/dL Microbiology - Last 24 Hours (Table) 10/29/24 14:00 Blood Culture - Preliminary Blood 10/29/24 12:38 Urine Culture - Final Urine,Voided Assessment and Plan Assessment: Impression: Cardiogenic shock/right-sided heart failure. Echocardiogram on this admission seem to be normal however recent echocardiogram on the last admission showed LV dysfunction ejection fraction of 40 to 45% Acute on chronic hypoxic respiratory failure currently on 2 L of oxygen by nasal cannula Acute kidney injury secondary to above Chronic obstructive pulmonary disease Chronic hypoxemic respiratory failure, normally maintained on 3 L/min nasal cannula, secondary to COPD Atrial fibrillation with controlled ventricular response, anticoagulated on Eliquis History of DVT Chronic lumbar back pain History of right proximal femur intertrochanteric fracture, status post right IM hip screw fixation History of breast cancer \ recommendation: Cussed her condition with the family again today/ Family wishes comfort care measures, and we will proceed as such Time with Patient: Less than 30
== END 2024-10-31 09:53 | disposition hospice, inpatient (51) | DRG 640 ==
LOC: EC 08:59 → 2SICU 12:44
PROVIDERS: ADMIT Hospitalist; ATTEND Hospitalist
DX: E87.21 Acute metabolic acidosis (principal); G92.8 Other toxic encephalopathy; I50.43 Acute on chronic combined systolic (congestive) and diastolic (congestive) heart failure; J96.21 Acute and chronic respiratory failure with hypoxia; J96.22 Acute and chronic respiratory failure with hypercapnia; R57.0 Cardiogenic shock; I13.0 Hypertensive heart and chronic kidney disease with heart failure and stage 1 through stage 4 chronic kidney disease, or unspecified chronic kidney disease; J44.1 Chronic obstructive pulmonary disease with (acute) exacerbation; N17.9 Acute kidney failure, unspecified; Z11.52 Encounter for screening for COVID-19; Z51.5 Encounter for palliative care; Z66 Do not resuscitate; F32.A Depression, unspecified; F41.9 Anxiety disorder, unspecified; K80.20 Calculus of gallbladder without cholecystitis without obstruction; G89.29 Other chronic pain; I07.1 Rheumatic tricuspid insufficiency; I27.29 Other secondary pulmonary hypertension; I48.91 Unspecified atrial fibrillation; I50.82 Biventricular heart failure; N18.9 Chronic kidney disease, unspecified; Z79.01 Long term (current) use of anticoagulants; Z79.51 Long term (current) use of inhaled steroids; Z79.84 Long term (current) use of oral hypoglycemic drugs; Z79.899 Other long term (current) drug therapy; Z86.718 Personal history of other venous thrombosis and embolism; Z85.51 Personal history of malignant neoplasm of bladder; Z87.891 Personal history of nicotine dependence; Z90.710 Acquired absence of both cervix and uterus; Z87.81 Personal history of (healed) traumatic fracture; Z87.19 Personal history of other diseases of the digestive system; Z88.0 Allergy status to penicillin; Z88.1 Allergy status to other antibiotic agents
CPT/HCPCS: 36415; 36600; 70450; 71045; 71046; 71250; 74018; 74176; 80048; 80053; 81001; 82140; 82805; 83605; 83735; 83880; 84484; 85025; 85379; 85610; 85730; 87040; 87086; 87636; 93005; 94640; 96365; 96366; 96375; 99291

== ENCOUNTER 2024-10-31 09:02 | Inpatient (IN) | payer MEDICAID ==
[2024-10-31] MEDS ORDERED: DRY MOUTH SPRAY 59 SPRAY/59 ML SPRAY MUCOUS MEM PRN (09:41)
[2024-10-31] MEDS ORDERED: ATROPINE OPHTH SOLN 1% 5ML BTL SUBLINGUAL PRN (09:41)
[2024-10-31] MEDS ORDERED: ONDANSETRON 4 MG/2 ML VIAL IVP PRN (09:41)
[2024-10-31] MEDS ORDERED: LORazepam 2 MG/ML INJ IV PRN (09:41)
[2024-10-31] MEDS ORDERED: ACETAMINOPHEN SUPPOSITORY 650 MG SUPP RECTAL PRN (09:41)
[2024-10-31] MEDS ORDERED: GLYCOPYRROLATE 0.2 MG/ML 2 ML VIAL IVP PRN (09:41)
[2024-10-31] MEDS: SCOPOLAMINE 1 MG/72 HR PATCH TRANSDERM SCH (10:55)
[2024-10-31] MEDS: MORPHINE SULFATE (100 MG/2 ML) 100 MG in SODIUM CHLORIDE 0.9% 100 ML IV SCH (11:40)
[2024-10-31] MEDS: MORPHINE SULFATE 4 MG/ML SYRINGE IV PRN (13:28)
[2024-10-31 16:17] VITALS: PULSE 0; RESP 0
--- NOTE | 2024-10-31 20:40 | PN ---
PROGRESS NOTE DATE OF SERVICE: 10/31/2024 SUBJECTIVE: This is a 79-year-old woman, who was admitted with shortness of breath, multifactorial, COPD, CHF acute exacerbation, not improving. At this time, the family decided to go with comfort measures. The patient is being closely monitored. Morphine was initiated. PAST MEDICAL HISTORY: Reviewed. REVIEW OF SYSTEMS: Could not be taken. CURRENT MEDICATIONS: Reviewed. PHYSICAL EXAMINATION: VITAL SIGNS: Pulse is 100, blood pressure noted. HEENT: Conjunctivae normal. CARDIOVASCULAR: S1, S2. RESPIRATIONS: A few scattered rhonchi. ABDOMEN: Soft. NERVOUS SYSTEM: Nonfocal. LABORATORY DATA: Reviewed. ASSESSMENT: 1. Shortness of breath multifactorial with chronic obstructive pulmonary disease acute exacerbation as well as congestive heart failure acute exacerbation, ejection fraction 50% to 60%. 2. Atrial fibrillation. 3. History of breast cancer. 4. History of deep venous thrombosis. 5. Anxiety, depression. 6. NO CODE. NO CPR. NO VENT. 7. Hospice care. RECOMMENDATIONS: Recommend to continue current management and continue symptomatic treatment. Continue with hospice measures. Morphine drip, Ativan p.r.n. Prognosis extremely guarded. Discussed with family at length. Further recommendations to follow. MMODL / IJN: [id number] /
== END 2024-10-31 17:10 | disposition expired | DRG 951 ==
LOC: 2SICU 09:55
PROVIDERS: ADMIT Hospitalist; ATTEND Hospitalist
DX: Z51.5 Encounter for palliative care (principal); J44.1 Chronic obstructive pulmonary disease with (acute) exacerbation; Z66 Do not resuscitate; I48.91 Unspecified atrial fibrillation; F41.9 Anxiety disorder, unspecified; F32.A Depression, unspecified; I50.9 Heart failure, unspecified; Z85.3 Personal history of malignant neoplasm of breast; Z86.718 Personal history of other venous thrombosis and embolism